=== PATIENT | female | born 1940 | race Caucasian/White ===

== ENCOUNTER → 2020-07-13 12:58 | Outpatient (BNVA) | payer MEDICARE, SELFPAY | PROVIDERS: PCP Pediatrics; Visit Provider Hospitalist | DX: J44.9 Chronic obstructive pulmonary disease, unspecified (principal); J96.10 Chronic respiratory failure, unspecified whether with hypoxia or hypercapnia; J92.0 Pleural plaque with presence of asbestos; K44.9 Diaphragmatic hernia without obstruction or gangrene | CPT/HCPCS: 99212 ==

== ENCOUNTER → 2021-01-11 15:05 | Outpatient (BNVA) | payer MEDICARE, SELFPAY | PROVIDERS: PCP Pediatrics; Visit Provider Hospitalist | DX: J96.11 Chronic respiratory failure with hypoxia (principal); J43.2 Centrilobular emphysema; J92.0 Pleural plaque with presence of asbestos; K44.9 Diaphragmatic hernia without obstruction or gangrene | CPT/HCPCS: 99212 ==

== ENCOUNTER → 2021-03-05 14:40 | Outpatient (BNVA) | payer MEDICARE, SELFPAY | PROVIDERS: PCP Pediatrics; Visit Provider Hospitalist | DX: K44.9 Diaphragmatic hernia without obstruction or gangrene (principal); J92.0 Pleural plaque with presence of asbestos; J96.11 Chronic respiratory failure with hypoxia; J43.2 Centrilobular emphysema | CPT/HCPCS: 99212 ==

== ENCOUNTER 2021-04-13 13:26 | Outpatient (REF) | payer MEDICARE, SELFPAY ==
--- NOTE | ~2021-04-13 | CT_ITS ---
EXAMINATION: CT CHEST WITHOUT CONTRAST CLINICAL INFORMATION: Asbestos-related pleural disease. COMPARISON: Previous chest CT scan September 2019 and chest x-ray December 2019 TECHNIQUE: Multidetector volumetric CT imaging of the chest was done. Axial MIP volume rendering provided. Sagittal and coronal reformatted images were obtained. This CT examination was performed using dose optimization techniques as appropriate, variously including the following: *Automated exposure control *Adjustment of mA and/or kV according to patient size (this includes techniques or standardized protocols for targeted exams where dose is matched to indication/reason for exam; i.e. extremities or head) *Use of iterative reconstruction technique DLP: 160 mGy-cm FINDINGS: LUNGS: There is evidence of emphysema. There is linear calcification in the left upper lobe and along the left pleural fissure that is unchanged. There is a 4 mm semisolid noncalcified left upper lobe nodule axial image 50 series 11 that is stable. There is a 4 mm calcified left lower lobe nodule axial image 1:30 series 11 that is stable. There is a 4 mm calcified right lower lobe nodule axial image 122 series 11. There is mild increased interstitial markings peripherally and at the lung bases with increased peripheral reticulation and some traction bronchiolectasis. MEDIASTINUM: The thyroid gland is unremarkable. There is no mediastinal or hilar adenopathy. The heart does not appear enlarged. There is coronary artery and aortic valve calcification. There is no pericardial effusion. The thoracic aorta is normal in caliber. There is an esophageal hernia. PLEURA: There is no pleural effusion. There is linear left pleural calcification along the diaphragmatic pleural surface. No pleural mass is seen. AXILLA: No lymphadenopathy. UPPER ABDOMEN: There are small calcifications in the spleen probably related to old granulomatous disease. There is diverticulosis of the colon. There is evidence of atherosclerotic disease. OSSEOUS STRUCTURES: There is scoliosis and degenerative changes of the spine. There is a right shoulder replacement. CT/CT chest wo con IMPRESSION: Stable calcified and noncalcified pulmonary nodules. Mild emphysema. Question developing mild peripheral interstitial lung disease. Stable left diaphragmatic pleural calcification.
== END 2021-04-13 13:27 | disposition home or self-care (01) ==
LOC: HO.CT 13:26
PROVIDERS: PCP Pediatrics; Visit Provider Hospitalist
DX: J92.0 Pleural plaque with presence of asbestos (principal); J96.11 Chronic respiratory failure with hypoxia; K44.9 Diaphragmatic hernia without obstruction or gangrene
CPT/HCPCS: 71250

== ENCOUNTER → 2021-07-13 13:11 | Outpatient (BNVA) | payer MEDICARE, SELFPAY | PROVIDERS: PCP Pediatrics; Visit Provider Hospitalist | DX: J92.0 Pleural plaque with presence of asbestos (principal); J96.11 Chronic respiratory failure with hypoxia; J43.2 Centrilobular emphysema; K44.9 Diaphragmatic hernia without obstruction or gangrene; D64.9 Anemia, unspecified | CPT/HCPCS: 99212 ==

== ENCOUNTER 2021-12-21 10:59 | Outpatient (REF) | payer MEDICARE, SELFPAY ==
--- NOTE | ~2021-12-21 | XR_ITS ---
EXAMINATION: XR CHEST CLINICAL INFORMATION: Dorsalgia. COMPARISON: 04/13/2021 and 12/18/2019. TECHNIQUE: 2 views of the chest were obtained. FINDINGS: There is no evidence of acute parenchymal disease, pneumothorax, or pleural effusion. Heart normal size. No evidence of pulmonary edema. There is bibasilar scarring present as well as small calcified plaque involving the left hemidiaphragm. Suture line is seen about the mid lateral left hemithorax. Patient status post previous right shoulder arthroplasty. There is diffuse osteopenia within the thoracic spine. XR/XR chest 2V IMPRESSION: No acute disease.
== END 2021-12-21 11:00 | disposition home or self-care (01) ==
LOC: HO.XRAY 10:59
PROVIDERS: PCP Pediatrics; Visit Provider Hospitalist
DX: J92.0 Pleural plaque with presence of asbestos (principal); J96.11 Chronic respiratory failure with hypoxia; J43.2 Centrilobular emphysema; R07.81 Pleurodynia; M54.9 Dorsalgia, unspecified; K44.9 Diaphragmatic hernia without obstruction or gangrene
CPT/HCPCS: 71046; 99212; Q3014

== ENCOUNTER → 2022-01-25 13:43 | Outpatient (BNVA) | payer MEDICARE, SELFPAY | PROVIDERS: PCP Pediatrics; Visit Provider Hospitalist | DX: J43.2 Centrilobular emphysema (principal); J92.0 Pleural plaque with presence of asbestos; J96.11 Chronic respiratory failure with hypoxia; R07.81 Pleurodynia; M54.9 Dorsalgia, unspecified; K44.9 Diaphragmatic hernia without obstruction or gangrene; Z79.899 Other long term (current) drug therapy; Z99.81 Dependence on supplemental oxygen | CPT/HCPCS: 99212 ==

== ENCOUNTER 2022-03-14 13:14 | Outpatient (REF) | payer MEDICARE, SELFPAY ==
--- NOTE | ~2022-03-14 | CT_ITS ---
EXAMINATION: CT CHEST WITHOUT CONTRAST CLINICAL INFORMATION: Pleural plaque with presence of asbestosis. COMPARISON: CT chest 04/13/2021. TECHNIQUE: Multidetector volumetric CT imaging of the chest was done. Axial MIP volume rendering provided. Sagittal and coronal reformatted images were obtained. This CT examination was performed using dose optimization techniques as appropriate, variously including the following: *Automated exposure control *Adjustment of mA and/or kV according to patient size (this includes techniques or standardized protocols for targeted exams where dose is matched to indication/reason for exam; i.e. extremities or head) *Use of iterative reconstruction technique DLP: 153 mGy-cm FINDINGS: LINUX ARCHITECT: Unremarkable chest exam. LUNGS: There is diffuse centrilobular emphysema with loss of left lung volume. Linear calcification is likely a suture line in the left midlung from postsurgical changes. There is a 3 mm nodule left upper lobe surrounding small pulmonary cyst subpleural location left upper lobe image 53/6, previously measured 4 mm, a 3 mm calcified nodule right lower lobe axial image 112/6. There are punctate 1 mm calcifications scattered throughout the right lower lobe. There are prominent interstitial markings in both lungs and right middle lobe. There is subpleural parenchymal thickening left lower lobe axial image 130/6 and right lower lobe axial image 129/6, likely chronic scarring. There is a pleural-based 4 mm nodular thickening right lower lobe axial image 132/6. MEDIASTINUM: The thyroid lobes are symmetric and normal. The central trachea and the bronchi are widely patent. The heart size and the great vessels are normal caliber. There are coronary artery and cardiac valvular calcifications. No pericardial effusion seen. There is a small hiatal hernia with mild mural thickening distal esophagus and GE junction. PLEURA: There are calcified left diaphragmatic pleural plaques. No pleural effusion seen. There is minimal bilateral posterior pleural thickening. No effusion seen. AXILLA: No abnormal axillary lymph nodes seen. The chest wall is unremarkable. UPPER ABDOMEN: The visualized liver, spleen, pancreas, and bilateral adrenal glands are unremarkable. OSSEOUS STRUCTURES: There are moderate degenerative disc changes and ventral spondylosis throughout the dorsal spine. No aggressive lytic or sclerotic process seen. CT/CT chest wo con IMPRESSION: Diffuse emphysema with likely postsurgical changes left midlung with loss of left lung volume and ipsilateral mediastinal shift. Left diaphragmatic pleural calcifications, noncalcified and calcified solid nodules are essentially stable. Mild cystic changes and peripheral reticular parenchymal thickening in both lower lobes and left upper lobe are stable. No new nodules seen at this time. No abnormal lymphadenopathy. Fleischner guidelines were followed.
== END 2022-03-14 13:15 | disposition home or self-care (01) ==
LOC: HO.CT 13:14
PROVIDERS: Visit Provider Hospitalist
DX: J92.0 Pleural plaque with presence of asbestos (principal); J43.2 Centrilobular emphysema; R07.81 Pleurodynia; M54.9 Dorsalgia, unspecified
CPT/HCPCS: 71250

== ENCOUNTER → 2022-05-27 14:31 | Outpatient (BNVA) | payer MEDICARE, SELFPAY | PROVIDERS: PCP Pediatrics; Visit Provider Hospitalist | DX: J44.1 Chronic obstructive pulmonary disease with (acute) exacerbation (principal); J92.0 Pleural plaque with presence of asbestos; J96.11 Chronic respiratory failure with hypoxia; R07.81 Pleurodynia; M54.9 Dorsalgia, unspecified; K44.9 Diaphragmatic hernia without obstruction or gangrene; Z99.81 Dependence on supplemental oxygen | CPT/HCPCS: 99212 ==

== ENCOUNTER → 2022-09-08 14:52 | Outpatient (BNVA) | payer MEDICARE, SELFPAY | PROVIDERS: PCP Pediatrics; Visit Provider Hospitalist | DX: J44.1 Chronic obstructive pulmonary disease with (acute) exacerbation (principal); J96.11 Chronic respiratory failure with hypoxia; J92.0 Pleural plaque with presence of asbestos; K44.9 Diaphragmatic hernia without obstruction or gangrene | CPT/HCPCS: 99212 ==

== ENCOUNTER 2022-12-15 15:45 | Outpatient (REF) | payer MEDICARE, SELFPAY ==
--- NOTE | ~2022-12-15 | XR_ITS ---
EXAMINATION: XR CHEST CLINICAL INFORMATION: R05.9 - Cough, unspecified COMPARISON: Chest radiographs 12/21/2021, 12/18/2019, 06/04/2019; CT chest noncontrast 03/14/2022. TECHNIQUE: 2 views of the chest were obtained. FINDINGS: There are old postsurgical changes with fine chain len periphery left midlung zone, mild left volume loss, partly exacerbated by slight patient rotation. There is no lobar or segmental airspace consolidation, vascular congestion, or effusion. The costophrenic sulci are clear. Lateral view shows 5 mm nodule overlying the anterior lung base, not seen with certainty on frontal view. Finding not noted on prior exams or CT. Heart size normal. Vascularity normal. There is tortuous thoracic aorta are again seen in small sliding hiatal hernia. No acute bony abnormality. Prior right shoulder prosthesis and multilevel degenerative changes thoracic spine. XR/XR chest 2V IMPRESSION: -5 mm nodule anterior lung base on lateral view. This may be further assessed with noncontrast CT chest. -No airspace consolidation or effusion. Postsurgical changes.
== END 2022-12-15 15:46 | disposition home or self-care (01) ==
LOC: HO.XRAY 15:45
PROVIDERS: PCP Pediatrics; Visit Provider Hospitalist
DX: J44.0 Chronic obstructive pulmonary disease with (acute) lower respiratory infection (principal); R05.9 Cough, unspecified; J92.0 Pleural plaque with presence of asbestos; J96.11 Chronic respiratory failure with hypoxia; K44.9 Diaphragmatic hernia without obstruction or gangrene
CPT/HCPCS: 71046; 99212

== ENCOUNTER → 2023-01-31 13:03 | Outpatient (BNVA) | payer MEDICARE, SELFPAY | PROVIDERS: PCP Pediatrics; Visit Provider Nurse Practitioner Family | DX: J44.0 Chronic obstructive pulmonary disease with (acute) lower respiratory infection (principal); J92.0 Pleural plaque with presence of asbestos; R91.1 Solitary pulmonary nodule | CPT/HCPCS: 99212 ==

== ENCOUNTER 2023-03-06 12:57 | Outpatient (REF) | payer MEDICARE, SELFPAY ==
--- NOTE | ~2023-03-06 | CT_ITS ---
EXAMINATION: CT CHEST WITHOUT CONTRAST CLINICAL INFORMATION: Solitary pulmonary nodule COMPARISON: 03/14/2022 TECHNIQUE: Multidetector volumetric CT imaging of the chest was done. Axial MIP volume rendering provided. Sagittal and coronal reformatted images were obtained. This CT examination was performed using dose optimization techniques as appropriate, variously including the following: *Automated exposure control *Adjustment of mA and/or kV according to patient size (this includes techniques or standardized protocols for targeted exams where dose is matched to indication/reason for exam; i.e. 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 There are changes of granulomatous disease with calcified 0.3 cm right lower lobe. There is areas of honeycombing seen subpleural in the right lower lobe and left upper lobe. Central airways are patent. MEDIASTINUM: The mediastinum is normal. CORONARY ARTERY CALCIFICATION: Heavily calcified coronary arteries. PLEURA: There is no pleural effusion. No pleural mass or thickening. AXILLA: No lymphadenopathy. UPPER ABDOMEN: Visualized loops of bowel reveals changes of diverticulosis in the transverse colon. There are atherosclerotic calcifications in the abdominal aorta, visualized celiac artery. There is moderate hiatal hernia. OSSEOUS STRUCTURES: There are multilevel degenerative changes in thoracic and upper lumbar spine and dextroscoliosis. CT/CT chest wo IV con IMPRESSION: 1. Changes of centrilobular emphysema and chronic interstitial lung disease. 2. Heavily calcified coronary arteries. 3. Diverticulosis in the transverse colon. 4. Hiatal hernia. Fleischner guidelines were followed.
--- NOTE | ~2023-03-06 | XR_ITS ---
EXAMINATION: XR CHEST CLINICAL INFORMATION: Cough, unspecified COMPARISON: Chest 12/15/2022 TECHNIQUE: 2 views of the chest were obtained. FINDINGS: There are old postsurgical changes with fine chain len in the periphery of the left midlung. There is mild left lung volume loss. There is no lobar or segmental airspace consolidation, interstitial pulmonary edema or effusion. Previously noted 5 mm nodule overlying the anterior lung base on the lateral view is similar in appearance though less conspicuous. The cardiomediastinal silhouette is within normal limits. Again noted is a hiatal hernia. No acute bony abnormality. Prior right shoulder prosthesis and multilevel degenerative changes of the thoracic spine are again noted. XR/XR chest 2V IMPRESSION: No acute cardiopulmonary disease.
== END 2023-03-06 12:58 | disposition home or self-care (01) ==
LOC: HO.CT 12:57
PROVIDERS: PCP Pediatrics; Visit Provider Nurse Practitioner Family
DX: R91.1 Solitary pulmonary nodule (principal); R05.9 Cough, unspecified
CPT/HCPCS: 71046; 71250

== ENCOUNTER 2023-05-23 12:52 | Outpatient (AMB) | payer MEDICARE, SELFPAY ==
[2023-05-23 12:52] VITALS: BMI 30.1
--- NOTE | 2023-05-23 12:52 | A.OFFVIS_ITS ---
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 latex [LATEX] Allergy (Severe, Verified 05/23/23 12:53) RASH Penicillins [PENICILLINS] Allergy (Severe, Verified 05/23/23 12:53) HIVES Domperidone Allergy (Severe, Uncoded 05/23/23 12:53) Rash and Hives NSAIDS Allergy (Severe, Uncoded 05/23/23 12:53) Rash and Hives HPI HPI Comments History of Present Illness Details The patient is a 82 year-old woman with a known history of COPD o2 dependent, asbestos related lung disease and chronic cough, hiatal hernia status post fundoplication. Continues to have significant shortness of breath. On chest x-ray the patient also has asbestos plaques from when she was a child. More recently the patient had significant fall fracturing both wrists in also injury to her face. [facility] That was back in February. She has now recovered significantly. She continues to use the oxygen with good effect. She has been describing worsening cough in the last few weeks and also more shortness of breath. She was wondering about increasing her oxygen from 2 L pulse to 3. A total that was okay as long as she did only with activity and brought back down to 2 when she rested recovered. She is upset about the CT scan of the chest with postsurgical changes following left upper lobe lobectomy and potential radiation changes . However, she never had radiation nurse surgery. I did call the radiologist to a done that report and will make sure to have send a copy with the addendum stating that she never had radiation. She has been depressed because he has been indoors now for several weeks. Otherwise no other complaints. She does have moderate emphysema and now with bibasilar areas of scarring. This brings up the question interstitial lung disease related to asbestos or related to her underlying COPD emphysema. It could also be micro aspirations with her reflux disease and hiatal hernia. 09/08/2022 the patient is here for a pulmonary follow-up visit. Overall the patient has been feeling poorly. She started developing significant abdominal pain and diarrhea. she has felt weak. Although, having hard time sleeping. She has been using Ambien 5 mg daily. Patient did follow-up with GI. Her stool studies were positive for Campylobacter jejuni. she was given a couple courses of antibiotics. She is still having significant diarrhea and bloating. She is passing a lot of gas and is uncomfortable. The patient is scheduled to undergo CT scan of the abdomen. The patient did undergo a CT scan of the chest in March 2022 which was otherwise stable with her extensive emphysema and also pulmonary fibrosis likely from asbestos. she continues use her oxygen with good effect. She has not required any additional oxygen. At this point will going to continue with current respiratory regimen. I will go ahead and provide her with the higher dose Ambien with dullness tendons that she would only use it during this month and then hopefully we can wean her down again to 5 mg. 12/15/2022 the patient is here for a pulmonary follow-up visit. She is not feeling well. Significant amount of stress right now the family and she feels that she is holding onto that stress. The patient has been noticing increasing nasal congestion and also productive cough. She has been waking up with significant chest congestion and difficulty breathing. Moderate severity. Denies any fevers or chills. She denies any chest pains or pressure at this time although she does have episodic episodes. She has issues with anemia. Currently on iron. She recently saw her primary care doctor for that. In r egards of her ongoing respiratory symptoms she does have some increased crackles in the left lung base. Therefore will go ahead and treated for bronchopneumonia with doxycycline and also give her some prednisone for COPD exacerbation. She has a hard time tolerating albuterol because it makes her have too much tremors. Therefore I will give him some mix samples of Xopenex that she can try and will send a prescription over to the pharmacy. 05/23/2023 the patient is here for a telehealth visit. The patient complains of progressive dyspnea on exertion. Moderate severity. She does have her oxygen supplementation. She has a POC that reaches up to 3 L pulse rate. Right now she has required 2 L pulse. She also has a concentrator at home that she can use continuously. She does use it at 2 L continuously at nighttime. She continues use respiratory therapy. No need for prednisone or antibiotics. We did review her most recent CT scan from the summer demonstrating asbestos related lung disease likely with some degree of asbestosis and emphysema. At this point the changes are stable and she does not require any additional serial CT scans unless she has any worsening symptoms. We talked about pulmonary rehabilitation. The patient is not interested in in person rehab. I did give her information about online rehab. [facility] Medical History (Updated 05/23/23 @ 12:57 by Vic Shen MD) Anemia Asbestos-induced pleural plaque Diverticulitis Chronic respiratory failure Esophageal dysmotilities Hiatal hernia COPD (chronic obstructive pulmonary disease) Family History (Updated 07/13/20 @ 19:42 by Vic Shen MD) Other Heart & renal disease, hypertensive, with chronic kidney disease Social History Patient Tobacco Use Status: Former Tobacco user Tobacco use type: Cigarette Years Smoked: 60 years Review of Systems Const Denies chills, Denies excessive sweating, Denies fever(s), Denies night sweats and Reports weight loss ENT Reports Normal hearing present Card Denies chest pain, Denies chest pain at rest, Denies chest pain with activity, Denies leg edema and Denies dyspnea Resp Denies chest congestion, Denies excessive phlegm production, Denies pain on inspiration, Denies pain with cough, Denies dyspnea, Denies stridor and Denies wheezing GI Reports early satiety and Reports dyspepsia Musc Denies myalgias Neuro Reports Normal hearing present Endo Denies excessive sweating Manpreet/Lymph Denies lymphadenopathy Aller/Immun Denies seasonal rhinorrhea and Denies wheezing Physical Exam Vital Signs: BMI result Body Mass Index 30.1 Const General: comfortable Orientation/consciousness: patient oriented x3 Resp Effort & Inspection: able to speak in complete sentences Neuro General: patient oriented x3 Cranial nerves: Yes Normal hearing present Assessment & Plan Assessment & Plan (1) COPD (chronic obstructive pulmonary disease): Code(s): J44.9 - Chronic obstructive pulmonary disease, unspecified Qualifiers: COPD type: COPD with acute lower respiratory infection Qualified Code(s): J44.0 - Chronic obstructive pulmonary disease with (acute) lower respiratory infection (2) Asbestos-induced pleural plaque: Code(s): J92.0 - Pleural plaque with presence of asbestos (3) Chronic respiratory failure: Code(s): J96.10 - Chronic respiratory failure, unspecified whether with hypoxia or hypercapnia Qualifiers: Respiratory failure complication: hypoxia Qualified Code(s): J96.11 - Chronic respiratory failure with hypoxia (4) Hiatal hernia: Code(s): K44.9 - Diaphragmatic hernia without obstruction or gangrene (5) Cough: Code(s): R05.9 - Cough, unspecified Qualifiers: Cough type: chronic Qualified Code(s): R05.3 - Chronic cough Plan Continue oxygen supplementation maintain a pulse ox above 90% continue Anoro daily nebulized therapy once a day in the morning and also as needed short-acting beta agonist as needed, switch to Xopenex reflux diet F/U 6 months Telehealth Telehealth Location of provider rendering services: practice address Location of patient: address on file Patient Identification confirmed using: Name, : Yes Telehealth method: voice only Patient verbally consented to treatment: Yes Patient verbally consented to billing insurance company: Yes Patient informed of any privacy concerns related to visit: Yes Coding Level of Care Code Tele Est Pt Level 4 (01134) Diagnoses Chronic obstructive pulmonary disease with acute lower respiratory infection J44.0 COPD type: COPD with acute lower respiratory infection Asbestos-induced pleural plaque J92.0 Chronic respiratory failure with hypoxia J96.11 Respiratory failure complication: hypoxia Hiatal hernia K44.9 Chronic cough R05.3 Cough type: chronic Time Spent (min) 14
== END 2023-05-23 13:21 | disposition home or self-care (01) ==
LOC: HO.HPS 12:52
PROVIDERS: PCP Pediatrics; Visit Provider Hospitalist
DX: J44.0 Chronic obstructive pulmonary disease with (acute) lower respiratory infection (principal); J92.0 Pleural plaque with presence of asbestos; J96.11 Chronic respiratory failure with hypoxia; R05.3 Chronic cough
CPT/HCPCS: G2252

== ENCOUNTER → 2023-05-23 12:52 | Outpatient (BNVA) | payer MEDICARE, SELFPAY | PROVIDERS: PCP Pediatrics; Visit Provider Hospitalist ==

== ENCOUNTER 2023-11-28 14:07 | Outpatient (AMB) | payer MEDICARE, SELFPAY ==
--- NOTE | 2023-11-28 14:17 | MHC.OFFVIS ---
Vital Signs 11/28/23 14:19 Height 4 ft 11 in Weight 139 lb BMI 28.1 BP 128/60 Blood Pressure Location Lt brachial Position Sitting Pulse 92 Pulse Source Pulse Oximeter Pulse Oximetry (%) 93 Oxygen Delivery Method Room Air Comment 3 Liters Oxygen([employer]) Intake Visit Reasons: COPD follow-up Network Security Analyst Required: No Allergies clopidogrel [From PLAVIX] Allergy (Severe, Verified 11/28/23 14:17) MUSCLE WEAKNESS. latex [LATEX] Allergy (Severe, Verified 11/28/23 14:17) RASH Penicillins [PENICILLINS] Allergy (Severe, Verified 11/28/23 14:17) HIVES Domperidone Allergy (Severe, Uncoded 11/28/23 14:17) Rash and Hives NSAIDS Allergy (Severe, Uncoded 11/28/23 14:17) Rash and Hives HPI Comments Details: The patient is a 82 year-old woman with a known history of COPD o2 dependent, asbestos related lung disease and chronic cough, hiatal hernia status post fundoplication. Continues to have significant shortness of breath. On chest x-ray the patient also has asbestos plaques from when she was a child. More recently the patient had significant fall fracturing both wrists in also injury to her face. [facility] That was back in February. She has now recovered significantly. She continues to use the oxygen with good effect. She has been describing worsening cough in the last few weeks and also more shortness of breath. She was wondering about increasing her oxygen from 2 L pulse to 3. A total that was okay as long as she did only with activity and brought back down to 2 when she rested recovered. She is upset about the CT scan of the chest with postsurgical changes following left upper lobe lobectomy and potential radiation changes . However, she never had radiation nurse surgery. I did call the radiologist to a done that report and will make sure to have send a copy with the addendum stating that she never had radiation. She has been depressed because he has been indoors now for several weeks. Otherwise no other complaints. She does have moderate emphysema and now with bibasilar areas of scarring. This brings up the question interstitial lung disease related to asbestos or related to her underlying COPD emphysema. It could also be micro aspirations with her reflux disease and hiatal hernia. 09/08/2022 the patient is here for a pulmonary follow-up visit. Overall the patient has been feeling poorly. She started developing significant abdominal pain and diarrhea. she has felt weak. Although, having hard time sleeping. She has been using Ambien 5 mg daily. Patient did follow-up with GI. Her stool studies were positive for Campylobacter jejuni. she was given a couple courses of antibiotics. She is still having significant diarrhea and bloating. She is passing a lot of gas and is uncomfortable. The patient is scheduled to undergo CT scan of the abdomen. The patient did undergo a CT scan of the chest in March 2022 which was otherwise stable with her extensive emphysema and also pulmonary fibrosis likely from asbestos. she continues use her oxygen with good effect. She has not required any additional oxygen. At this point will going to continue with current respiratory regimen. I will go ahead and provide her with the higher dose Ambien with dullness tendons that she would only use it during this month and then hopefully we can wean her down again to 5 mg. 12/15/2022 the patient is here for a pulmonary follow-up visit. She is not feeling well. Significant amount of stress right now the family and she feels that she is holding onto that stress. The patient has been noticing increasing nasal congestion and also productive cough. She has been waking up with significant chest congestion and difficulty breathing. Moderate severity. Denies any fevers or chills. She denies any chest pains or pressure at this time although she does have episodic episodes. She has issues with anemia. Currently on iron. She recently saw her primary care doctor for that. In regards of her ongoing respiratory symptoms she does have some increased crackles in the left lung base. Therefore will go ahead and treated for bronchopneumonia with doxycycline and also give her some prednisone for COPD exacerbation. She has a hard time tolerating albuterol because it makes her have too much tremors. Therefore I will give him some mix samples of Xopenex that she can try and will send a prescription over to the pharmacy. 05/23/2023 the patient is here for a telehealth visit. The patient complains of progressive dyspnea on exertion. Moderate severity. She does have her oxygen supplementation. She has a POC that reaches up to 3 L pulse rate. Right now she has required 2 L pulse. She also has a concentrator at home that she can use continuously. She does use it at 2 L continuously at nighttime. She continues use respiratory therapy. No need for prednisone or antibiotics. We did review her most recent CT scan from the summer of 2022 demonstrating asbestos related lung disease likely with some degree of asbestosis and emphysema. At this point the changes are stable and she does not require any additional serial CT scans unless she has any worsening symptoms. We talked about pulmonary rehabilitation. The patient is not interested in in person rehab. I did give her information about online rehab. 11/28/2023 the patient is here for hospital follow-up visit. She has not been feeling well. She states that her having some difficulties after having a knee to replacement. The surgery did not taking therefore he was mobilized initially for 6 weeks and then immobilized again for 6 weeks. Therefore, she has been doing most of the housework. She has had increased amount of stress because of the health issues going on. She went to the ER developing some back pain and shortness of breath. She was treated and released. She was also seen by urgent care. The patient ultimately developed elevations in the blood pressure up to about 190/100 and she felt kind of ?funny?. She ended up going to the ER. They treated her for low oxygen but they did not bother to tolerate anything about the blood pressure. It has not documented in any of the blood work. She was briefly admitted to the hospital with COPD exacerbation. Her blood pressure stabilized. Heart rate was also stable. She does take Coumadin and also takes blood pressure medications. The patient has been having issues with her significant hiatal hernia. Having significant nausea. She is also having issues with swallowing dysphagia. The patient is willing to try small dose of a promotility agent, Reglan. This way we can try to improve her motility. Although she understands that high dose this could result in irreversible tremors. Therefore will put him on a small dose of medications if helps with the nausea and dysphagia. If it does not she can always stop it. The patient also has been coughing up some secretions. She also some blood-tinged secretions. I did review her recent CT scan of the chest that she had had [facility] demonstrating chronic changes including emphysema postoperative changes some scarring but no acute airspace disease. The patient has been using her oxygen with good effect. Today her oxygen was in the high 80s but also because her oxygen had accidentally turned off. [facility] Medical History (Updated 05/23/23 @ 12:57 by Vic Shen MD) Anemia Asbestos-induced pleural plaque Diverticulitis Chronic respiratory failure Esophageal dysmotilities Hiatal hernia COPD (chronic obstructive pulmonary disease) Family History (Updated 07/13/20 @ 19:42 by Vic Shen MD) Other Heart & renal disease, hypertensive, with chronic kidney disease Social History Patient Tobacco Use Status: Former Tobacco user Tobacco use type: Cigarette Years Smoked: 60 years Review of Systems Const Denies chills, Denies excessive sweating, Reports fatigue, Denies fever(s), Denies night sweats and Reports weight loss ENT Reports Normal hearing present and Reports dysphagia Card Denies chest pain, Denies chest pain at rest, Denies chest pain with activity, Denies leg edema, Denies dyspnea and Reports dyspnea on exertion Resp Denies chest congestion, Denies excessive phlegm production, Denies pain on inspiration, Denies pain with cough, Denies dyspnea, Reports dyspnea on exertion, Denies stridor and Denies wheezing GI Reports dysphagia, Reports early satiety, Reports dyspepsia and Reports nausea Musc Denies myalgias Neuro Reports Normal hearing present Endo Denies excessive sweating and Reports fatigue Manpreet/Lymph Denies lymphadenopathy Aller/Immun Denies seasonal rhinorrhea and Denies wheezing Physical Exam Vital Signs: Last Vital Signs Pulse 92 11/28/23 14:19 BP 128/60 11/28/23 14:19 Pulse Ox 93 11/28/23 14:19 Oxygen Delivery Method Room Air 11/28/23 14:19 BMI result Body Mass Index 28.1 Const General: alert Neck Neck: Yes normal visual inspection, Yes full ROM and Yes no lymphadenopathy Chest Chest palpation & inspection: normal inspection of the chest Resp Effort & Inspection: prolonged expiratory phase Auscultation: crackles on the left, no wheezes and diminished lung sounds Cardio Rate: regular rate Rhythm: regular rhythm Heart sounds: S1 normal heart sound present, S2 normal heart sound present and Murmur heart sound present systolic IV/ GI Palpation (GI): Soft to palpation and nontender Auscultation: normal bowel sounds Neuro Cranial nerves: Yes Normal hearing present Assessment & Plan Assessment & Plan (1) COPD (chronic obstructive pulmonary disease): Code(s): J44.9 - Chronic obstructive pulmonary disease, unspecified Category: Medical Qualifiers: COPD type: COPD with acute lower respiratory infection Qualified Code(s): J44.0 - Chronic obstructive pulmonary disease with (acute) lower respiratory infection (2) Asbestos-induced pleural plaque: Code(s): J92.0 - Pleural plaque with presence of asbestos Category: Medical (3) Chronic respiratory failure: Code(s): J96.10 - Chronic respiratory failure, unspecified whether with hypoxia or hypercapnia Category: Medical Qualifiers: Respiratory failure complication: hypoxia Qualified Code(s): J96.11 - Chronic respiratory failure with hypoxia (4) Hiatal hernia: Code(s): K44.9 - Diaphragmatic hernia without obstruction or gangrene Category: Medical (5) Cough: Code(s): R05.9 - Cough, unspecified Category: Medical Qualifiers: Cough type: chronic Qualified Code(s): R05.3 - Chronic cough Plan Continue oxygen supplementation maintain a pulse ox above 90% continue Anoro daily nebulized therapy once a day in the morning and also as needed short-acting beta agonist as needed, switch to Xopenex reflux diet srart reglan 5mg BID, stop if any tremors arise zofran as needed consider barium swallow if no better F/U with PCP regarding labile BP start Doxycycline for sinusitis F/U 3-4 months Medications: New metoclopramide HCl (Reglan) 5 mg PO BID 60 tabs 1RF 30 days doxycycline monohydrate 100 mg PO BID 28 tabs 0RF 14 days ondansetron 4 mg PO Q8H PRN 20 tabs 0RF nausea and vomiting 10 days Coding Level of Care Code Est Pt Level 4 (99759) Diagnoses Chronic obstructive pulmonary disease with acute lower respiratory infection J44.0 COPD type: COPD with acute lower respiratory infection Asbestos-induced pleural plaque J92.0 Chronic respiratory failure with hypoxia J96.11 Respiratory failure complication: hypoxia Hiatal hernia K44.9 Chronic cough R05.3 Cough type: chronic Time Spent (min) 21
[2023-11-28 14:19] VITALS: BP 128/60; PULSE 92; O2SAT 93; BMI 28.1
== END 2023-11-28 14:57 | disposition home or self-care (01) ==
PROVIDERS: PCP Pediatrics; Visit Provider Hospitalist
DX: J44.0 Chronic obstructive pulmonary disease with (acute) lower respiratory infection (principal); J92.0 Pleural plaque with presence of asbestos; J96.11 Chronic respiratory failure with hypoxia; K44.9 Diaphragmatic hernia without obstruction or gangrene; R05.3 Chronic cough
CPT/HCPCS: 99214

== ENCOUNTER → 2023-11-28 14:07 | Outpatient (BNVA) | payer MEDICARE, SELFPAY | PROVIDERS: PCP Pediatrics; Visit Provider Hospitalist | DX: J44.0 Chronic obstructive pulmonary disease with (acute) lower respiratory infection (principal); J92.0 Pleural plaque with presence of asbestos; J96.11 Chronic respiratory failure with hypoxia; R05.3 Chronic cough; K44.9 Diaphragmatic hernia without obstruction or gangrene | CPT/HCPCS: 99212 ==

== ENCOUNTER 2024-04-23 09:37 | Outpatient (AMB) | payer MEDICARE, SELFPAY ==
--- NOTE | 2024-04-23 09:43 | MHC.OFFVIS ---
Vital Signs 04/23/24 09:45 Height 4 ft 11 in Weight 129 lb BMI 26.1 BP 128/70 Blood Pressure Location Lt brachial Position Sitting Pulse 90 Pulse Source Pulse Oximeter Pulse Oximetry (%) 93 Oxygen Delivery Method Room Air Comment 2 Liters Oxygen(Inogen) Intake Visit Reasons: COPD [employer] Required: No Allergies clopidogrel [From PLAVIX] Allergy (Severe, Verified 04/23/24 09:44) MUSCLE WEAKNESS. latex [LATEX] Allergy (Severe, Verified 04/23/24 09:44) RASH Penicillins [PENICILLINS] Allergy (Severe, Verified 04/23/24 09:44) HIVES Domperidone Allergy (Severe, Uncoded 04/23/24 09:44) Rash and Hives NSAIDS Allergy (Severe, Uncoded 04/23/24 09:44) Rash and Hives HPI Comments Details: The patient is a 83 year-old woman with a known history of COPD o2 dependent, asbestos related lung disease and chronic cough, hiatal hernia status post fundoplication. Continues to have significant shortness of breath. On chest x-ray the patient also has asbestos plaques from when she was a child. More recently the patient had significant fall fracturing both wrists in also injury to her face. [facility] That was back in February. She has now recovered significantly. She continues to use the oxygen with good effect. She has been describing worsening cough in the last few weeks and also more shortness of breath. She was wondering about increasing her oxygen from 2 L pulse to 3. A total that was okay as long as she did only with activity and brought back down to 2 when she rested recovered. She is upset about the CT scan of the chest with postsurgical changes following left upper lobe lobectomy and potential radiation changes . However, she never had radiation nurse surgery. I did call the radiologist to a done that report and will make sure to have send a copy with the addendum stating that she never had radiation. She has been depressed because he has been indoors now for several weeks. Otherwise no other complaints. She does have moderate emphysema and now with bibasilar areas of scarring. This brings up the question interstitial lung disease related to asbestos or related to her underlying COPD emphysema. It could also be micro aspirations with her reflux disease and hiatal hernia. 09/08/2022 the patient is here for a pulmonary follow-up visit. Overall the patient has been feeling poorly. She started developing significant abdominal pain and diarrhea. she has felt weak. Although, having hard time sleeping. She has been using Ambien 5 mg daily. Patient did follow-up with GI. Her stool studies were positive for Campylobacter jejuni. she was given a couple courses of antibiotics. She is still having significant diarrhea and bloating. She is passing a lot of gas and is uncomfortable. The patient is scheduled to undergo CT scan of the abdomen. The patient did undergo a CT scan of the chest in March 2022 which was otherwise stable with her extensive emphysema and also pulmonary fibrosis likely from asbestos. she continues use her oxygen with good effect. She has not required any additional oxygen. At this point will going to continue with current respiratory regimen. I will go ahead and provide her with the higher dose Ambien with dullness tendons that she would only use it during this month and then hopefully we can wean her down again to 5 mg. 12/15/2022 the patient is here for a pulmonary follow-up visit. She is not feeling well. Significant amount of stress right now the family and she feels that she is holding onto that stress. The patient has been noticing increasing nasal congestion and also productive cough. She has been waking up with significant chest congestion and difficulty breathing. Moderate severity. Denies any fevers or chills. She denies any chest pains or pressure at this time although she does have episodic episodes. She has issues with anemia. Currently on iron. She recently saw her primary care doctor for that. In regards of her ongoing respiratory symptoms she does have some increased crackles in the left lung base. Therefore will go ahead and treated for bronchopneumonia with doxycycline and also give her some prednisone for COPD exacerbation. She has a hard time tolerating albuterol because it makes her have too much tremors. Therefore I will give him some mix samples of Xopenex that she can try and will send a prescription over to the pharmacy. 05/23/2023 the patient is here for a telehealth visit. The patient complains of progressive dyspnea on exertion. Moderate severity. She does have her oxygen supplementation. She has a POC that reaches up to 3 L pulse rate. Right now she has required 2 L pulse. She also has a concentrator at home that she can use continuously. She does use it at 2 L continuously at nighttime. She continues use respiratory therapy. No need for prednisone or antibiotics. We did review her most recent CT scan from the summer of 2022 demonstrating asbestos related lung disease likely with some degree of asbestosis and emphysema. At this point the changes are stable and she does not require any additional serial CT scans unless she has any worsening symptoms. We talked about pulmonary rehabilitation. The patient is not interested in in person rehab. I did give her information about online rehab. 11/28/2023 the patient is here for hospital follow-up visit. She has not been feeling well. She states that her having some difficulties after having a knee to replacement. The surgery did not taking therefore he was mobilized initially for 6 weeks and then immobilized again for 6 weeks. Therefore, she has been doing most of the housework. She has had increased amount of stress because of the health issues going on. She went to the ER developing some back pain and shortness of breath. She was treated and released. She was also seen by urgent care. The patient ultimately developed elevations in the blood pressure up to about 190/100 and she felt kind of ?funny?. She ended up going to the ER. They treated her for low oxygen but they did not bother to tolerate anything about the blood pressure. It has not documented in any of the blood work. She was briefly admitted to the hospital with COPD exacerbation. Her blood pressure stabilized. Heart rate was also stable. She does take Coumadin and also takes blood pressure medications. The patient has been having issues with her significant hiatal hernia. Having significant nausea. She is also having issues with swallowing dysphagia. The patient is willing to try small dose of a promotility agent, Reglan. This way we can try to improve her motility. Although she understands that high dose this could result in irreversible tremors. Therefore will put him on a small dose of medications if helps with the nausea and dysphagia. If it does not she can always stop it. The patient also has been coughing up some secretions. She also some blood-tinged secretions. I did review her recent CT scan of the chest that she had had [facility] demonstrating chronic changes including emphysema postoperative changes some scarring but no acute airspace disease. The patient has been using her oxygen with good effect. Today her oxygen was in the high 80s but also because her oxygen had accidentally turned off. 04/23/2024 the patient is here for a pulmonary follow-up visit. Overall she is doing fairly well from a respiratory status. She continues use her oxygen. Currently has a portable oxygen concentrator. She does have difficulties with her perforated nasal septum. This is causing her to have some bleeding. Will go ahead and send her Bactroban to see this provides her some relief. She has also has saline gel to provide her some relief as well. She can also take a break from the oxygen at times. In addition to that she still having issues with her hiatal hernia. Although she knows that is usually affected by certain things that she eats. We did talk about eating techniques to avoid significant dysphagia. The patient continues in the Anoro. She has not had to use her rescue inhaler which is reassuring. She recently saw her labor representative and she was told that she has worsening valvular disease. Likely aortic stenosis among others. She is scheduled to undergo a cardiac catheterization. I did explain to her the cardiac catheterization will give her better information about the degree of the severity of the valves and at that point she can decide how to move forward. She continues on the Coumadin. She is tolerating well. Recently she did have a fall and she did not follow-up in the ER. She also had some massage down to lower extremities causing some bruising. So therefore she needs to be careful based on the fact that she is on anticoagulation. Also to note the patient is aware that she can not be without anticoagulation because of risk of blood clots is high. Therefore she definitely needs bridging with Lovenox for any time off the Coumadin. [facility] Medical History (Updated 04/23/24 @ 20:03 by Vic Shen MD) Valvular heart disease Anemia Asbestos-induced pleural plaque Diverticulitis Chronic respiratory failure Esophageal dysmotilities Hiatal hernia COPD (chronic obstructive pulmonary disease) Family History (Updated 07/13/20 @ 19:42 by Vic Shen MD) Other Heart & renal disease, hypertensive, with chronic kidney disease Social History Patient Tobacco Use Status: Former Tobacco user Tobacco use type: Cigarette Years Smoked: 60 years Review of Systems Const Denies chills, Denies excessive sweating, Reports fatigue, Denies fever(s) and Denies night sweats ENT Reports dysphagia Card Denies chest pain, Denies chest pain at rest, Denies chest pain with activity, Denies leg edema, Denies dyspnea and Reports dyspnea on exertion Resp Denies chest congestion, Denies excessive phlegm production, Denies pain on inspiration, Denies pain with cough, Denies dyspnea, Reports dyspnea on exertion, Denies stridor and Denies wheezing GI Reports dysphagia, Reports early satiety, Reports dyspepsia and Reports nausea Musc Denies myalgias Endo Denies excessive sweating and Reports fatigue Manpreet/Lymph Denies lymphadenopathy Aller/Immun Denies seasonal rhinorrhea and Denies wheezing Physical Exam Vital Signs: Last Vital Signs Pulse 90 04/23/24 09:45 BP 128/70 04/23/24 09:45 Pulse Ox 93 04/23/24 09:45 Oxygen Delivery Method Room Air 04/23/24 09:45 BMI result Body Mass Index 26.1 Const General: alert Neck Neck: Yes normal visual inspection, Yes full ROM and Yes no lymphadenopathy Chest Chest palpation & inspection: normal inspection of the chest Resp Effort & Inspection: normal respiratory effort Auscultation: crackles on the left, no wheezes and diminished lung sounds Cardio Rate: regular rate Rhythm: regular rhythm Heart sounds: S1 normal heart sound present, S2 normal heart sound present and Murmur heart sound present systolic IV/ GI Palpation (GI): Soft to palpation and nontender Auscultation: normal bowel sounds Assessment & Plan Assessment & Plan (1) COPD (chronic obstructive pulmonary disease): Code(s): J44.9 - Chronic obstructive pulmonary disease, unspecified Category: Medical Qualifiers: COPD type: COPD with acute lower respiratory infection Qualified Code(s): J44.0 - Chronic obstructive pulmonary disease with (acute) lower respiratory infection (2) Asbestos-induced pleural plaque: Code(s): J92.0 - Pleural plaque with presence of asbestos Category: Medical (3) Chronic respiratory failure: Code(s): J96.10 - Chronic respiratory failure, unspecified whether with hypoxia or hypercapnia Category: Medical Qualifiers: Respiratory failure complication: hypoxia Qualified Code(s): J96.11 - Chronic respiratory failure with hypoxia (4) Hiatal hernia: Code(s): K44.9 - Diaphragmatic hernia without obstruction or gangrene Category: Medical (5) Cough: Code(s): R05.9 - Cough, unspecified Category: Medical Qualifiers: Cough type: chronic Qualified Code(s): R05.3 - Chronic cough (6) Valvular heart disease: Code(s): I38 - Endocarditis, valve unspecified Category: Medical Plan Continue oxygen supplementation maintain a pulse ox above 90% continue Anoro daily nebulized therapy once a day in the morning and also as needed short-acting beta agonist as needed, switch to Xopenex reflux diet stpped reglan zofran as needed bactroban to nares Awaiting cardiac cath to asses valvular disease F/U 6 months Medications: New mupirocin 2% 1 appl topical BID 22 grams 2RF 7 days Coding Level of Care Code Est Pt Level 4 (93266) Complex EM visit Add On G2211 Diagnoses Chronic obstructive pulmonary disease with acute lower respiratory infection J44.0 COPD type: COPD with acute lower respiratory infection Asbestos-induced pleural plaque J92.0 Chronic respiratory failure with hypoxia J96.11 Respiratory failure complication: hypoxia Hiatal hernia K44.9 Chronic cough R05.3 Cough type: chronic Valvular heart disease I38 Time Spent (min) 17
[2024-04-23 09:45] VITALS: BP 128/70; PULSE 90; O2SAT 93; BMI 26.1
== END 2024-04-23 10:12 | disposition home or self-care (01) ==
PROVIDERS: PCP Pediatrics; Visit Provider Hospitalist
DX: J44.0 Chronic obstructive pulmonary disease with (acute) lower respiratory infection (principal); J92.0 Pleural plaque with presence of asbestos; J96.11 Chronic respiratory failure with hypoxia; K44.9 Diaphragmatic hernia without obstruction or gangrene; R05.3 Chronic cough; I38 Endocarditis, valve unspecified
CPT/HCPCS: 99214; G2211

== ENCOUNTER → 2024-04-23 09:37 | Outpatient (BNVA) | payer MEDICARE, SELFPAY | PROVIDERS: PCP Pediatrics; Visit Provider Hospitalist | DX: J44.0 Chronic obstructive pulmonary disease with (acute) lower respiratory infection (principal); J92.0 Pleural plaque with presence of asbestos; J96.11 Chronic respiratory failure with hypoxia; R05.3 Chronic cough; I38 Endocarditis, valve unspecified; K44.9 Diaphragmatic hernia without obstruction or gangrene; Z99.81 Dependence on supplemental oxygen | CPT/HCPCS: 99212 ==

== ENCOUNTER 2024-10-24 13:56 | Outpatient (AMB) | payer MEDICARE, SELFPAY ==
[2024-10-24 14:00] VITALS: BP 124/72; PULSE 64; O2SAT 99; BMI 26.0
--- NOTE | 2024-10-24 14:00 | A.OFFVIS_ITS ---
Vital Signs 10/24/24 14:00 Height 4 ft 11 in Weight 128 lb 15.527 oz BMI 26.0 BP 124/72 Blood Pressure Location Lt brachial Position Sitting Pulse 64 Pulse Source Pulse Oximeter Pulse Oximetry (%) 99 Oxygen Delivery Method Nasal Cannula Oxygen Flow Rate 2 Intake Visit Reasons: COPD Allergies clopidogrel [From PLAVIX] Allergy (Severe, Verified 10/24/24 14:08) MUSCLE WEAKNESS. latex [LATEX] Allergy (Severe, Verified 10/24/24 14:08) RASH Penicillins [PENICILLINS] Allergy (Severe, Verified 10/24/24 14:08) HIVES Domperidone Allergy (Severe, Uncoded 10/24/24 14:08) Rash and Hives NSAIDS Allergy (Severe, Uncoded 10/24/24 14:08) Rash and Hives HPI Comments Details: The patient is a 83 year-old woman with a known history of COPD o2 dependent, asbestos related lung disease and chronic cough, hiatal hernia status post fundoplication. Continues to have significant shortness of breath. On chest x- ray the patient also has asbestos plaques from when she was a child. More recently the patient had significant fall fracturing both wrists in also injury to her face. [facility] That was back in February. She has now recovered significantly. She continues to use the oxygen with good effect. She has been describing worsening cough in the last few weeks and also more shortness of breath. She was wondering about increasing her oxygen from 2 L pulse to 3. A total that was okay as long as she did only with activity and brought back down to 2 when she rested recovered. She is upset about the CT scan of the chest with postsurgical changes following left upper lobe lobectomy and potential radiation changes . However, she never had radiation nurse surgery. I did call the radiologist to a done that report and will make sure to have send a copy with the addendum stating that she never had radiation. She has been depressed because he has been indoors now for several weeks. Otherwise no other complaints. She does have moderate emphysema and now with bibasilar areas of scarring. This brings up the question interstitial lung disease related to asbestos or related to her underlying COPD emphysema. It could also be micro aspirations with her reflux disease and hiatal hernia. 09/08/2022 the patient is here for a pulmonary follow-up visit. Overall the patient has been feeling poorly. She started developing significant abdominal pain and diarrhea. she has felt weak. Although, having hard time sleeping. She has been using Ambien 5 mg daily. Patient did follow-up with GI. Her stool studies were positive for Campylobacter jejuni. she was given a couple courses of antibiotics. She is still having significant diarrhea and bloating. She is passing a lot of gas and is uncomfortable. The patient is scheduled to undergo CT scan of the abdomen. The patient did undergo a CT scan of the chest in March 2022 which was otherwise stable with her extensive emphysema and also pulmonary fibrosis likely from asbestos. she continues use her oxygen with good effect. She has not required any additional oxygen. At this point will going to continue with current respiratory regimen. I will go ahead and provide her with the higher dose Ambien with dullness tendons that she would only use it during this month and then hopefully we can wean her down again to 5 mg. 12/15/2022 the patient is here for a pulmonary follow-up visit. She is not feeling well. Significant amount of stress right now the family and she feels that she is holding onto that stress. The patient has been noticing increasing nasal congestion and also productive cough. She has been waking up with significant chest congestion and difficulty breathing. Moderate severity. D enies any fevers or chills. She denies any chest pains or pressure at this time although she does have episodic episodes. She has issues with anemia. Currently on iron. She recently saw her primary care doctor for that. In regards of her ongoing respiratory symptoms she does have some increased crackles in the left lung base. Therefore will go ahead and treated for bronchopneumonia with doxycycline and also give her some prednisone for COPD exacerbation. She has a hard time tolerating albuterol because it makes her have too much tremors. Therefore I will give him some mix samples of Xopenex that she can try and will send a prescription over to the pharmacy. 05/23/2023 the patient is here for a telehealth visit. The patient complains of progressive dyspnea on exertion. Moderate severity. She does have her oxygen supplementation. She has a POC that reaches up to 3 L pulse rate. Right now she has required 2 L pulse. She also has a concentrator at home that she can use continuously. She does use it at 2 L continuously at nighttime. She continues use respiratory therapy. No need for prednisone or antibiotics. We did review her most recent CT scan from the summer of 2022 demonstrating asbestos related lung disease likely with some degree of asbestosis and emphysema. At this point the changes are stable and she does not require any additional serial CT scans unless she has any worsening symptoms. We talked about pulmonary rehabilitation. The patient is not interested in in person rehab. I did give her information about online rehab. 11/28/2023 the patient is here for hospital follow-up visit. She has not been feeling well. She states that her having some difficulties after having a knee to replacement. The surgery did not taking therefore he was mobilized initially for 6 weeks and then immobilized again for 6 weeks. Therefore, she has been doing most of the housework. She has had increased amount of stress because of the health issues going on. She went to the ER developing some back pain and shortness of breath. She was treated and released. She was also seen by urgent care. The patient ultimately developed elevations in the blood pressure up to about 190/100 and she felt kind of ?funny?. She ended up going to the ER. They treated her for low oxygen but they did not bother to tolerate anything about the blood pressure. It has not documented in any of the blood work. She was briefly admitted to the hospital with COPD exacerbation. Her blood pressure stabilized. Heart rate was also stable. She does take Coumadin and also takes blood pressure medications. The patient has been having issues with her significant hiatal hernia. Having significant nausea. She is also having issues with swallowing dysphagia. The patient is willing to try small dose of a promotility agent, Reglan. This way we can try to improve her motility. Although she understands that high dose this could result in irreversible tremors. Therefore will put him on a small dose of medications if helps with the nausea and dysphagia. If it does not she can always stop it. The patient also has been coughing up some secretions. She also some blood-tinged secretions. I did review her recent CT scan of the chest that she had had [facility] demonstrating chronic changes including emphysema postoperative changes some scarring but no acute airspace disease. The patient has been using her oxygen with good effect. Today her oxygen was in the high 80s but also because her oxygen had accidentally turned off. 04/23/2024 the patient is here for a pulmonary follow-up visit. Overall she is doing fairly well from a respiratory status. She continues use her oxygen. Currently has a portable oxygen concentrator. She does have d ifficulties with her perforated nasal septum. This is causing her to have some bleeding. Will go ahead and send her Bactroban to see this provides her some relief. She has also has saline gel to provide her some relief as well. She can also take a break from the oxygen at times. In addition to that she still having issues with her hiatal hernia. Although she knows that is usually affected by certain things that she eats. We did talk about eating techniques to avoid significant dysphagia. The patient continues in the Anoro. She has not had to use her rescue inhaler which is reassuring. She recently saw her slasher machine operator and she was told that she has worsening valvular disease. Likely aortic stenosis among others. She is scheduled to undergo a cardiac catheterization. I did explain to her the cardiac catheterization will give her better information about the degree of the severity of the valves and at that point she can decide how to move forward. She continues on the Coumadin. She is tolerating well. Recently she did have a fall and she did not follow-up in the ER. She also had some massage down to lower extremities causing some bruising. So therefore she needs to be careful based on the fact that she is on anticoagulation. Also to note the patient is aware that she can not be without anticoagulation because of risk of blood clots is high. Therefore she defini tely needs bridging with Lovenox for any time off the Coumadin. 10/24/2024 the patient is here for a pulmonary follow-up visit. Overall the patient has been doing okay. Since we last spoke she did have her trans vascular aortic valve replacement without any difficulties. Actually her breathing got a lot better. In addition to that she had a fall or to which she ended up fracturing her pelvis. She did not need surgery although she need rehabilitation. She is back using her walker and walking and she is doing okay. She is using her oxygen with good effect. She is also using her respiratory therapy with good effect. When she was at [facility] back in June she did undergo a CT scan of the chest which I personally reviewed with her. She does have a [id number] hiatal hernia and otherwise interstitial changes specially since she has been exposed to asbestos. But overall pretty stable and no significant findings to be concerned about. Will plan to follow-up in a year's time if the patient has any issues prior to that she will call for an earlier assessment. [facility] Medical History (Updated 10/24/24 @ 22:01 by Vic Shen MD) Valvular heart disease Anemia Asbestos-induced pleural plaque Diverticulitis Chronic respiratory failure Esophageal dysmotilities Hiatal hernia COPD (chronic obstructive pulmonary disease) Family History (Updated 07/13/20 @ 19:42 by Vic Shen MD) Other Heart & renal disease, hypertensive, with chronic kidney disease Social History Patient Tobacco Use Status: Former Tobacco user Tobacco use type: Cigarette Years Smoked: 60 years Review of Systems Const Denies chills, Denies excessive sweating, Reports fatigue, Denies fever(s) and Denies night sweats ENT Reports dysphagia Card Denies chest pain, Denies chest pain at rest, Denies chest pain with activity, Denies leg edema, Denies dyspnea and Reports dyspnea on exertion Resp Denies chest congestion, Denies excessive phlegm production, Denies pain on inspiration, Denies pain with cough, Denies dyspnea, Reports dyspnea on exertion, Denies stridor and Denies wheezing GI Reports dysphagia, Reports early satiety, Reports dyspepsia and Reports nausea Musc Reports abnormal gait and Reports myalgias Neuro Reports abnormal gait Endo Denies excessive sweating and Reports fatigue Manpreet/Lymph Denies lymphadenopathy Aller/Immun Denies seasonal rhinorrhea and Denies wheezing Physical Exam Vital Signs: Last Vital Signs Pulse 64 10/24/24 14:00 BP 124/72 10/24/24 14:00 Pulse Ox 99 10/24/24 14:00 Oxygen Delivery Method Nasal Cannula 10/24/24 14:00 Oxygen Flow Rate 2 10/24/24 14:00 BMI result Body Mass Index 26.0 Const General: alert Neck Neck: Yes normal visual inspection, Yes full ROM and Yes no lymphadenopathy Chest Chest palpation & inspection: normal inspection of the chest Resp Effort & Inspection: normal respiratory effort Auscultation: crackles on the left, no wheezes and diminished lung sounds Cardio Rate: regular rate Rhythm: regular rhythm Heart sounds: S1 normal heart sound present, S2 normal heart sound present and Murmur heart sound present systolic IV/ GI Palpation (GI): Soft to palpation and nontender Auscultation: normal bowel sounds Assessment & Plan Assessment & Plan (1) COPD (chronic obstructive pulmonary disease): Code(s): J44.9 - Chronic obstructive pulmonary disease, unspecified Category: Medical Qualifiers: COPD type: COPD with acute lower respiratory infection Qualified Code(s): J44.0 - Chronic obstructive pulmonary disease with (acute) lower respiratory infection (2) Asbestos-induced pleural plaque: Code(s): J92.0 - Pleural plaque with presence of asbestos Category: Medical (3) Chronic respiratory failure: Code(s): J96.10 - Chronic respiratory failure, unspecified whether with hypoxia or hypercapnia Category: Medical Qualifiers: Respiratory failure complication: hypoxia Qualified Code(s): J96.11 - Chronic respiratory failure with hypoxia (4) Hiatal hernia: Code(s): K44.9 - Diaphragmatic hernia without obstruction or gangrene Category: Medical (5) Cough: Code(s): R05.9 - Cough, unspecified Category: Medical Qualifiers: Cough type: chronic Qualified Code(s): R05.3 - Chronic cough (6) Valvular heart disease: Comment: S/P TVAR Code(s): I38 - Endocarditis, valve unspecified Category: Medical Plan Continue oxygen supplementation maintain a pulse ox above 90%, 2L/Pulse continue Anoro daily nebulized therapy once a day in the morning and also as needed short-acting beta agonist as needed, switch to Xopenex reflux diet F/U 12 months Medications: New nystatin 1 appl topical BID 60 grams 6RF 30 days Coding Level of Care Code Est Pt Level 4 (81401) Complex EM visit Add On G2211 Diagnoses Chronic obstructive pulmonary disease with acute lower respiratory infection J44.0 COPD type: COPD with acute lower respiratory infection Asbestos-induced pleural plaque J92.0 Chronic respiratory failure with hypoxia J96.11 Respiratory failure complication: hypoxia Hiatal hernia K44.9 Chronic cough R05.3 Cough type: chronic Valvular heart disease I38 Time Spent (min) 18
--- OUTSIDE RECORDS SUMMARY | 2024-10-24 16:37 | XMS_ITS | Encounter Summary ---
Author Organization [facility] Address [address] [place] [address] Care Team Providers Care Dispatcher Maintenance Service Name Role Phone Gamaliel Lemus MD Primary Care Provider [phone] Encounter Details Date Type Department Care Team (Late Contact Info) Description 06/11/[address] 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; Essential (primary) hypertension Social History Tobacco Use Types Packs/Day Years Used Date Smoking Tobacco: Former Cigarettes Q uit: 08/07/1985 Smokeless Tobacco: Never Alcohol Use Standard Drinks/Week Comments Not Currently 0 (1 standard drink = 0.6 oz pur e alcohol) Comments Unknown Sex and Gender Information Value Date Recorded Sex Assigned at Not on file Legal Sex Female 8:47 PM EST Gender Identity Not on file Sexual Orientation Not on file documented as of this encounter Plan of Treatment Upcoming Encounters Date Type Department Care Team (Late Contact Info) Description 10/25/2024 Lab [facility] - [facility] [address] [facility] [address] [place] [address] Stephanie Griffith MA Elevated INR; PFO (patent foramen ovale) 10/25/2024 Lab [facility]iology [facility] [address] [place] [address] Rich Gonzalez MD [address] [place] [address] Dr [address] [place] [address] PFO (patent foramen ovale) 05/07/2025 2:00 PM EDT Office Visit [facility] - [facility] 2 [facility] [address] [place] [address] Rich Gonzalez MD [address] [place] [address] Dr [address] [place] [address] Scheduled Orders Name Type Priority Associated Diagnoses Orde r Schedule Prothrombin time with INR Lab Routine USP (current) use of anticoagulants Essential (primary) hypertension Ordered: 06/11/2024 documented as of this encounter 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 Diagnosis 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
--- OUTSIDE RECORDS SUMMARY | 2024-10-24 16:37 | XMS_ITS | Encounter Summary ---
Author Organization [facility] Address [address] [place] [address] Care Team Providers Care Tail Puller Name Role Phone Gamaliel Lemus MD Primary Care Provider [phone] Encounter Details Date Type Department Care Team (Late Contact Info) Description 06/13/[address] 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 Social History Tobacco Use Types Packs/Day Years [...] Team (Late Contact Info) Description 10/25/2024 Lab [facility] - [facility] [address] [facility] [address] [place] [address] Stephanie Griffith MA Elevated INR; PFO (patent foramen ovale) 10/25/2024 Lab [facility]iology [facility] [address] [place] [address] Rich Gonzalez MD [address] [place] [address] Dr [address] [place] [address] PFO (patent foramen ovale) 05/07/2025 2:00 PM EDT Office Visit [facility]iology [facility] [address] [place] [address] Dr [address] [place] [address] Rich Gonzalez MD [address] [place] [address] Dr [address] [place] [address] documented as of this encounter 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 Diagnosis Essential (primary) hypertension Unspecified essential hypertension 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
--- OUTSIDE RECORDS SUMMARY | 2024-10-24 16:37 | XMS_ITS | Encounter Summary ---
Author Organization [facility] Address [address] [place] [address] Care Team Providers Care Metal Washing Machine Operator Name Role Phone Gamaliel Lemus MD Primary Care Provider [phone] Encounter Details Date Type Department Care Team (Late st Contact Info) Description 09/27/2024 [facility] - [facility] [address] [facility] [address] [place] [address] Rich Gonzalez MD [address] [place] [address] [place] [address] PFO (patent foramen ovale) Social History Tobacco Use Types Packs/Day Years [...] Encounters Date Type Department Care Team (Late st Contact Info) Description 10/25/2024 [facility] Cardiology [facility] - [facility] [address] [facility] [address] [place] [address] Stephanie Griffith MA Elevated INR; PFO (patent foramen ovale) 10/25/2024 [facility] Cardiology [facility] - [address] [place] [address] Rich Gonzalez MD [address] [place] [address] Dr [address] [place] [address] PFO (patent foramen ovale) 05/07/2025 2:00 PM EDT Office Visit [facility] Dr [address] [place] [address] Rich Gonzalez MD [address] [place] [address] Dr [address] [place] [address] documented as of this encounter 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 Diagnosis PFO (patent foramen ovale) Ostium secundum type atrial septal defect Elevated INR Abnormal coagulation profile PFO (patent foramen ovale) Ostium secundum type atrial septal defect PFO (patent foramen ovale) Ostium secundum type atrial septal defect documented in this encounter Orders Lab Orders Without Results Count Last Ordered D ate First Ordered Date PROTHROMBIN TIME WITH INR 1 09/20/2024 documented in this encounter Care Teams Metal Washing Machine Operator Relationship Specialty Start Date End Date Gamaliel Lemus MD [address] [place], [place] PCP - General Internal Medicine 08/15/24 documented as of this encounter
--- OUTSIDE RECORDS SUMMARY | 2024-10-24 16:37 | XMS_ITS | Encounter Summary ---
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; Essential [...] Team (Late Contact Info) Description 10/25/2024 Lab [facility] - [facility] [address] [facility] [address] [place] [address] Stephanie Griffith MA Elevated INR; PFO (patent foramen ovale) 10/25/2024 Lab [facility] Cardiology [facility] [address] [place] [address] Rich Gonzalez MD [address] [place] [address] Dr [address] [place] [address] PFO (patent foramen ovale) 05/07/2025 2:00 PM EDT Office Visit [facility] Cardiology [facility] [address] [place] [address] Dr [address] [place] [address] Rich Gonzalez MD [address] [place] [address] Dr [address] [place] [address] documented as of this encounter 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 Diagnosis 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
--- OUTSIDE RECORDS SUMMARY | 2024-10-24 16:37 | XMS_ITS | Encounter Summary ---
Author Organization [facility] Address [address] [place] [address] Care Team Providers Care Recordak Operator Name Role Phone Gamaliel Lemus MD Primary Care Provider [phone] Encounter Details Date Type Department Care Team (Late st Contact Info) Description 09/20/2024 [facility] - [facility] [address] [facility] [address] [place] [phone] Rich Gonzalez MD [address] [place] [address] [place] [address] PFO (patent foramen ovale) Social History Tobacco [...] Team (Late st Contact Info) Description 10/25/2024 [facility] - [facility] [address] [facility] [address] [place] [phone] Stephanie Griffith MA Elevated INR; PFO (patent foramen ovale) 10/25/2024 [facility] - [address] [place] [address] Rich Gonzalez MD [address] [place] [address] Dr [address] [place] [address] PFO (patent foramen ovale) 05/07/2025 2:00 PM EDT Office Visit [facility] [address] [place] [address] Rich Gonzalez MD [address] [place] [address] Dr Mcclendon [address] [place] [address] documented as of this encounter 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 [...] 09/20/2024 documented in this encounter Care Teams Recordak Operator Relationship Specialty Start Date End Date Gamaliel Lemus MD [address] [place], [place] PCP - General Internal Medicine 08/15/24 documented as of this encounter
--- OUTSIDE RECORDS SUMMARY | 2024-10-24 16:37 | XMS_ITS | Encounter Summary ---
Author Organization [facility] Address [address] [place] [address] Care Team Providers Care Prop And Effects Designer Name Role Phone Gamaliel Lemus MD Primary Care Provider [phone] Encounter Details Date Type Department Care Team (Latest Contact Info) Description 09/18/2024 Anticoagulation - Warfarin Visit [facility] - [facility] [address] [facility] [address] [place] [phone] Rich Gonzalez MD [address] [place] [address] [place] [address] PFO (patent foramen ovale) (Primary Dx) Social History Tobacco Use Types Packs/Day Years [...] on file documented as of this encounter Progress Notes * Stephanie Griffith MA - 09/18/2024 8:21 AM EST I notified patient. I left message with instructions and request for call back. documented in this encounter Plan of Treatment Upcoming Encounters Date Type Department Care Team (Late st Contact Info) Description 10/25/2024 Lab [facility] - [address] [place] [phone] Stephanie Griffith MA Elevated INR; PFO (patent foramen ovale) 10/25/2024 Lab [facility] - [address] [place] [phone] Rich Gonzalez MD [address] [place] [address] Dr [address] [place] [address] PFO (patent foramen ovale) 05/07/2025 2:00 PM EDT Office Visit [facility] [address] [place] [address] Dr Torres [address] [place] [phone] Rich Gonzalez MD [address] [place] [address] Dr [address] [place] [address] documented as of this encounter Procedures Procedure Name Priority Date/Time Associated Diagnosis Comments PROTHROMBIN TIME WITH INR Routine 09/17/2024 documented in this encounter Results * Prothrombin time with INR (09/17/2024) INR 2.9 Prothrombin Time POC Blood Venous blood specimen / Unknown 09/17/2024 us Historical Provider LAB BLOOD ORDERABLES Ruht l Result documented in this encounter 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 Diagnosis PFO (patent foramen ovale)- Primary Ostium secundum type atrial septal defect Elevated INR Abnormal coagulation profile PFO (patent foramen ovale) Ostium secundum type atrial septal defect PFO (patent foramen ovale) Ostium secundum type atrial septal defect documented in this encounter Care Teams Prop And Effects Designer Relationship Specialty Start Date End Date Gamaliel Lemus MD [address] [place], [place] PCP - General Internal Medicine 08/15/24 documented as of this encounter
--- OUTSIDE RECORDS SUMMARY | 2024-10-24 16:37 | XMS_ITS | Encounter Summary ---
Author Organization [facility] Address [address] [place] [address] Care Team Providers Care Grout Machine Operator Name Role Phone Gamaliel Lemus MD Primary Care Provider [phone] Reason for Visit * Reason Comments Follow-up Encounter Details Date Type Department Care Team (Latest Contact Info) Description 10/01/2024 11:10 AM EST Office [facility] [address] [facility] [address] [place] [phone] Vj Pritchett NP [address] [place] [address] Dr [address] [place] [address] S/p TAVR (transcatheter aortic valve replacement), bioprosthetic (Primary Dx); Chronic heart failure with preserved ejection fraction (CMS/HCC); Coronary artery disease involving [place] coronary artery of [place] heart without angina pectoris; Hypertension, unspecified type; Cerebrovascular accident (CVA), unspecified mechanism (CMS/HCC); Pure hypercholesterolemia Social History Tobacco Use Types Packs/Day Years [...] on file documented as of this encounter Last Filed Vital Signs Vital Sign Reading Time Taken Comments Blood Pressure 130/58 10/01/2024 11:25 AM EST Pulse 67 10/01/2024 11:25 AM EST Temperature - - Respiratory Rate - - Oxygen Saturation 98% 10/01/2024 11:25 AM EST Inhaled Oxygen Concentration - - Weight 57.6 kg (127 lb) 10/01/2024 11:25 AM EST Height 149.9 cm (4' 11 ) 10/01/2024 11:25 AM EST Body Mass Index 25.65 10/01/2024 11:25 AM EST documented in this encounter Progress Notes * Vj Pritchett NP - 10/01/2024 11:10 AM ESTAssociated Problem(s): S/p TAVR (transcatheter aortic valve replacement), bioprosthetic Successful TAVR using #23 Mandujano BRENDA 3 valve on 08/05/24 . No complications. She has had symptomatic improvement following her TAVR. She continues to have shortness of breath in the setting of her COPD. Her valve is working well on exam and by recent echocardiogram. Instructed patient about theneed for prophylactic antibiotics prior to dental work. Continue with warfarin. Orders: ECG 12 lead * Vj Pritchett NP - 10/01/2024 11:10 AM ESTAssociated Problem(s): (HFpEF) heart failure with preserved ejection fraction (CMS/HCC) Echocardiogram from September 2024 showed normal LV systolic function LVEF 60- 65%. She appears compensated on exam. Continue with furosemide. Consider adding SGLT2 inhibitor. We reviewed heart failuremanagement including low-sodium diet, symptom surveillance, daily weights and medication compliance. * Vj Pritchett NP - 10/01/2024 11:10 AM ESTAssociated Problem(s): CAD (coronary artery disease) Coronary CTA with mild to moderate disease. Continue with diltiazem, warfarin and rosuvastatin. We discussed risk reduction through lifestyle choices including healthy diet, routine exercise and weight management. * Vj Pritchett NP - 10/01/2024 11:10 AM ESTAssociated Problem(s): HTN (hypertension) Controlled. Continue with diltiazem and furosemide. * Vj Pritchett NP - 10/01/2024 11:10 AM ESTAssociated Problem(s): Cerebrovascular accident (CVA) (CMS/HCC) No further neurologic symptoms. Continue with diltiazem, warfarin and rosuvastatin. We discussed risk reduction through lifestyle choices including healthy diet, routine exercise and weight management. * Vj Pritchett NP - 10/01/2024 11:10 AM ESTAssociated Problem(s): Pure hypercholesterolemia July 2023 - LDL 89. Continue with rosuvastatin. Consider doubling to 20mg daily given LDL not at goal of 70. * Vj Pritchett NP - 10/01/2024 11:10 AM EST Images from the original note were not included. [facility] PRIMARY SPECIAL EDUCATION SUPERINTENDENT: Rich Gonzalez MD PCP: Gamaliel Lemus MD HPI: Mrs. Sanders is an 83-year-old female with a past medical history of patent foramen ovale (PFO) and cerebrovascular accident (CVA) on warfarin therapy, nonobstructive coronary artery disease, chronic obstructive pulmonary disease (COPD) on 2 L of chronic oxygen supplement therapy, and aortic stenosis. On August 05, 2024 she underwent a successful transcatheter aortic valve replacement using a #23 Mandujano BRENDA [address] Michelle at [facility]. There were no post operative complications and she was discharged on warfarin monotherapy. She reports feeling more energy and less shortness of breath since her TAVR. She is thankful for having the procedure and that it went well. Her residual shortness of breath is only with exertion andthat which she attributes to her COPD. She continues to use oxygen. No chest pain, palpitations, lightheadedness, presyncope or syncope. No orthopnea, paroxysmal nocturnal dyspnea, abdominal distention, cough or abrupt increases in weight. The patient reports adherence with their medications. ACTIVE MEDICATIONS: Outpatient Medications Marked as Taking for the 10/01/24 encounter (Office Visit) with Vj Pritchett NP Medication Sig Dispense Refill acetaminophen (TYLENOL 8 HOUR) 650 mg 8 hr tablet Take 1 tablet (650 mg total) by mouth 2 (two) times a day. Do not crush, chew, or split. albuterol 2.5 mg /3 mL (0.083 %) nebulizer solution Take 1 Vial by nebulization every 4 hours as needed. calcium carbonate-vitamin D3 600 mg-25 mcg (1,000 unit) capsule Take 1 Tablet by mouth daily. dilTIAZem (CARDIZEM) 30 mg immediate release tablet Take 1 Tablet by mouth 2 times daily. escitalopram (LEXAPRO) 10 mg tablet Take 10 mg by mouth daily. ferrous sulfate 325 mg (65 mg iron) EC tablet Take 1 tablet (325 mg total) by mouth 1 (one) time each day with breakfast. Do not crush, chew, or split. furosemide (LASIX) 20 mg tablet Take 1 Tablet by mouth daily. LORazepam (ATIVAN) 0.5 mg tablet Take 0.5 mg by mouth every 6 hours as needed. miscellaneous medical supply misc Oxygen Historical (HISTORICAL OXYGEN) Inhale 2 L into the lungs daily. multivit-min/iron/folic acid/K (ADULTS MULTIVITAMIN ORAL) Multiple Vitamins- Minerals (MULTIVITAMIN ADULT) Tab Take by mouth daily. omeprazole (PriLOSEC) [address] capsule Take 1 Capsule by mouth 2 times daily. potassium chloride (KLOR-CON M20) 20 mEq CR tablet Take 1 tablet (20 mEq total) by mouth 1 (one) time each day. Tablet may be swallowed whole (do not crush/chew/suck on) OR broken in half and each half swallowed separately OR dissolved (whole tablet) in ~4 ounces of water (allow ~2 minutes to dissolve, stir well and administer immediately). rosuvastatin (CRESTOR) 10 mg tablet Take 10 mg by mouth daily. umeclidinium-vilanteroL (ANORO ELLIPTA) 62.5-25 mcg/actuation inhaler Inhale into the lungs. warfarin (COUMADIN) 1 mg tablet TAKE 1-2 TABLETS BY MOUTH DAILY DIRECTED BY PVCA 180 tablet 3 zolpidem (AMBIEN) 5 mg tablet Take 1 Tablet by mouth at bedtime. PAST MEDICAL HISTORY: Patient Active Problem List Diagnosis Date Noted Date Diagnosed Cerebrovascular accident (CVA) ([facility]) 08/16/20242014 - warfarin interrupted prior to an elective procedure and she suffered a cerebral stroke S/p TAVR (transcatheter aortic valve replacement), bioprosthetic 08/15/2024 Successful TAVR using a #23 Mandujano BRENDA 3 valve on 08/05/[address] Michelle. No complications. (HFpEF) heart failure with preserved ejection fraction ([facility]) 01/03/2024 RV dysfunction in setting of COPD June 2022 - echocardiogram showed preserved left ventricular systolic function LVEF 55 to 60% with normal regional wall motion, discrete upper septal thickening of 2.2 cm, normal biatrial size, normal RV systolic function, moderate aortic stenosis April 2024 - echocardiogram showed low normal left ventricular systolic function LVEF 50-55%, normal regional wall motion, reduced right ventricular global systolic function, moderate-severe aortic stenosis Elevated INR 01/03/2024 CAD (coronary artery disease) 07/19/2023 - coronary CTA showed mild to moderate nonobstructive CAD with CT FFR analysis was normal No preTAVR catheterization done Palpitations 07/19/2023 Holter monitor showed a normal sinus rhythm, rare PACs, and occasional PVCs. She also had a brief episode of nonconducted P waves. April to May 2024 - 30-day ROCT showed sinus rhythm, occasional PACs, occasional PVCs and no sustained arrhythmias with 3 triggered events showing sinus rhythm at that time Fall 06/07/2022 PFO (patent foramen ovale) 05/26/2021 diagnosed in 2006 at which time started on warfarin HTN (hypertension) 05/26/2021 Dyspnea 12/16/2020 Obstructive sleep apnea 11/16/2018 [facility] Home Polysomnogram: Date 11/14/2018; Wt 177#; EARNEST 18, AI 6; HI 12; Unclassified apneas 1; Obstructive apneas 32; Central apneas 13; Mixed apneas 2; hypopneas 92; average oxygen saturation 94% (lowest 82% with saturations <88% for 5% or more of study) - Obstructive Sleep Apnea - moderate; mostly hypopneas with obstructive apneas and some central apneas; with sleep related hypoventilation by 2019 home polysomnogram. Chronic respiratory failure ([facility]) 08/08/2017 GERD (gastroesophageal reflux disease) 08/08/2017 Hiatal hernia 08/08/2017 S/p fundoplication Insomnia 08/08/2017 Pure hypercholesterolemia 08/08/2017 COPD (chronic obstructive pulmonary disease) ([facility]) 07/18/2017 Resolved Problems Diagnosis Date Diagnosed Aortic stenosis ALLERGIES: Allergies Allergen Reactions Clopidogrel Iodinated Contrast Media Diarrhea Nsaids (Non-Steroidal Anti-Inflammatory Drug) Penicillins SOCIAL HISTORY: Social History Tobacco Use Smoking status: Former Current packs/day: 0.00 Types: Cigarettes Quit date: 08/07/1985 Years since quittin.1 Smokeless tobacco: Never Substance Use Topics Alcohol use: Not Currently PHYSICAL EXAM: Vitals: 10/01/24 1125 BP: 130/58 BP Location: Left arm Patient Position: Sitting BP Cuff Size: Adult Pulse: 67 SpO2: 98% Weight: 57.6 kg (127 lb) Height: 1.499 m (59 ) Constitutional: General: She is not in acute distress. Appearance: Normal appearance. HENT: Head: Normocephalic and atraumatic. Right Ear: External ear normal. Left Ear: External ear normal. Nose: Nose normal. Mouth/Throat: Mouth: Mucous membranes are moist. Pharynx: No oropharyngeal exudate. Eyes: General: No scleral icterus. Conjunctiva/sclera: Conjunctivae normal. Pupils: Pupils are equal, round, and reactive to light. Neck: Vascular: No carotid bruit, hepatojugular reflux or JVD. Cardiovascular: Rate and Rhythm: Normal rate and regular rhythm. Pulses: Carotid pulses are 2+ on the right side and 2+ on the left side. Radial pulses are 2+ on the right side and 2+ on the left side. Dorsalis pedis pulses are 2+ on the right side and 2+ on the left side. Posterior tibial pulses are 2+ on the right side and 2+ on the left side. Heart sounds: No murmur heard. No friction rub. No gallop. Pulmonary: Effort: Pulmonary effort is normal. Breath sounds: Decreased air movement present. Comments: On supplemental oxygen Chest: Chest wall: No tenderness. Abdominal: General: Bowel sounds are normal. There is no distension. Palpations: Abdomen is soft. There is no hepatomegaly or pulsatile mass. Tenderness: There is no abdominal tenderness. Musculoskeletal: Cervical back: Neck supple. Comments: Procedure sites healed Lymphadenopathy: Cervical: No cervical adenopathy. Skin: General: Skin is warm and dry. Nails: There is no clubbing. Neurological: Mental Status: She is alert and oriented to person, place, and time. Gait: Gait is intact. Psychiatric: Mood and Affect: Mood normal. Behavior: Behavior normal. Behavior is cooperative. EKG: Encounter Date: 10/01/24 ECG 12 lead Result Value Ventricular Rate ECG 57 Atrial Rate 57 P-R Interval 208 QRS Duration 84 Q-T Interval 402 QTc 391 P Wave [place] 62 R [place] 43 T [place] 52 ECG Interpretation Sinus bradycardia with occasional Premature ventricular complexes Abnormal ECG When compared with ECG of 22-NOV-2023 14:48, Premature ventricular complexes are now Present Vent. rate has decreased BY 37 BPM Confirmed by JUAN OSBORNE ([id number]) on 10/01/2024 4:02:52 PM *Note: Due to a large number of results and/or encounters for the requested time period, some results have not been displayed. A complete set of results can be found in Results Review. TESTING: Labs available were reviewed. ASSESSMENT/PLAN: Assessment & Plan S/p TAVR (transcatheter aortic valve replacement), bioprosthetic Successful TAVR using #23 Mandujano BRENDA 3 valve on 08/05/24 . No complications. She has had symptomatic improvement following her TAVR. She continues to have shortness of breath in the setting of her COPD. Her valve is working well on exam and by recent echocardiogram. Instructed patient about theneed for prophylactic antibiotics prior to dental work. Continue with warfarin. Orders: ECG 12 lead Chronic heart failure with preserved ejection fraction (CMS/HCC) Echocardiogram from September 2024 showed normal LV systolic function LVEF 60- 65%. She appears compensated on exam. Continue with furosemide. Consider adding SGLT2 inhibitor. We reviewed heart failuremanagement including low-sodium diet, symptom surveillance, daily weights and medication compliance. Coronary artery disease involving [place] coronary artery of [place] heart without angina pectoris Coronary CTA with mild to moderate disease. Continue with diltiazem, warfarin and rosuvastatin. We discussed risk reduction through lifestyle choices including healthy diet, routine exercise and weight management. Hypertension, unspecified type Controlled. Continue with diltiazem and furosemide. Cerebrovascular accident (CVA), unspecified mechanism (CMS/HCC) No further neurologic symptoms. Continue with diltiazem, warfarin and rosuvastatin. We discussed risk reduction through lifestyle choices including healthy diet, routine exercise and weight management. Pure hypercholesterolemia July 2023 - LDL 89. Continue with rosuvastatin. Consider doubling to 20mg daily given LDL not at goal of 70. Thank you for allowing us to participate in the care of this patient. The patient will follow up insix months with [facility]. As per AHA guidelines and previously established plan of care by Dr. Rich Gonzalez MD, we discussed the following today: 1. S/p TAVR (transcatheter aortic valve replacement), bioprosthetic 2. Chronic heart failure with preserved ejection fraction (CMS/HCC) 3. Coronary artery disease involving [place] coronary artery of [place] heart without angina pectoris 4. Hypertension, unspecified type 5. Cerebrovascular accident (CVA), unspecified mechanism (CMS/HCC) 6. Pure hypercholesterolemia [facility] Cosigned by Juan Osborne MD at 10/03/2024 8:58 AM EST documented in this encounter Plan of Treatment Upcoming Encounters Date Type Department Care Team (Late st Contact Info) Description 10/25/2024 Lab [facility] - [address] [place] [address] Stephanie Griffith MA Elevated INR; PFO (patent foramen ovale) 10/25/2024 Lab [facility] Cardiology [facility] - [address] [place] [address] Rich Gonzalez MD [address] [place] [address] Dr Mcclendon [address] [place] [address] PFO (patent foramen ovale) 05/07/2025 2:00 PM EDT Office Visit [facility] 2 [facility] [address] [place] [address] Rich Gonzalez MD [address] [place] [address] Dr Mccl[address]on [address] [place] [address] documented as of this encounter Procedures Procedure Name Priority Date/Time Associated Diagnosis Comments ECG 12-LEAD Routine 10/01/2024 11:41 AM EST S/p TAVR (transcatheter aortic valve replacement), bioprosthetic documented in this encounter Results * ECG 12 lead (10/01/2024 11:41 AM EST) Ventricular Rate ECG 57 BPM GEMUSE Atrial Rate 57 BPM GEMUSE P-R Interval 208 ms GEMUSE QRS Duration 84 ms GEMUSE Q-T Interval 402 ms GEMUSE QTc 391 ms GEMUSE P Wave [place] 62 degrees GEMUSE R [place] 43 degrees GEMUSE T [place] 52 degrees GEMUSE ECG Interpretation Sinus bradycardia with occasional Premature ventricular complexes Abnormal ECG When compared with ECG of 22-NOV-2023 14:48, Premature ventricular complexes are now Present Vent. rate has decreased BY ??37 BPM Confirmed by JUAN OSBORNE ([id number]) on 10/01/2024 4:02:52 PM GEMUSE 10/01/2024 11:4 1 AM EST 10/01/2024 4:02 PM EST us Vj Pritchett NP ECG ORDERABLES Final Resul t GEMUSE documented in this encounter 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 Diagnosis S/p TAVR (transcatheter aortic valve replacement), bioprosthetic- Primary Chronic heart failure with preserved ejection fraction (CMS/HCC) Coronary artery disease involving [place] coronary artery of [place] heart without angina pectoris Hypertension, unspecified type Cerebrovascular accident (CVA), unspecified mechanism (CMS/HCC) Pure hypercholesterolemia Elevated INR Abnormal coagulation profile PFO (patent foramen ovale) Ostium secundum type atrial septal defect PFO (patent foramen ovale) Ostium secundum type atrial septal defect documented in this encounter Discontinued Medications Medication Sig Discontinue Reason Start Date End Da te enoxaparin (LOVENOX) 60 mg/0.6 mL syringe INJECT 0.6 ML (60 MG TOTAL) UNDER THE SKIN EVERY 12 (TWELVE) HOURS. Therapy completed 09/17/2024 10/01/2024 documented as of this encounter Historical Medications * This list may reflect changes made after this encounter. ferrous sulfate 325 mg (65 mg iron) EC tablet Take 1 tablet (325 mg total) by mouth 1 (one) time each day with breakfast. Do not crush, chew, or split. potassium chloride (KLOR-CON M20) 20 mEq CR tablet Take 1 tablet (20 mEq total) by mouth 1 (one) time each day. Tablet may be swallowed whole (do not crush/chew/suck on) OR broken in half and each half swallowed separately OR dissolved (whole tablet) in ~4 ounces of water (allow ~2 minutes to dissolve, stir well and administer immediately). added in this encounter Care Teams Grout Machine Operator Relationship Specialty Start Date End Date Gamaliel Lemus MD [address] PCP - General Internal Medicine 08/15/24 documented as of this encounter
--- OUTSIDE RECORDS SUMMARY | 2024-10-24 16:37 | XMS_ITS | Encounter Summary ---
Author Organization [facility] Address [address] [place] [address] Care Team Providers Care Hearing Aid Technician Name Role Phone Gamaliel Lemus MD Primary Care Provider [phone] Encounter Details Date Type Department Care Team (Latest Contact Info) Description 09/16/2024 Anticoagulation - Warfarin Visit [facility] - [facility] [address] [facility] [address] [place] [address] Rich Gonzalez MD [address] [place] [address] [place] [address] PFO (patent foramen ovale) (Primary Dx) Social [...] as of this encounter Progress Notes * Jennifer Griffith MA - 09/16/2024 8:08 AM ESTAddended by: JENNIFER GRIFFITH on: 09/17/2024 03:10 PM Modules accepted: Orders * Jennifer Griffith MA - 09/16/2024 8:08 AM EST Per [place] patient to take Coumadin and Lovenox and recheck INR tomorrow 09/17/24 * Katerina Urena MA - 09/16/2024 8:08 AM EST Patient went late afternoon to [facility] to have INR done, they did a BMP and CBC not PT INR. They stated the order was not in their system. A second order was sent, still not showing up on Lab's end.I spoke with Nichole at [facility], was explaining the issue and was hung up on. My Lead called back requesting the same info, they then stated they did draw PT INR. This was false. Jennifer called the patient, asking her to please go to a [facility] to ensure this doesn't happen in the future. * Jennifer Griffith MA - 09/16/2024 8:08 AM EST I called patient for an update on her lab draw for INR. She went back to the lab today and they arestill stating they are not seeing our order for the INR. I did tell her I could fax it to them. Shesaid that she is going to test at home and call us back with a number. I did not call in more Lovenox until we got an INR. documented in this encounter Plan of Treatment Upcoming Encounters Date Type Department Care Team (Late st Contact Info) Description 10/25/2024 Lab [facility] [address] [facility] [address] [place] [address] Jennifer Griffith MA Elevated INR; PFO (patent foramen ovale) 10/25/2024 Lab [facility] - [facility] [address] [place] [address] Rich Gonzalez MD [address] [place] [address] Dr Mccl[address]on [address] [place] [address] PFO (patent foramen ovale) 05/07/2025 2:00 PM EDT Office Visit [facility]iology [facility] [address] [place] [address] [place] [address] Rich Gonzalez MD [address] [place] [address] Dr Mcclendon [address] [place] [address] Scheduled Orders Name Type Priority Associated Diagnoses Orde r Schedule Prothrombin time with INR Lab Routine PFO (patent foramen ovale) Once a week for 52 Occurrences starting 09/17/2024 until 09/17/2025, 1 completed documented as of this encounter Procedures Procedure Name Priority Date/Time Associated Diagnosis Comments PROTHROMBIN TIME WITH INR Routine 09/17/2024 4:04 PM EST PFO (patent foramen ovale) documented in this encounter Results * (ABNORMAL) Prothrombin time with INR (09/17/2024 4:04 PM EST) International Normalized Ratio (INR) 2.9(H) 0.9 - 1.2 [facility] 1 Comment: Reference interval is for non-anticoagulated patients. Suggested INR therapeutic range for Vitamin K antagonist therapy: ?? Standard Dose (moderate intensity ?therapeutic range): ? 2.0 - 3.0 ?? Higher intensity therapeutic range ? 2.5 - 3.5 Prothrombin Time 29.2(H) 9.1 - 12.0 sec [facility] 1 Blood Venous blood specimen / Unknown 09/17/2024 4:04 PM EST 09/17/2024 Narrative [facility] 1 - 09/18/2024 4:05 AM EST Performed at: ??01 - [facility] [address] ??[id number] Rotary Derrick Operator: Charity Mccormack MD, Phone: ??[phone] us Luci Ortiz NURSE ASSESSOR LAB BLOOD ORDERABLES Final R esult [facility] 1 documented in this encounter 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 Diagnosis PFO (patent foramen ovale)- Primary Ostium secundum type atrial septal defect Elevated INR Abnormal coagulation profile PFO (patent foramen ovale) Ostium secundum type atrial septal defect PFO (patent foramen ovale) Ostium secundum type atrial septal defect documented in this encounter Care Teams Hearing Aid Technician Relationship Specialty Start Date End Date Gamaliel Lemus MD [address] PCP - General Internal Medicine 08/15/24 documented as of this encounter
--- OUTSIDE RECORDS SUMMARY | 2024-10-24 16:37 | XMS_ITS | Encounter Summary ---
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; Essential (primary) hypertension [...] Team (Late Contact Info) Description 10/25/2024 Lab [facility] - [facility] [address] [facility] [address] [place] [address] Stephanie Griffith MA Elevated INR; PFO (patent foramen ovale) 10/25/2024 Lab [facility] Cardiology [facility] [address] [place] [phone] Rich Gonzalez MD [address] [place] [address] Dr [address]clendon [address] [place] [address] PFO (patent foramen ovale) 05/07/2025 2:00 PM EDT Office Visit [facility] Cardiology [facility] [address] [place] [address] Rich Gonzalez MD [address] [place] [address] Dr Mcclendon [address] [place] [address] documented as of this encounter Procedures Procedure Name Priority Date/Time Associated Diagnosis Comments TRAVEL PHLEBOTOMY FEE Routine 06/10/2024 6:38 AM EST [facility] (current) use of anticoagulants Essential (primary) hypertension PROTHROMBIN TIME WITH INR Routine 06/10/2024 6:38 AM EST [facility] (current) use of anticoagulants Essential (primary) hypertension documented in this encounter Results * Travel phlebotomy fee (06/10/2024 6:38 AM EST) [facility] TRAVEL PHLEBOTOMY FEE Completed 06/10/2024 10:[address] [facility] Blood Venous blood specimen / Unknown Venipuncture / Unknown 06/10/2024 6:38 AM EST 06/10/2024 9:40 AM EST us Leelee Ramos MD LAB BLOOD ORDERABLES Fin al Result [facility] [address] [place] [address], * (ABNORMAL) Prothrombin time with INR (06/10/2024 6:38 AM EST) [facility] 22.8(H) 10.6 - 13.9 sec LAB COAGULATION METHOD 06/10/2024 11:[address] [facility] INR 1.8 LAB COAGULATION METHOD 06/10/2024 11:[address] [facility] Blood Venous blood specimen / Unknown Venipuncture / Unknown 06/10/2024 6:38 AM EST 06/10/2024 9:40 AM EST us Leelee Ramos MD LAB BLOOD ORDERABLES Fin al Result [facility] [address] [place] [address], documented in this encounter 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 Diagnosis [facility] (current) use of anticoagulants Long-term (current) use of anticoagulants Essential (primary) hypertension Unspecified essential hypertension Elevated INR Abnormal coagulation profile PFO (patent foramen ovale) Ostium secundum type atrial septal defect PFO (patent foramen ovale) Ostium secundum type atrial septal defect documented in this encounter Care Teams New Grad Rn Relationship Specialty Start Date End Date Gamaliel Lemus MD [address] [place] [address] PCP - General Internal Medicine 08/15/24 documented as of this encounter
--- OUTSIDE RECORDS SUMMARY | 2024-10-24 16:37 | XMS_ITS | Encounter Summary ---
Author Organization [facility] Address [address] [place] [address] Care Team Providers Care Cyber Policy And Strategy Planner Name Role Phone Gamaliel Lemus MD Primary Care Provider [phone] Encounter Details Date Type Department Care Team (Late Contact Info) Description 06/08/[address] 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; Emphysema, unspecified (CMS/HCC); Essential (primary) hypertension Social History Tobacco Use [...] Team (Late Contact Info) Description 10/25/2024 Lab [facility] - [facility] [address] [facility] [address] [place] [address] Stephanie Griffith [place] Elevated INR; PFO (patent foramen ovale) 10/25/2024 Lab [facility] Cardiology [facility] [address] [place] [address] Rich Gonzalez MD [address] [place] [address] Dr Mcclendon [address] [place] [address] PFO (patent foramen ovale) 05/07/2025 2:00 PM EDT Office Visit [facility] Cardiology [facility] [address] [place] [address] Rich Gonzalez MD [address] [place] [address] Dr Mcclendon [address] [place] [address] documented as of this encounter Procedures Procedure Name Priority Date/Time Associated Diagnosis Comments TRAVEL PHLEBOTOMY FEE Routine 06/11/2024 6:52 AM EST alf (current) use of anticoagulants Emphysema, unspecified (CMS/HCC) Essential (primary) hypertension COMPLETE BLOOD COUNT Routine 06/11/2024 6:52 AM EST 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 Emphysema, unspecified (CMS/HCC) Essential (primary) hypertension ASPARTATE AMINOTRANSFERASE Routine 06/11/2024 6:52 AM EST 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 Emphysema, unspecified (CMS/HCC) Essential (primary) hypertension RENAL FUNCTION PANEL Routine 06/11/2024 6:52 AM EST alf (current) use of anticoagulants Emphysema, unspecified (CMS/HCC) Essential (primary) hypertension COMPREHENSIVE METABOLIC PANEL Routine 06/11/2024 6:52 AM EST 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 Emphysema, unspecified (CMS/HCC) Essential (primary) hypertension documented in this encounter Results * Travel phlebotomy fee (06/11/2024 6:52 AM EST) [facility] TRAVEL PHLEBOTOMY FEE Completed 06/12/2024 3:01 PM EST [facility] Blood Venous blood specimen / Unknown 06/11/2024 6:52 AM EST 06/12/2024 2:09 PM EST Leelee Ramos MD LAB BLOOD ORDERABLES Fin al Result Performing Organization Address City/[facility]/ZIP Co de Phone Number [facility] [address] [place] [address], [place] [phone] * Aspartate aminotransferase (06/11/2024 6:52 AM EST) Pathologist [facility] AST (SGOT) 17 10 - 42 unit/L LAB CHEMISTRY METHOD 06/11/2024 10:22 AM [facility] Blood Venous blood specimen / Unknown Venipuncture / Unknown 06/11/2024 6:52 AM EST 06/11/2024 10:22 AM EST Leelee Ramos MD LAB BLOOD ORDERABLES Fin al Result Performing Organization Address [facility]/ZIP Co de Phone Number [facility] [address] [place] [address], [place] [phone] * (ABNORMAL) Renal function panel (06/11/2024 6:52 AM EST) Pathologist [facility] Sodium 139 133 - 145 mmol/L LAB CHEMISTRY METHOD 06/11/2024 10:22 AM [facility] Potassium 4.0 3.5 - 5.5 mmol/L LAB CHEMISTRY METHOD 06/11/2024 10:22 AM [facility] Chloride 106 96 - 110 mmol/L LAB CHEMISTRY METHOD 06/11/2024 10:22 AM [facility] CO2 28 21 - 32 mmol/L LAB CHEMISTRY METHOD 06/11/2024 10:22 AM [facility] Anion Gap 5 3 - 11 LAB CHEMISTRY METHOD 06/11/2024 10:22 AM [facility] Glucose 94 70 - 100 mg/dL LAB CHEMISTRY METHOD 06/11/2024 10:22 AM [facility] BUN 9 5 - 25 mg/dL LAB CHEMISTRY METHOD 06/11/2024 10:22 AM [facility] Creatinine 0.51 0.50 - 1.10 mg/dL LAB CHEMISTRY METHOD 06/11/2024 10:22 AM [facility] eGFR 94 >=60 mL/min/1. 73m2 LAB CHEMISTRY METHOD 06/11/2024 10:22 AM [facility] Comment: Calculation based on the??Chronic Kidney Disease Epidemiology Collaboration (CKD-EPI) equation refit??without adjustment for race. Calculation based on the??Chronic Kidney Disease Epidemiology Collaboration (CKD-EPI) equation refit??without adjustment for race. BUN/Creatinine Ratio 17.6 LAB CHEMISTRY METHOD 06/11/2024 10:22 AM [facility] Albumin 2.6(L) 3.2 - 5.0 g/dL LAB CHEMISTRY METHOD 06/11/2024 10:22 AM [facility] Calcium 8.4(L) 8.5 - 10.5 mg/dL LAB CHEMISTRY METHOD 06/11/2024 10:22 AM [facility] Phosphorus 4.0 2.5 - 4.5 mg/dL LAB CHEMISTRY METHOD 06/11/2024 10:22 AM [facility] Blood Venous blood specimen / Unknown Venipuncture / Unknown 06/11/2024 6:52 AM EST 06/11/2024 10:22 AM EST us Leelee Ramos MD LAB BLOOD ORDERABLES Fin al Result [facility] [address] [place] [address], * (ABNORMAL) Comprehensive metabolic panel (06/11/2024 6:52 AM EST) Sodium 139 133 - 145 mmol/L LAB CHEMISTRY METHOD 06/11/2024 10:22 AM [facility] Potassium 4.0 3.5 - 5.5 mmol/L LAB CHEMISTRY METHOD 06/11/2024 10:22 AM [facility] Chloride 106 96 - 110 mmol/L LAB CHEMISTRY METHOD 06/11/2024 10:22 AM [facility] CO2 28 21 - 32 mmol/L LAB CHEMISTRY METHOD 06/11/2024 10:22 AM [facility] Anion Gap 5 3 - 11 LAB CHEMISTRY METHOD 06/11/2024 10:22 AM [facility] Glucose 94 70 - 100 mg/dL LAB CHEMISTRY METHOD 06/11/2024 10:22 AM [facility] BUN 9 5 - 25 mg/dL LAB CHEMISTRY METHOD 06/11/2024 10:22 AM [facility] Creatinine 0.51 0.50 - 1.10 mg/dL LAB CHEMISTRY METHOD 06/11/2024 10:22 AM [facility] eGFR 94 >=60 mL/min/1. 73m2 LAB CHEMISTRY METHOD 06/11/2024 10:22 AM [facility] Comment:Calculation based on the??Chronic Kidney Disease Epidemiology Collaboration (CKD-EPI) equation refit??without adjustment for race. BUN/Creatinine Ratio 17.6 LAB CHEMISTRY METHOD 06/11/2024 10:22 AM [facility] Calcium 8.4(L) 8.5 - 10.5 mg/dL LAB CHEMISTRY METHOD 06/11/2024 10:22 AM [facility] AST (SGOT) 17 10 - 42 unit/L LAB CHEMISTRY METHOD 06/11/2024 10:22 AM [facility] ALT (SGPT) 13 10 - 60 unit/L LAB CHEMISTRY METHOD 06/11/2024 10:22 AM [facility] Alkaline Phosphatase 130(H) 42 - 121 unit/L LAB CHEMISTRY METHOD 06/11/2024 10:22 AM EST [facility] Total Protein 5.0(L) 6.0 - 8.0 g/dL LAB CHEMISTRY METHOD 06/11/2024 10:22 AM [facility] Albumin 2.6(L) 3.2 - 5.0 g/dL LAB CHEMISTRY METHOD 06/11/2024 10:22 AM [facility] Total Bilirubin 0.2 0.0 - 1.4 mg/dL LAB CHEMISTRY METHOD 06/11/2024 10:22 AM [facility] Blood Venous blood specimen / Unknown Venipuncture / Unknown 06/11/2024 6:52 AM EST 06/11/2024 10:22 AM EST us Leelee Ramos MD LAB BLOOD ORDERABLES Fin al Result [facility] [address] [place] [address], * (ABNORMAL) Complete blood count (06/11/2024 6:52 AM EST) WBC 5.4 4.8 - 10.8 K/mcL LAB HEMETOLOGY METHOD 06/11/2024 10:04 AM [facility] RBC 2.60(L) 3.80 - 4.80 M/mcL LAB HEMETOLOGY METHOD 06/11/2024 10:04 AM [facility] Hemoglobin 7.7(L) 11.5 - 16.0 g/dL LAB HEMETOLOGY METHOD 06/11/2024 10:04 AM [facility] Hematocrit 25.4(L) 35.0 - 47.0 % LAB HEMETOLOGY METHOD 06/11/2024 10:04 AM [facility] MCV 98.4(H) 79.0 - 98.0 FL LAB HEMETOLOGY METHOD 06/11/2024 10:04 AM [facility] MCH 29.8 27.0 - 32.0 pcg LAB HEMETOLOGY METHOD 06/11/2024 10:04 AM [facility] MCHC 30.3(L) 32.0 - 37.0 g/dL LAB HEMETOLOGY METHOD 06/11/2024 10:04 AM [facility] RDW 15.4(H) 11.0 - 15.0 % LAB HEMETOLOGY METHOD 06/11/2024 10:04 AM [facility] Platelets 275 130 - 400 K/mcL LAB HEMETOLOGY METHOD 06/11/2024 10:04 AM [facility] MPV 8.8 7.0 - 11.0 FL LAB HEMETOLOGY METHOD 06/11/2024 10:04 AM [facility] NRBC 0.0 <1.0 % LAB HEMETOLOGY METHOD 06/11/2024 10:04 AM [facility] NRBC Absolute 0.00 <0.10 K/mcL LAB HEMETOLOGY METHOD 06/11/2024 10:04 AM [facility] Blood Venous blood specimen / Unknown Venipuncture / Unknown 06/11/2024 6:52 AM EST 06/11/2024 10:03 AM EST us Leelee Ramos MD LAB BLOOD ORDERABLES Fin al Result [facility] [address] [place] [address], documented in this encounter 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
--- OUTSIDE RECORDS SUMMARY | 2024-10-24 16:37 | XMS_ITS | Encounter Summary ---
Author Organization [facility] Address [address] [place] [address] Care Team Providers Care Doughnut Fryer Name Role Phone Gamaliel Lemus MD Primary Care Provider [phone] Encounter Details Date Type Department Care Team (Latest Contact Info) Description 09/25/2024 Anticoagulation - Warfarin Visit [facility] [place] [address] [place] [phone] Nathan-Rich Ontiveros MD [address] [place] [address] Dr Mccl[address]on [address] [place], [place] [phone] PFO (patent foramen ovale) (Primary Dx) Social [...] as of this encounter Progress Notes * Padilla Acuna MA - 09/25/2024 2:49 PM EST Patient aware of instructions documented in this encounter Plan of Treatment Upcoming Encounters Date Type Department Care Team (Late st Contact Info) Description 10/25/2024 Lab [facility] [address] [place] [phone] Stephanie Griffith MA Elevated INR; PFO (patent foramen ovale) 10/25/2024 Lab [facility] - [address] [place] [address] Rich Gonzalez MD [address] [place] [address] Dr Mcclendon [address] [place] [address] PFO (patent foramen ovale) 05/07/2025 2:00 PM EDT Office Visit [facility] [address] [place] [address] Dr Torres [address] [place] [phone] Rich Gonzalez MD [address] [place] [address] Dr Mcclendon [address] [place] [address] documented as of this encounter Procedures Procedure Name Priority Date/Time Associated Diagnosis Comments PROTHROMBIN TIME WITH INR Routine 09/25/2024 documented in this encounter Results * Prothrombin time with INR (09/25/2024) INR 2.6 Prothrombin Time POC Blood Venous blood specimen / Unknown 09/25/2024 us Historical Provider LAB BLOOD ORDERABLES Ruth l Result documented in this encounter 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 Diagnosis PFO (patent foramen ovale)- Primary Ostium secundum type atrial septal defect Elevated INR Abnormal coagulation profile PFO (patent foramen ovale) Ostium secundum type atrial septal defect PFO (patent foramen ovale) Ostium secundum type atrial septal defect documented in this encounter Care Teams Doughnut Fryer Relationship Specialty Start Date End Date Gamaliel Lemus MD [address] [place] [address] [place], [place] PCP - General Internal Medicine 08/15/24 documented as of this encounter
--- OUTSIDE RECORDS SUMMARY | 2024-10-24 16:37 | XMS_ITS | Encounter Summary ---
Author Organization [facility] Address [address] [place] [address] Care Team Providers Care Utility Service Worker Name Role Phone Gamaliel Lemus MD Primary Care Provider [phone] Encounter Details Date Type Department Care Team (Latest Contact Info) Description 09/18/2024 Anticoagulation - Warfarin Visit [facility]iology [facility] [address] [facility] [address] [place] [address] Rich Gonzalez MD [address] [place] [address] [place] [address] PFO (patent foramen ovale) (Primary Dx) Social [...] (Late st Contact Info) Description 10/25/2024 Lab [facility] [address] [facility] [address] [place] [address] Stephanie Griffith [place] Elevated INR; PFO (patent foramen ovale) 10/25/2024 Lab [facility] [address] [place] [address] Rich Gonzalez MD [address] [place] [address] Dr Mccl[address]on [address] [place] [address] PFO (patent foramen ovale) 05/07/2025 2:00 PM EDT Office Visit [facility] Cardiology [facility] [address] [place] [address] Dr Brian [address] [place] [address] Rich Gonzalez MD [address] [place] [address] Dr Mccl[address]on [address] [place] [address] documented as of this encounter 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 Diagnosis PFO (patent foramen ovale)- Primary Ostium secundum type atrial septal defect Elevated INR Abnormal coagulation profile PFO (patent foramen ovale) Ostium secundum type atrial septal defect PFO (patent foramen ovale) Ostium secundum type atrial septal defect documented in this encounter Care Teams Utility Service Worker Relationship Specialty Start Date End Date Gamaliel Lemus MD 36[address] [facility] [address] [place], [place] PCP - General Internal Medicine 08/15/24 documented as of this encounter
--- OUTSIDE RECORDS SUMMARY | 2024-10-24 16:37 | XMS_ITS | Encounter Summary ---
Author Organization [facility] Address [address] [place] [address] Care Team Providers Care Manager Culinary Name Role Phone Gamaliel Lemus MD Primary Care Provider [phone] Encounter Details Date Type Department Care Team (Late Contact Info) Description 09/18/2024 Telephone [facility]iology [facility] [address] [place] [address] Stephanie Griffith MA Social History Tobacco Use Types Packs/Day Years [...] Description 10/25/2024 Lab [facility]iology [facility] [address] [place] [address] Stephanie Griffith MA Elevated INR; PFO (patent foramen ovale) 10/25/2024 Lab [facility]iology [facility] [address] [place] [address] Rich Gonzalez MD [address] [place] [address] Dr Mcclendon [address] [place] [address] PFO (patent foramen ovale) 05/07/2025 2:00 PM EDT Office Visit [facility] Cardiology [facility] [address] [place] [address] Dr Torres [address] [place] [address] Nathan-Rich Ontiveros MD [address] [place] [address] Dr Mcclendon [address] [place] [address] documented as of this encounter 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 Not on filedocumented in this encounter Care Teams Manager Culinary Relationship Specialty Start Date End Date Gamaliel Lemus MD 36[address] [facility] [address] [place], [place] PCP - General Internal Medicine 08/15/24 documented as of this encounter
--- OUTSIDE RECORDS SUMMARY | 2024-10-24 16:37 | XMS_ITS | Encounter Summary ---
[facility] Organization [facility] Address [address] [place] [address] Care Team Providers Care Rollout Manager Name Role Phone Gamaliel Lemus MD Primary Care Provider [phone] Reason for Visit * Imaging (Routine) - Closed Specialty Diagnoses / Procedures Referred By Contac t Referred To Contact Cardiology Diagnoses Aortic valve stenosis, etiology of cardiac valve disease unspecified Procedures Transthoracic echocardiogram (TTE) complete with PRN contrast, bubble, strain, and 3D order panel NV TTE W 2D IMAGE COMPLETE W DOPPLER ECHO & COLOR FLOW DOPPLER ECHO NV MONICA 2D COMPLETE W/CONTRAST OR W & WO CONTRAST WITH DOPPLER Martha Wright MD [address] [place] [address] Dr [address]cl[address]on [address] [place] [id number] Phone: tel: fax: [facility] Referral ID Status Reason Start Date Expiration Date Visits Re quested Visits Authorized [id number] Closed 07/15/2024 07/15/2025 1 1 Encounter Details Date Type Department Care Team (Latest Contact Info) Description 09/26/2024 2:30 PM EST Ancillary Procedure [facility] - [address] [place] [address] Aortic valve stenosis, etiology of cardiac valve disease unspecified Social History Tobacco Use Types Packs/Day Years [...] Sign Reading Time Taken Comments Blood Pressure 125/60 09/26/2024 3:32 PM EST Pulse - - Temperature - - Respiratory Rate - - Oxygen Saturation - - Inhaled Oxygen Concentration - - Weight 58.1 kg (128 lb) 09/26/2024 3:32 PM EST Height 149.9 cm (4' 11 ) 09/26/2024 3:32 PM EST Body Mass Index 25.85 09/26/2024 3:32 PM EST documented in this encounter Plan of Treatment Upcoming Encounters Date Type Department Care Team (Late st Contact Info) Description 10/25/2024 Lab [facility] Cardiology [facility] - [address] [place] [address] Stephanie Griffith MA Elevated INR; PFO (patent foramen ovale) 10/25/2024 Lab [facility] - [address] [place] [address] Rich Gonzalez MD [address] [place] [address] Dr [address] [place] [address] PFO (patent foramen ovale) 05/07/2025 2:00 PM EDT Office Visit [facility] Cardiology [facility] [address] [place] [address] Rich Gonzalez MD [address] [place] [address] Dr [address]on [address] [place] [address] documented as of this encounter Procedures Procedure Name Priority Date/Time Associated Diagnosis Comments TRANSTHORACIC ECHOCARDIOGRAM (TTE) COMPLETE Routine 09/26/2024 3:33 PM EST Aortic valve stenosis, etiology of cardiac valve disease unspecified documented in this encounter Results * (ABNORMAL) TRANSTHORACIC ECHOCARDIOGRAM (TTE) COMPLETE (09/26/2024 3:33 PM EST) Left Atrium [place] 5.3 cm CV PACS Left Atrium [place] 4.7 cm CV PACS LA Area Sys (A2C) 18 cm2 CV PACS LA Area Sys (A4C) 16 cm2 CV PACS LA Volume (BP) 48 mL CV PACS RA Area 12.1 cm2 CV PACS RA 2D Volume 30 mL CV PACS AV Mean Gradient 8 mmHg CV PACS Ao VTI 41.1 cm CV PACS AV Peak Emre 2.0 m/s CV PACS AV Peak Gradient 16 mmHg CV PACS AV Area Continuity Equation 1.4 cm2 CV PACS AV Area Peak Velocity 1.6 cm2 CV PACS Ascending Aorta 3.9 cm CV PACS IVC Proximal 0.9 cm CV PACS IVC Proximal 0.4 cm CV PACS IVSD 0.8 0.6 - 0.9 cm CV PACS LVIDD 5.3(A) 3.8 - 5.2 cm CV PACS LVIDS 3.2 2.2 - 3.5 cm CV PACS LVOT Diameter 1.8 cm CV PACS LVOT Mean Emre 0.8 m/s CV PACS LVOT Mean Grad 3 mmHg CV PACS LVOT Peak VTI 22.4 cm CV PACS LVOT Peak Emre 1.2 m/s CV PACS LVOT Peak Gradient 6 mmHg CV PACS LVPWD 0.8 0.6 - 0.9 cm CV PACS MV E' Tissue Velocity Lateral 4 cm/s CV PACS MV E' Tissue Velocity Septal 4 cm/s CV PACS LVOT Area 2.5 cm2 CV PACS LVOT Stroke Volume 57 mL CV PACS E Wave Deceleration Time 225 119 - 242 ms CV PACS MV Peak A Emre 1.29 m/s CV PACS MV Peak E Emre 0.67 m/s CV PACS PV Acceleration Time 92 ms CV PACS RV Diastolic Basal Dimension 2.7 2.5 - 4.1 cm CV PACS RV S' 14 cm/s CV PACS TAPSE 23 mm CV PACS E/E' Ratio Septal 17 CV PACS E/E' Ratio Averaged 17 CV PACS Relative Wall Thickness ratio 0.30 CV PACS LVOT:AV VTI Index 0.55 CV PACS FS 40 % CV PACS LV Mass 2D 150 g CV PACS LVOT flow 203 mL/s CV PACS AV Velocity Ratio 0.60 CV PACS E/A Ratio 0.5 CV PACS E/E' Ratio Lateral 17 CV PACS BSA 1.55 m2 CV PACS LA Volume Index (BP) 31 mL/m2 CV PACS LVIDD Index 3.46 cm/m2 CV PACS LVIDS Index 2.09 cm/m2 CV PACS LV Mass Index 2D 98(A) 44 - 88 g/m2 CV PACS LVOT Stroke Index 37 mL/m2 CV PACS RA 2D Volume Index 20 15 - 27 mL/m2 CV PACS MASON Index (VTI) 0.91 cm2/m2 CV PACS MASON Index (Pk Emre) 1.05 cm2/m2 CV PACS Ascending Aorta Index 2.55 cm/m2 CV PACS Est. RA Pressure 3 mmHg CV PACS Anatomical Region Laterality Modality Ultrasound Narrative 09/28/2024 3:55 PM EST ?Left??Ventricle: Left ventricle cavity size is normal. Wall thickness is normal. Systolic function is normal with an ejection fraction of 60-65%. There are no regional LV wall motion abnormalities. There is Grade I (mild) diastolic dysfunction. ?Left??Atrium: Left atrium cavity size is normal. ?Right??Ventricle: Right ventricle cavity appears normal. Systolic function is normal. ?Right??Atrium: Right atrium cavity is normal. ?Aortic??Valve: The prosthetic valve appears well-seated. There is mild paravalvular regurgitation. Mean PG 7mmHg. AT 60ms Left Ventricle Left ventricle cavity size is normal. Wall thickness is normal. Systolic function is normal with an ejection fraction of 60-65%. There are no regional LV wall motion abnormalities. There is Grade I (mild) diastolic dysfunction. Right Ventricle Right ventricle cavity appears normal. Systolic function is normal. Left Atrium Left atrium cavity size is normal. Right Atrium Right atrium cavity is normal. IVC/SVC Inferior vena cava structure is normal. RA pressures is estimated to be 3 mmHg (IVC diameter <21 mm and decreases >50% during inspiration). Mitral Valve The leaflets are mildly thickened. There is mild annular calcification. There is trace regurgitation. There is no evidence of mitral valve stenosis. Tricuspid Valve Tricuspid valve structure is normal. The leaflets exhibit probably normal excursion. There is trace regurgitation. There is no significant tricuspid valve stenosis. Aortic Valve Bioprosthetic aortic Valve (TAVR) is functioning normally. The prosthetic valve appears well-seated. There is mild paravalvular regurgitation. Mean PG 7mmHg. AT 60ms Pulmonic Valve The pulmonic valve was not well visualized. No significant pulmonic valve regurgitation. No significant pulmonary valve stenosis noted. Ascending Aorta The ascending aorta is (3.9 cm). Pericardium Pericardium appears normal. There is no pericardial effusion. Study Details Overall the study quality was adequate. us Martha Wright MD CV ECHO PROCEDURES Final Resul t documented in this encounter 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 Diagnosis Aortic valve stenosis, etiology of cardiac valve disease unspecified Elevated INR Abnormal coagulation profile PFO (patent foramen ovale) Ostium secundum type atrial septal defect PFO (patent foramen ovale) Ostium secundum type atrial septal defect documented in this encounter Care Teams Rollout Manager Relationship Specialty Start Date End Date Gamaliel Lemus MD [address] PCP - General Internal Medicine 08/15/24 documented as of this encounter
--- OUTSIDE RECORDS SUMMARY | 2024-10-24 16:37 | XMS_ITS | Encounter Summary ---
Author Organization [facility] Address [address] [place] [address] Care Team Providers Care Search And Rescue Officer Name Role Phone Gamaliel Lemus MD Primary Care Provider [phone] Encounter Details Date Type Department Care Team (Late st Contact Info) Description 09/20/2024 Lab [facility] Cardiology [facility] [address] [place] [address] Stephanie Griffith [place] Elevated INR; PFO (patent foramen ovale) Social History Tobacco [...] (Late st Contact Info) Description 10/25/2024 Lab [facility] - [address] [place] [address] Stephanie Griffith [place] Elevated INR; PFO (patent foramen ovale) 10/25/2024 Lab [facility] [address] [place] [address] Rich Gonzalez MD [address] [place] [address] Dr [address] [place] [address] PFO (patent foramen ovale) 05/07/2025 2:00 PM EDT Office Visit [facility] [address] [place] [address] Dr [address] [place] [address] Rich Gonzalez MD [address] [place] [address] Dr [address] [place] [address] documented as of this encounter 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 Diagnosis Elevated INR Abnormal coagulation profile PFO (patent [...] 09/20/2024 documented in this encounter Care Teams Search And Rescue Officer Relationship Specialty Start Date End Date Gamaliel Lemus MD [address] [facility] [address] [place], [place] PCP - General Internal Medicine 08/15/24 documented as of this encounter
--- OUTSIDE RECORDS SUMMARY | 2024-10-24 16:38 | XMS_ITS | Clinical Summary ---
Author Organization [address] Address [address] [place] [phone] Phone Care Team Providers Care Facility Manager Name Role Phone Gamaliel Lemus MD Primary Care Provider [phone] Allergies Active Allergy Reactions Criticality Noted Date Comments Clopidogrel 07/12/2017 Iodinated Contrast Media 10/01/2024 Diarrhea Nsaids (Non-Steroidal Anti-I nflammatory Drug) 07/12/2017 Penicillins 07/12/2017 Medications warfarin (COUMADIN) 1 mg tablet TAKE 1-2 TABLETS BY MOUTH DAILY DIRECTED BY PV[facility] 180 tablet 3 07/08/20 24 Active albuterol 2.5 mg /3 mL (0.083 %) nebulizer solution Take 1 Vial by nebulization every 4 hours as needed. Active calcium carbonate-vitami n D3 600 mg-25 mcg (1,000 unit) capsule Take 1 Tablet by mouth daily. Active dilTIAZem (CARDIZEM) 30 mg immediate release tablet Take 1 Tablet by mouth 2 times daily. 07/27/20 23 Active escitalopram (LEXAPRO) 10 mg tablet Take 10 mg by mouth daily. Active furosemide (LASIX) 20 mg tablet Take 1 Tablet by mouth daily. Active LORazepam (ATIVAN) 0.5 mg tablet Take 0.5 mg by mouth every 6 hours as needed. Active omeprazole (PriLOSEC) [address] capsule Take 1 Capsule by mouth 2 times daily. Active rosuvastatin (CRESTOR) 10 mg tablet Take 10 mg by mouth daily. Active zolpidem (AMBIEN) 5 mg tablet Take 1 Tablet by mouth at bedtime. Active multivit-min/iro n/folic acid/K (ADULTS MULTIVITAMIN ORAL) Multiple Vitamins-Mineral s (MULTIVITAMIN ADULT) Tab Take by mouth daily. Active miscellaneous medical supply misc Oxygen Historical (HISTORICAL OXYGEN) Inhale 2 L into the lungs daily. Active umeclidinium-aletha anteroL (ANORO ELLIPTA) 62.5-25 mcg/actuation inhaler Inhale into the lungs. Active acetaminophen (TYLENOL 8 HOUR) 650 mg 8 hr tablet Take 1 tablet (650 mg total) by mouth 2 (two) times a day. Do not crush, chew, or split. Active potassium chloride (KLOR-CON M20) 20 mEq CR tablet Take 1 tablet (20 mEq total) by mouth 1 (one) time each day. Tablet may be swallowed whole (do not crush/chew/suck on) OR broken in half and each half swallowed separately OR dissolved (whole tablet) in ~4 ounces of water (allow ~2 minutes to dissolve, stir well and administer immediately). Active ferrous sulfate 325 mg (65 mg iron) EC tablet Take 1 tablet (325 mg total) by mouth 1 (one) time each day with breakfast. Do not crush, chew, or split. Active warfarin (COUMADIN) 5 mg tablet Take 1-2 tablets a day As instructed by PVCA 60 tablet 1 10/19/19 25 Active enoxaparin (LOVENOX) 60 mg/0.6 mL syringe INJECT 0.6 ML (60 MG TOTAL) UNDER THE SKIN EVERY 12 (TWELVE) HOURS. 10 each 1 09/17/19 25 025 Discontin ued(Thera py completed ) Active Problems Problem Noted Date Diagnosed Date Cerebrovascular accident (CVA) 08/16/2024 Overview (08/16/2024): 2014 - warfarin interrupted prior to an elective procedure and she suffered a cerebral stroke Assessment & Plan (10/02/2024 4:49 PM EST): No further neurologic symptoms. Continue with diltiazem, warfarin and rosuvastatin. We discussed risk reduction through lifestyle choices including healthy diet, routine exercise and weight management. Assessment & Plan (08/16/2024 11:22 AM EST): No further neurologic symptoms. Continue with diltiazem, warfarin and rosuvastatin. We discussed risk reduction through lifestyle choices including healthy diet, routine exercise and weight management. S/p TAVR (transcatheter aort ic valve replacement), bioprosthetic 08/15/2024 Overview (10/02/2024): Successful TAVR using a #23 Mandujano BRENDA 3 valve on 08/05/[address] Michelle. No complications. September 2024 - 30 day status post TAVR echocardiogram preserved LV systolic function LVEF 60 to 65%, no regional LV wall motion abnormalities, normal biatrial size, normal RV systolic function, well-seated TAVR valve with mild paravalvular regurgitation Assessment & Plan (10/02/2024 4:49 PM EST): Successful TAVR using #23 Mandujano BRENDA 3 valve on 08/05/24 . No complications. She has had symptomatic improvement following her TAVR. She continues to have shortness of breath in the setting of her COPD. Her valve is working well on exam and by recent echocardiogram. Instructed patient about the need for prophylactic antibiotics prior to dental work. Continue with warfarin. Orders: ECG 12 lead Assessment & Plan (08/16/2024 11:22 AM EST): Successful TAVR using #23 Mandujano BRENDA 3 valve on 08/05/24 . No complications. The patient is having some symptomatic improvement following her TAVR. She continues to have shortness of breath in the setting of her COPD. Her valve is workup well on exam. Instructed patient about the need for prophylactic antibiotics prior to dental work. She is schedule for a one month TAVR echocardiogram and then one month TAVR follow up. (HFpEF) heart failure with preserved ejection fr action 01/03/2024 Overview (08/16/2024): RV dysfunction in setting of COPD June [...] ventricular global systolic function, moderate-severe aortic stenosis Assessment & Plan (10/02/2024 4:49 PM EST): Echocardiogram from September 2024 showed normal LV systolic function LVEF 60- 65%. She appears compensated on exam. Continue with furosemide. Consider adding SGLT2 inhibitor. We reviewed heart failure management including low-sodium diet, symptom surveillance, daily weights and medication compliance. Assessment & Plan (08/16/2024 11:22 AM EST): Echocardiogram from April 2024 showed low normal LV systolic function LVEF 50-55%. She appears compensated on exam. Continue with furosemide. Consider adding SGLT2 inhibitor. We reviewed heart failure management including low-sodium diet, symptom surveillance, daily weights and medication compliance. Elevated INR 01/03/2024 CAD (coronary artery disease) 07/19/2023 Overview (08/16/2024): July 2022 - coronary CTA showed mild to moderate nonobstructive CAD with CT FFR analysis was normal No preTAVR catheterization done Assessment & Plan (10/02/2024 4:49 PM EST): Coronary CTA with mild to moderate disease. Continue with diltiazem, warfarin and rosuvastatin. We discussed risk reduction through lifestyle choices including healthy diet, routine exercise and weight management. Assessment & Plan (08/16/2024 11:22 AM EST): Coronary CTA with mild to moderate disease. Continue with diltiazem, warfarin and rosuvastatin. We discussed risk reduction through lifestyle choices including healthy diet, routine exercise and weight management. Palpitations 07/19/2023 Overview (08/16/2024): Holter monitor showed a normal sinus rhythm, rare PACs, and occasional PVCs. She also had a brief episode of nonconducted P waves. April to May 2024 - 30-day ROCT showed sinus rhythm, occasional PACs, occasional PVCs and no sustained arrhythmias with 3 triggered events showing sinus rhythm at that time Assessment & Plan (08/16/2024 11:22 AM EST): No further palpitations. Workup negative. Continue with diltiazem. Fall 06/07/2022 PFO (patent foramen ovale) 05/26/2021 Overview (08/16/2024): diagnosed in 2006 at which time started on warfarin Assessment & Plan (08/16/2024 11:22 AM EST): Hx of PFO and CVA. No further neurologic symptoms. Continue with warfarin and rosuvastatin. HTN (hypertension) 05/26/2021 Assessment & Plan (10/02/2024 4:49 PM EST): Controlled. Continue with diltiazem and furosemide. Assessment & Plan (08/16/2024 11:22 AM EST): Controlled. Continue with diltiazem and furosemide. Dyspnea 12/16/2020 Obstructive sleep apnea 11/16/2018 Overview (07/16/2024): [facility] Home Polysomnogram: Date 11/14/2018; Wt 177#; EARNEST 18, AI 6; HI 12; Unclassified apneas 1; Obstructive apneas 32; Central apneas 13; Mixed apneas 2; hypopneas 92; average oxygen saturation 94% (lowest 82% with saturations <88% for 5% or more of study) - Obstructive Sleep Apnea - moderate; mostly hypopneas with obstructive apneas and some central apneas; with sleep related hypoventilation by 2018 home polysomnogram. Chronic respiratory failure 08/08/2017 GERD (gastroesophageal reflux disease) 8 Hiatal hernia 08/08/2017 Overview (07/16/2024): S/p fundoplication Insomnia 08/08/2017 Pure hypercholesterolemia 08/08/2017 Assessment & Plan (10/02/2024 4:49 PM EST): July 2023 - LDL 89. Continue with rosuvastatin. Consider doubling to 20mg daily given LDL not at goal of 70. Assessment & Plan (08/16/2024 11:22 AM EST): July 2023 - LDL 89. Continue with rosuvastatin. Consider doubling to 20mg daily given LDL not at goal of 70. COPD (chronic obstructive pulmonary disease) 07/2017 Resolved Problems Problem Noted Date Diagnosed Date Resolved Date Aortic stenosis 12/16/2020 08/15/2024 Encounters Date Type Department Care Team Description 10/18/2024 Lab [facility] [address] [place] [address] Rich Gonzalez MD PFO (patent foramen ovale) 10/18/2024 Lab [facility] [address] [place] [phone] Stephanie Griffith MA Elevated INR; PFO (patent foramen ovale) 10/16/2024 Anticoagulation - Warfarin Visit [facility] [address] [place] [address] Rich Gonzalez MD PFO (patent foramen ovale) (Primary Dx) 10/11/2024 Lab [facility] [address] [place] [address] Rich Gonzalez MD PFO (patent foramen ovale) 10/11/2024 Lab [facility] [address] [place] [address] Stephanie Griffith MA Elevated INR; PFO (patent foramen ovale) 10/10/2024 Anticoagulation - Warfarin Visit [facility] [address] [place] [phone] Rich Gonzalez MD PFO (patent foramen ovale) (Primary Dx) 10/09/2024 Anticoagulation - Warfarin Visit [facility] [address] [place] [address] Rich Gonzalez MD PFO (patent foramen ovale) (Primary Dx) 10/04/2024 Lab [facility] [address] [place] [address] Rich Gonzalez MD PFO (patent foramen ovale) 10/04/2024 Lab [facility] [address] [place] [address] Stephanie Griffith MA Elevated INR; PFO (patent foramen ovale) 10/02/2024 Anticoagulation - Warfarin Visit [facility] [address] [place] [address] Rich Gonzalez MD PFO (patent foramen ovale) (Primary Dx) 10/01/2024 11:10 AM EST Office Visit [facility] [address] [place] [address] Vj Pritchett NP S/p TAVR (transcatheter aortic valve replacement), bioprosthetic (Primary Dx); Chronic heart failure with preserved ejection fraction (CMS/HCC); Coronary artery disease involving shawnee coronary artery of shawnee heart without angina pectoris; Hypertension, unspecified type; Cerebrovascular accident (CVA), unspecified mechanism (CMS/HCC); Pure hypercholesterolemia 09/27/2024 Lab [facility] [address] [place] [address] Rich Gonzalez MD PFO (patent foramen ovale) 09/27/2024 Lab [facility] [address] [place] [phone] Stephanie Griffith [place] Elevated INR; PFO (patent foramen ovale) 09/26/2024 2:30 PM EST Ancillary Procedure [facility] [address] [place] [phone] Aortic valve stenosis, etiology of cardiac valve disease unspecified 09/25/2024 Anticoagulation - Warfarin Visit [facility] Cardiology [facility] [address] [place] [address] Rich Gonzalez MD PFO (patent foramen ovale) (Primary Dx) 09/20/2024 Lab [facility] [address] [place] [phone] Rich Gonzalez MD PFO (patent foramen ovale) 09/20/2024 Lab [facility] [address] [place] [phone] Stephanie Griffith MA Elevated INR; PFO (patent foramen ovale) 09/18/2024 Anticoagulation - Warfarin Visit [facility] [address] [place] [phone] Rich Gonzalez MD PFO (patent foramen ovale) (Primary Dx) 09/18/2024 Telephone [facility] [address] [place] [phone] Stephanie Griffith MA 09/18/2024 Anticoagulation - Warfarin Visit [facility] [address] [place] [phone] Rich Gonzalez MD PFO (patent foramen ovale) (Primary Dx) 09/16/2024 Telephone [facility] [address] [place] [phone] Stephanie Griffith MA Med Refill (INR) 09/16/2024 Anticoagulation - Warfarin Visit [facility] [address] [place] [phone] Rich Gonzalez MD PFO (patent foramen ovale) (Primary Dx) 09/12/2024 Anticoagulation - Warfarin Visit [facility] [address] [place] [address] Rich Gonzalez MD PFO (patent foramen ovale) (Primary Dx) 09/11/2024 Anticoagulation - Warfarin Visit [facility] [address] [place] [address] Rich Gonzalez MD PFO (patent foramen ovale) (Primary Dx) 09/06/2024 Anticoagulation - Warfarin Visit [facility] [address] [place] [address] Rich Gonzalez MD PFO (patent foramen ovale) (Primary Dx) 09/03/2024 Anticoagulation - Warfarin Visit [facility] [address] [place] [address] Rich Gonzalez MD PFO (patent foramen ovale) (Primary Dx) 08/30/2024 Anticoagulation - Warfarin Visit [facility] [address] [place] [address] Rich Gonzalez MD PFO (patent foramen ovale) (Primary Dx) 08/27/2024 Anticoagulation - Warfarin Visit [facility] [address] [place] [address] Rich Gonzalez MD PFO (patent foramen ovale) (Primary Dx) 08/19/2024 Anticoagulation - Warfarin Visit [facility] [address] [place] [address] Rich Gonzalez MD PFO (patent foramen ovale) (Primary Dx) 08/16/2024 Anticoagulation - Warfarin Visit [facility] [address] [place] [address] Rich Gonzalez MD PFO (patent foramen ovale) (Primary Dx) 08/16/2024 Telephone [facility] [address] [place] [address] Vj Pritchett NP OTHER (Standing order for INR.) 08/15/2024 12:40 PM EST Office Visit [facility] [address] [place] [address] Vj Pritchett NP S/p TAVR (transcatheter aortic valve replacement), bioprosthetic (Primary Dx); Chronic heart failure with preserved ejection fraction (CMS/HCC); Coronary artery disease involving shawnee coronary artery of shawnee heart without angina pectoris; PFO (patent foramen ovale); Hypertension, unspecified type; Cerebrovascular accident (CVA), unspecified mechanism (CMS/HCC); Palpitations; Pure hypercholesterolemia 08/14/2024 Anticoagulation - Warfarin Visit [facility] [address] [place] [address] Rich Gonzalez MD PFO (patent foramen ovale) (Primary Dx) 08/12/2024 Anticoagulation - Warfarin Visit [facility] [address] [place] [address] Vj Pritchett NP PFO (patent foramen ovale) (Primary Dx) 08/05/2024 Telephone [facility] [address] [place] [address] Vj Pritchett NP returning call (Returning call ) 08/05/2024 Anticoagulation - Warfarin Visit [facility] [address] [place] [address] Rich Gonzalez MD PFO (patent foramen ovale) (Primary Dx) 07/29/2024 Anticoagulation - Warfarin Visit [facility] [address] [place] [address] Rich Gonzalez MD PFO (patent foramen ovale) (Primary Dx) from Last 3 Months Surgical History Surgery Date Site/Laterality Comments HERNIA REPAIR 02/2015 PROCEDURE: HISTORICAL HERNIA REPAIR/ING; COMMENT: hiatal SHOULDER SURGERY 02/2013 Right PROCEDURE: HISTORICAL SHOULDER SURGERY; COMMENT: shoulder replacement TOTAL KNEE ARTHROPLASTY 2001 Bilateral PROCEDURE: HISTORICAL TOTAL KNEE REPLACE CHOLECYSTECTOMY 1967 PROCEDURE: HISTORICAL CHOLECYSTECTOMY APPENDECTOMY 1967 PROCEDURE: HISTORICAL APPENDECTOMY Medical History Medical History Date Comments COPD (chronic obstructive pu lmonary disease) ([facility]/HCC) 07/18/2017 DX:COPD (chronic obstructive pulmonary disease) ([facility]) Hiatal hernia 08/08/2017 DX:Hiatal hernia Pure hypercholesterolemia 08/08/2017 DX:Pur e hypercholesterolemia GERD (gastroesophageal reflu x disease) 08/08/2017 DX:GERD (gastroesophageal re flux disease) Insomnia 08/08/2017 DX:Insomnia Chronic respiratory failure 08/08/2017 DX:C hronic respiratory failure ([facility]) Supplemental oxygen dependent 10/10/2017 DX :Supplemental oxygen dependent Social History Tobacco Use Types Packs/Day Years Used Date Smoking Tobacco: Former Cigarettes Q uit: 08/07/1985 Smokeless Tobacco: Never Tobacco Cessation:Counseling Given: Not Answered Alcohol Use Standard Drinks/Week Comments Not Currently 0 (1 standard drink = 0.6 oz pur e alcohol) Comments Unknown Sex and Gender Information Value Date Recorded Sex Assigned at Not on file Legal Sex Female 8:47 PM EST Gender Identity Not on file Sexual Orientation Not on file Obstetrics History Last Filed Vital Signs Vital Sign Reading [...] Mass Index 25.65 10/01/2024 11:25 AM EST Plan of Treatment Upcoming Encounters Date Type Department Care Team (Late st Contact Info) Description 10/25/2024 Lab [facility] [address] [facility] [address] [place] [address] Stephanie Griffith MA Elevated INR; PFO (patent foramen ovale) 10/25/2024 Lab [facility] [address] [place] [phone] Rich Gonzalez MD [address] [place] [address] [address] [place] [address] PFO (patent foramen ovale) 05/07/2025 2:00 PM EDT Office Visit [facility] Cardiology [facility] [address] [place] [phone] Rich Gonzalez MD [address] [place] [address] [address] [place] [address] Health Maintenance Due Date Last Done Comments Hepatitis A Vaccines (1 of 2 - Risk 2-dose series) 1959 Cholesterol Screening (Lipid Panel) 07/09/2022 Depression Screening 07/09/2022 Falls Risk Assessment 07/09/2022 Medicare Annual Wellness Visit 07/09/2022 Social Influencers of Health Screening 07/09/2022 Hypertension/CHF/CAD Annual BMP Blood Test 09/16/2025 09/16/2024, 06/11/2024, 06/11/2024 Osteoporosis Screening (Bone Density Screening) 11/06/2028 11/06/2018, 11/06/2018 DTaP,Tdap,and Td Vaccines (4 - Td or Tdap) 08/31/2033 08/31/2023, 08/16/2012, 02/15/2008 Pneumococcal Vaccine: 50+ Years Completed 03/02/2016, 11/07/2013, 02/15/2008 Zoster Vaccines Completed 07/09/2020, 03/2020, 08/07/2019, Additional history exists RSV Immunization Patients 60+ Years Old Completed 06/08/2023 COVID-19 Vaccine Completed 04/19/2024, , 11/17/2021, Additional history exists Influenza Vaccine Completed 04/19/2024, , 04/19/2022, Additional history exists HIB Vaccines Aged Out No longer eligi ble based on patient's age to complete this topic HPV Vaccines Aged Out No longer eligi ble based on patient's age to complete this topic Hepatitis B Vaccines Aged Out No long er eligible based on patient's age to complete this topic IPV Vaccines Aged Out No longer eligi ble based on patient's age to complete this topic MMR Vaccines Aged Out No longer eligi ble based on patient's age to complete this topic Meningococcal ACWY Vaccine Aged Out N o longer eligible based on patient's age to complete this topic Meningococcal B Vacine Aged Out No lo nger eligible based on patient's age to complete this topic RSV Immunization Patients Under 20 months Aged Out No longer eligible based on patient's age to complete this topic Varicella Vaccines Aged Out No longer eligible based on patient's age to complete this topic Procedures Procedure Name Priority Date/Time Associated Diagnosis Comments PROTHROMBIN TIME WITH INR Routine 10/16/2024 PROTHROMBIN TIME WITH INR Routine 10/10/2024 PROTHROMBIN TIME WITH INR Routine 10/09/2024 PROTHROMBIN TIME WITH INR Routine 10/02/2024 ECG 12-LEAD Routine 10/01/2024 11:41 AM EST S/p TAVR (transcatheter aortic valve replacement), bioprosthetic TRANSTHORACIC ECHOCARDIOGRAM (TTE) COMPLETE Routine 09/26/2024 3:33 PM EST Aortic valve stenosis, etiology of cardiac valve disease unspecified PROTHROMBIN TIME WITH INR Routine 09/25/2024 PROTHROMBIN TIME WITH INR Routine 09/17/2024 4:04 PM EST PFO (patent foramen ovale) PROTHROMBIN TIME WITH INR Routine 09/17/2024 BASIC METABOLIC PANEL Routine 09/16/2024 3:12 PM EST CBC WITH AUTO DIFFERENTIAL Routine 09/16/2024 3:12 PM EST PROTHROMBIN TIME WITH INR Routine 09/13/2024 1:40 PM EST PFO (patent foramen ovale) S/p TAVR (transcatheter aortic valve replacement), bioprosthetic PROTHROMBIN TIME WITH INR Routine 09/12/2024 PROTHROMBIN TIME WITH INR Routine 09/12/2024 PROTHROMBIN TIME WITH INR Routine 09/11/2024 PROTHROMBIN TIME WITH INR Routine 09/06/2024 PROTHROMBIN TIME WITH INR Routine 09/03/2024 PROTHROMBIN TIME WITH INR Routine 08/30/2024 PROTHROMBIN TIME WITH INR Routine 08/27/2024 PROTHROMBIN TIME WITH INR Routine 08/19/2024 PROTHROMBIN TIME WITH INR Routine 08/16/2024 1:44 PM EST PFO (patent foramen ovale) S/p TAVR (transcatheter aortic valve replacement), bioprosthetic PROTHROMBIN TIME WITH INR Routine 08/14/2024 PROTHROMBIN TIME WITH INR Routine 08/12/2024 PROTHROMBIN TIME WITH INR Routine 08/05/2024 PROTHROMBIN TIME WITH INR Routine 07/29/2024 YESENIA DEXA AXIAL SKELETON Routine 11/06/2018 1:48 PM EDT Encounter for screening for osteoporosis from Last 3 Months or Most Recently Relevant to Health Maintenance Results * Prothrombin time with INR (10/16/2024) Only the most recent of21 resultswithin the time period is included. INR 2.2 Prothrombin Time POC Blood Venous blood specimen / Unknown 10/16/2024 Historical Provider MD LAB BLOOD ORDERABLES Ruth l Result * ECG 12 lead (10/01/2024 11:41 AM EST) Ventricular Rate ECG 57 BPM GEMUSE Atrial Rate 57 BPM GEMUSE P-R Interval 208 ms GEMUSE QRS Duration 84 ms GEMUSE Q-T Interval 402 ms GEMUSE QTc 391 ms GEMUSE P Wave [place] 62 degrees GEMUSE R [place] 43 degrees GEMUSE T [place] 52 degrees GEMUSE ECG Interpretation Sinus bradycardia with occasional Premature ventricular complexes Abnormal ECG When compared with ECG of 22-NOV-2023 14:48, Premature ventricular complexes are now Present Vent. rate has decreased BY ??37 BPM Confirmed by JUAN OSBORNE ([id number]) on 10/01/2024 4:02:52 PM GEMUSE 10/01/2024 11:4 1 AM EST 10/01/2024 4:02 PM EST Vj Pritchett FINANCIAL ANALYSIS CONSULTANT ECG ORDERABLES Final Resul t GEMUSE * (ABNORMAL) TRANSTHORACIC ECHOCARDIOGRAM (TTE) COMPLETE (09/26/2024 3:33 PM EST) Left Atrium Minor [place] 5.3 cm CV PACS Left Atrium Major [place] 4.7 cm CV PACS LA Area Sys [...] MD CV ECHO PROCEDURES Final Resul t * (ABNORMAL) CBC auto differential (09/16/2024 3:12 PM EST) WBC 7.0 3.4 - 10.8 x10E3/uL [facility] 1 RBC 3.43(L) 3.77 - 5.28 x10E6/uL [facility] 1 Hemoglobin 10.7(L) 11.1 - 15.9 g/dL [facility] 1 Hematocrit 32.9(L) 34.0 - 46.6 % [facility] 1 MCV 96 79 - 97 fL [facility] 1 MCH 31.2 26.6 - 33.0 pg [facility] 1 MCHC 32.5 31.5 - 35.7 g/dL [facility] 1 RDW 12.5 11.7 - 15.4 % [facility] 1 Platelets 193 150 - 450 x10E3/uL [facility] 1 Neutrophils 57 Not Estab. % [facility] 1 Lymphocytes 34 Not Estab. % [facility] 1 Monocytes 7 Not Estab. % [facility] 1 Eosinophils 1 Not Estab. % [facility] 1 Basophils 1 Not Estab. % [facility] 1 Neutrophils Absolute 4.0 1.4 - 7.0 x10E3/uL [facility] 1 Lymphocytes Absolute 2.4 0.7 - 3.1 x10E3/uL [facility] 1 Monocytes Absolute 0.5 0.1 - 0.9 x10E3/uL [facility] 1 Eosinophils Absolute 0.1 0.0 - 0.4 x10E3/uL [facility] 1 Basophils Absolute 0.0 0.0 - 0.2 x10E3/uL [facility] 1 Immature Granulocytes Relative 0 Not Estab. % [facility] 1 Immature Grans (Abs) 0.0 0.0 - 0.1 x10E3/uL [facility] 1 09/16/2024 3:12 PM EST 09/16/2024 Narrative [facility] 1 - 09/17/2024 2:05 AM EST Performed at: ??01 - [facility] [address] ??[id number] Termite Inspector: Charity Mccormack MD, Phone: ??[phone] us Martha Wright MD LAB BLOOD ORDERABLES Final Res ult [facility] 1 * Basic metabolic panel (09/16/2024 3:12 PM EST) Glucose 98 70 - 99 mg/dL [facility] 1 Blood Urea Nitrogen (BUN) 11 8 - 27 mg/dL [facility] 1 Creatinine 0.61 0.57 - 1.00 mg/dL [facility] 1 eGFR 90 >59 mL/min/1.7 3 [facility] 1 BUN/Creatinine Ratio 18 12 - 28 [facility] 1 Sodium 138 134 - 144 mmol/L [facility] 1 Potassium 3.8 3.5 - 5.2 mmol/L [facility] 1 Chloride 100 96 - 106 mmol/L [facility] 1 Carbon Dioxide 23 20 - 29 mmol/L [facility] 1 Calcium 9.2 8.7 - 10.3 mg/dL [facility] 1 09/16/2024 3:12 PM EST 09/16/2024 Narrative [facility] 1 - 09/17/2024 2:05 AM EST Performed at: ??01 - [facility] [address] ??[id number] Termite Inspector: Charity Mccormack MD, Phone: ??[phone] us Martha Wright MD LAB BLOOD ORDERABLES Final Res ult [facility] 1 * YESENIA DEXA AXIAL SKELETON (11/06/2018 1:48 PM EDT) Anatomical Region Laterality Modality Mammography 11/06/2018 12:4 5 PM EDT Narrative 11/06/2018 1:48 PM EDT [facility] Diagnostic Imaging Department [address] [place], [place] [id number] Patient: ??BETINA HURLEY ?/Age/Sex: 1940 - 77 - F Unit#: ??[id number] ? Location/Status: ??SPDIMAM/REG CLI ? Mnemonic/Ordering Site: ??MAMDEXAAX/SPMAM Ordering Physician: ??JUAREZ LIRIANO MD Yesenia Dexa Axial Skeleton - 11/06/182 HISTORY: ??The patient is a 77-year-old postmenopausal female with clinical concern for metabolic bone disease. FINDINGS: ??Dual energy x-ray absorptiometry of the lumbar spine and femurs is performed. The mean bone mineral density at L1-3 is 0.894 gm/cm2 which is 76% of that of young normals and 88% of that of age matched controls. This yields a T- score of -2.3 and a Z-score of -1.1 which is diagnostic of osteopenia. The mean bone mineral density of the femurs bilaterally is 0.627 gm/cm2 which is 62% of that of young normals and 75% of that of age matched controls. ??This yields a T-score of -3.0 and a Z-score of -1.6 which is diagnostic of osteoporosis. The T-score of the right femoral neck is -2.7 and that of the left femoral neck is -3.7 which is diagnostic of osteoporosis. IMPRESSION: 1. Osteoporosis. 2. FRAX analysis yields a 10-year probability of major osteoporotic fracture of 37.8% and a 10-year probability of hip fracture of 14.5%. Code 55761 Dictating Physician: ??COURTNEY HERMAN MD Electronically Signed by: ??COURTNEY HERMAN MD Dic Date/Time: ??11/06/18 1346 Sign date/Time: ??11/06/18 1348 Procedure Note Courtney Herman MD - 07/26/2022 [facility] Diagnostic Imaging Department [address] [place] [address] Patient: BETINA HURLEYO.B./Age/Sex: 1940 - 77 - F Unit#: [id number] Location/Status: SPDIMAM/REG CLI Mnemonic/Ordering Site: MAMDEXAAX/SPMAM Ordering Physician: JUAREZ LIRIANO MD Yesenia Dexa Axial Skeleton - 11/06/181331 HISTORY: The patient is a 77-year-old postmenopausal female withclinical concern for metabolic bone disease. FINDINGS: Dual energy x-ray absorptiometry of the lumbar spine and femursis performed. The mean bone mineral density at L1-3 is 0.894 gm/cm2 which is76% of that of young normals and 88% of that of age matched controls. This yieldsa T- score of -2.3 and a Z-score of -1.1 which is diagnostic of osteopenia. The mean bone mineral density of the femurs bilaterally is 0.627 gm/gf5hythl is 62% of that of young normals and 75% of that of age matched controls.This yields a T-score of -3.0 and a Z-score of -1.6 which is diagnostic of osteoporosis. The T-score of the right femoral neck is -2.7 and that ofthe left femoral neck is -3.7 which is diagnostic of osteoporosis. IMPRESSION: 1. Osteoporosis. 2. FRAX analysis yields a 10-year probability of major osteoporoticfracture of 37.8% and a 10-year probability of hip fracture of 14.5%. Code 60209 Dictating Physician: COURTNEY HERMAN MD Electronically Signed by: COURTNEY HERMAN MD Dic Date/Time: 11/06/18 1346 Sign date/Time: 11/06/18 1348 Juarez Liriano MD IMG BI PROCEDURES Final Res ult from Last 3 Months or Most Recently Relevant to Health Maintenance Insurance [employer] MED[employer]ARE Care Teams Facility Manager Relationship Specialty Start Date End Date Gamaliel Lemus MD [address] PCP - General Internal Medicine 08/15/24
--- OUTSIDE RECORDS SUMMARY | 2024-10-24 16:38 | XMS_ITS | Encounter Summary ---
Author Organization [facility] Address [address] [place] [address] Care Team Providers Care Office Service Coordinator Name Role Phone Gamaliel Lemus MD Primary Care Provider [phone] Encounter Details Date Type Department Care Team (Latest Contact Info) Description 10/02/2024 Anticoagulation - Warfarin Visit [facility] [place] [address] [place] [phone] Nathan-Rich Ontiveros MD [address] [place] [address] [address] [place], [place] [phone] PFO (patent foramen ovale) (Primary Dx) Social [...] Progress Notes * Padilla Acuna MA - 10/02/2024 10:19 AM EST Patient aware of instructions documented in this encounter Plan of Treatment Upcoming Encounters Date Type Department Care Team (Late st Contact Info) Description 10/25/2024 Lab [facility] [address] [place] [phone] Stephanie Griffith MA Elevated INR; PFO (patent foramen ovale) 10/25/2024 Lab [facility] - [address] [place] [address] Rich Gonzalez MD [address] [place] [address] Dr [address] [place] [address] PFO (patent foramen ovale) 05/07/2025 2:00 PM EDT Office Visit [facility] [address] [place] [address] Dr [address] [place] [phone] Rich Gonzalez MD [address] [place] [address] Dr [address] [place] [address] documented as of this encounter Procedures Procedure Name Priority Date/Time Associated Diagnosis Comments PROTHROMBIN TIME WITH INR Routine 10/02/2024 documented in this encounter Results * Prothrombin time with INR (10/02/2024) INR 2.3 Prothrombin Time POC Blood Venous blood specimen / Unknown 10/02/2024 us Historical Provider LAB BLOOD ORDERABLES Ruth l Result documented in this encounter 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 Diagnosis PFO (patent foramen ovale)- Primary Ostium secundum type atrial septal defect Elevated INR Abnormal coagulation profile PFO (patent foramen ovale) Ostium secundum type atrial septal defect PFO (patent foramen ovale) Ostium secundum type atrial septal defect documented in this encounter Care Teams Office Service Coordinator Relationship Specialty Start Date End Date Gamaliel Lemus MD [address] [place], [place] PCP - General Internal Medicine 08/15/24 documented as of this encounter
--- OUTSIDE RECORDS SUMMARY | 2024-10-24 16:38 | XMS_ITS | Continuity of Care Document ---
Author Organization [facility], Main Office Address [address] [facility] [address] [place] [address] Care Team Providers Care Squeak Rattle And Leak Repairer Name Role Phone GAMALIEL QUINONEZ Primary Care Provider SHOBHA STONE Access Nurse SHARONDA LOPEZ Bird Trapper [phone] ROSE CRAWFORD Steam Shovel Engineer JOSE DINH Orthopedist LULA GRIGGS Obstetrics Specialist [facility] Senior [employer] Network Engineer EVAN FLAHERTY Senior [employer] Network Engineer SETH ENCARNACION Driver License Agent [phone] FELTON WORRELL Senior [employer] Network Engineer Assessment No assessment recorded. Plan of Treatment Reminders Order Date Submit Date Provider Last Modified By Organization Details Last Modified Time Details Appointments FOLLOW UP 30MIN 2024 02:15P An Quinonez MD Not available Not available Not available Lab vitamin D, 25-hydro xy, total, serum 2024 025 [facility], [address], [address], 10/14/2024 15:40:09 lipid panel, serum 2024 025 [facility] (Centralized Electronic Ordering - All Locations), Patient Can Go To The Location Of Their Choice, [id number] 10/14/2024 17:05:37 CMP, serum or plasma 2024 025 [place] [facility] (Centralized Electronic Ordering - All Locations), Patient Can Go To The Location Of Their Choice, [address] 10/14/2024 17:05:38 CBC w/ auto diff 2024 025 [facility] (Centralized Electronic Ordering - All Locations), Patient Can Go To The Location Of Their Choice, [address] 10/14/2024 17:05:37 iron + total iron-bin ding capacity (TIBC), serum 2024 [place] [facility] (Centralized Electronic Ordering - All Locations), Patient Can Go To The Location Of Their Choice, [address] 10/14/2024 17:05:38 ferritin , serum or plasma 2024 025 [place] [facility] (Centralized Electronic Ordering - All Locations), Patient Can Go To The Location Of Their Choice, [address] 10/14/2024 17:05:38 Referral nutritio nist/ fitoian referral 2024 025 [email or web address] Not available 10/14/2024 15:44:06 Procedures None recorded . Surgeries None recorded . Imaging None recorded . Medication Orders polymyxi n B sulfate 10,000 unit-tri methopri m 1 mg/mL eye drops 2024 [id number], [address] [place] [address], [address], 10/14/2024 16:34:33 lorazepa m 0.5 mg tablet 2024 [facility], Located [facility], [place], [address], 10/14/2024 16:35:15 Patient TargetsNo targets recorded. Patient Instructions Encounter Date Encounter Id Patient Instructions Last Modified By Organization Details Last Modified Time 10/14/2024 [id number] osteoporosis: care instructions [email or web address] Not available 10/14/2024 15:40:00 high cholesterol: care instructions [email or web address] Not available 10/14/2024 17:05:33 anemia: care instructions [email or web address] Not available 10/14/2024 17:05:33 preventing falls: care instructions [email or web address] Not available 10/14/2024 15:40:00 well visit, over 65: care instructions [email or web address] Not available 10/14/2024 15:40:00 medicare preventive services guide (female 74yrs and under) [email or web address] Not available 10/14/2024 15:40:00 chronic obstructive pulmonary disease (COPD): care instructions [email or web address] Not available 10/14/2024 15:40:00 learning about copd and how to prevent lung infections awychowski Not available 10/14/2024 15:40:00 depression treatment: care instructions awychowski Not available 10/14/2024 17:05:33 When You Want to Lose Weight: Care Instructions [email or web address] Not available 10/14/2024 15:40:00 Nutrition Referral and Weight Management Follow-up Information [email or web address] Not available 10/14/2024 15:40:00 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 [address], [address], 10/14/2024 15:11:35 10/01/19 ECG 12-le ad No observ ation record ed. [address], [address], 10/14/2024 15:11:35 Result Notes None recorded. Problems Name Problem SNOMED Code Status Onset Date Resolution Date Notes Provider Name and Address Organization Details Recorded Time Cerebrov ascular accident 706340342 Completed 08/29/2022 Gamaliel Quinonez MD [address] [facility] [address], [place], [address] , [facility] 15:32:26 Hoarse 91948049 Completed 04/02/2018 Gamaliel Quinonez MD [address] [facility] [address], [place], [address] , [facility] 13:41:08 Recurren t anxiety 984679004 Completed 03/27/2017 Gamaliel Quinonez MD [address] [facility] [address], [place], [address] , [facility] 14:11:54 Left to right cardiac shunt 545998034 Active Not Available [facility] 4 12:04:18 Patent foramen ovale 883140580 Active Not Available [facility] 4 12:04:17 Left lower quadrant pain 705605496 Completed 201203/17/2014 IMPRESSI ON: SYMPTOMS , RISK FACTORS AND EXAM FINDINGS ARE C/W DIVERTIC ULITIS. WILL CHECK LABS AND IMAGING TO SEE IF CONFIRMS . WILL TRY HOLDING ABX UNTIL CT DONE BUT IF LEUKOCYT OSIS PRESENT OR SYMPTOMS WORSEN WILL START EMPIRICA LLY.; RECORDED 03/01/20 13 11:34AM BY FARIBA ALVAREZ MA, ANNOTATI ON/BROOK Quinonez MD [address] [facility] [address], [place], [address] , [facility] 15:29:09 Alcohol abuse 82203688 Completed 201303/17/2014 RECORDED 01/01/20 14 11:10AM BY RAMA VENTURA MA, ANNOTATI ON/ADDMARTÍN DUM Gamaliel Quinonez MD [address] [facility] [address], [place], [address] , [facility] 15:29:08 Drug therapy Completed 201303/17/2014 RECORDED 02/07/20 14 4:08PM BY GAMALIEL Pacheco MD, ANNOTATI ON/ADDMARTÍN DUM Gamaliel Quinonez MD [address] [facility] [address], [place], [address] , [facility] 15:29:09 Anxiety state 374489582 Completed 201303/17/2014 RECORDED 01/01/20 14 11:10AM BY RAMA VENTURA MA, TAISHAATI ON/BROOK Quinonez MD [address] [facility] [address], [place], [address] , [facility] 15:29:08 Tobacco user 192528333 Completed 201203/17/2014 RECORDED 03/01/20 13 11:34AM BY FARIBA ALVAREZ MA, KARSON ON/BROOK Quinonez MD [address] [facility] [address], [place], [address] , [facility] 15:29:08 History of clinical finding in subject 885657348 Completed 201211/06/2014 RECORDED 03/01/20 13 11:34AM BY FARIBA ALVAREZ MA, ANNOTATI ON/BROOK Quinonez MD [address] [facility] [address], [place], [address] , [facility] 15:29:09 Benign essentia l hyperten cristela 5985056 Completed 201303/17/2014 IMPRESSI ON: WELL CONTROLL ED, CONTINNU E CURRENT REGIMEN. LOW NA DIET, REGULAR EXERCISE AND WT LOSS ADVISED. ; RECORDED 01/01/20 14 11:12AM BY RAMA VENTURA MA, ANNOTATI ON/BROOK Quinonez MD [address] [facility] [address], [place], [address] , [facility] 15:29:08 Pain in limb 43697648 Completed 201103/17/2014 IMPRESSI ON: SEEMS LIKE MUSCLE PAIN BUT I WOULD LIKE TO RULE OUT ANY BONE ABNORMAL ITY. CHECK LABS SCREENIN G FOR MYOSITIS . OPIATE HAS HELPED SO WILL PRESCRIB E BUT IF LABS/XRA Y ARE NORMAL AND SYMPTOMS PERSIST THEN PMR CONSULT TO R/O COMPARTM ENT SYNDROME WOULD BE WARRANTE D.; RECORDED 06/07/20 12 1:22PM BY FARIBA ALVAREZ MA, ANNOTATI ON/BROOK Quinonez MD [address] [facility] [address], [place], [address] , [facility] 15:29:09 Screenin g for malignan t neoplasm of breast Completed 201103/17/2014 RECORDED 03/26/20 12 1:01PM BY FARIBA ALVAREZ MA, ANNOTATI ON/BROOK Quinonez MD [address] [facility] [address], [place], [address] , [facility] 15:29:09 Screenin g for malignan t neoplasm of colon Completed 201203/17/2014 RECORDED 09/21/19 13 11:26AM BY FARIBA ALVAREZ MA, ANNOTATI ON/BROOK Quinonez MD [address] [facility] [address], [place], [address] , [facility] 15:29:09 History of depressi on 881614167 Completed 201303/17/2014 RECORDED 01/01/20 14 11:10AM BY RAMA VENTURA MA, ANNOTMARY ON/BROOK Quinonez MD [address] [facility] [address], [place], [address] , [facility] 15:29:09 Respirat ory finding 412766963 Completed 201303/17/2014 IMPRESSI ON: ETIOLOGY UNCLEAR BUT DOES NOT APPEAR TO BE CARDIAC SO NEED TO PURSUE PULMONAR Y EVALUATI ON FURTHER. TRY RESCUE INHALER EVEN THOUGH PFT IN THE PAST DID NOT SHOW REVERSIB LE DISEASE. ; RECORDED 02/07/20 14 3:40PM BY RAMA VENTURA MA, OFFICE VISIT Gamaliel Quinonez MD [address] [facility] [address], [place], [address] , [facility] 15:29:09 Dysuria 21400281 Completed 201103/17/2014 IMPRESSI ON: UA NL, POSSIBLE THAT SYMPTOMS ARE FROM A NOW TREATED VAGINITI S. CALL IF PERSISTA NT/WORSE .; RECORDED 07/05/20 12 4:29PM BY FARIBA ALVAREZ MA, ANNOTATI ON/ADDEN DUM Gamaliel Quinonez MD [address], [place], [address] , [facility] 15:29:09 Emphysem a Completed 201303/17/2014 RECORDED 01/01/20 14 11:10AM BY RAMA VENTURA MA, TAISHAATI ON/ADDEN DUM Gamaliel Quinonez MD [address], [place], [address] , [facility] 15:29:08 Follow-u p encounte r Completed 201203/17/2014 RECORDED 03/01/20 13 11:34AM BY FARIBA ALVAREZ MA, ANNOTATI ON/ADDEN DUM Gamaliel Quinonez MD [address], [place], [address] , [facility] 15:29:09 Influenz a vaccine needed 49084478797 06 Completed 201103/17/2014 RECORDED 03/26/20 12 1:41PM BY GAMALIEL Pacheco MD, OFFICE VISIT Gamaliel Quinonez MD [address], [place], [address] , [facility] 15:29:09 Ostium secundum type atrial septal defect 383653132 Completed 201303/17/2014 RECORDED 01/01/20 14 11:11AM BY RAMA VENTURA MA, ANNOTATI ON/ADDEN DUM Gamaliel Quinonez MD [address] [facility] [address], [place], [address] , [facility] 15:29:09 Adult health examinat ion Completed 201203/17/2014 IMPRESSI ON: WILL UPDATE IMMUNIZA TION STATUS AND SCREEN BASED ON RISK FACTORS. REGULAR DENTAL CARE AND SEATBELT USE ADVISED. DISTRACT ED DRIVING LEYDA MONET OPY LATER THIS MONTH; RECORDED 09/21/19 13 11:26AM BY FARIBA ALVAREZ MA, TAISHAATI ON/BROOK Quinonez MD [address], [place], [address] , [facility] 15:29:09 Renewal of prescrip tion Completed 201103/17/2014 RECORDED 07/05/20 12 4:29PM BY FARIBA ALVAREZ MA, TAISHAATI ON/BROOK Quinonez MD [address] [facility] [address], [place], [address] , [facility] 15:29:09 Multiple joint pain 77648491 Completed 201203/17/2014 IMPRESSI ON: SUSPECT INFECTIO N MAY BE THE ISSUE SUPERIMP OSED ON ARTHRITI S. WILL FOLLOW WITH MARY Mauro.; RECORDED 03/01/20 13 11:34AM BY FARIBA ALVAREZ MA, TAISHAATI ON/BROOK Quinonez MD [address], [place], [address] , [facility] 15:29:09 Screenin g for malignan t neoplasm of cervix Completed 201103/17/2014 RECORDED 03/26/20 12 1:01PM BY FARIBA ALVAREZ MA, KARSON ON/BROOK Quinonez MD [address], [place], [address] , [facility] 15:29:09 Herpes zoster 5163559 Active Not Available [facility] 4 12:04:18 Shoulder joint pain 558830080 Completed 201203/17/2014 IMPRESSI ON: LIKEY MUSCLE STRAIN, VS BURSITIS VS ARTHRITI S VS ROTATOR CUFF INJURY. XRAY UNREMARA KBEL. HAS ORTHO APPT NEXT WEEK.; RECORDED 03/01/20 13 11:34AM BY FARIBA ALVAREZ MA, ANNOTATI ON/ DUM Gamaliel Quinonez MD [address] [address], [place], [address] , [facility] 15:29:09 Cerebrov ascular disease 62716574 Active 2014 Not Available [facility] 4 12:04:18 Administ ration of diphther ia and tetanus vaccine Completed 201203/17/2014 RECORDED 09/21/19 13 11:26AM BY FARIBA ALVAREZ MA, ANNOTATI ON/ Gamaliel Quinonez MD [address] [address], [place], [address] , [facility] 15:29:09 Administ ration of viral vaccine Completed 201303/17/2014 RECORDED 01/01/20 14 11:10AM BY RAMA VENTURA MA, ANNOTATI ON/ Gamaliel Quinonez MD [address] [address], [place], [address] , [facility] 15:29:09 Insomnia 656865118 Active Not Available [facility] 4 12:04:17 Cerebral artery occlusio n 12437235 Active Not Available [facility] 4 12:04:17 Late effects of cerebrov ascular disease 254012976 Completed 03/02/2016 Gamaliel Quinonez MD [address] [address], [place], [address] , [facility] 15:29:09 Disorder of vocal cord 29569907 Completed 03/27/2017 Gamaliel Quinonez MD [address] [address], [place], [address] , [facility] 14:13:36 Osteopen ia 581553369 Completed 11/11/2016 Gamaliel Quinonez MD [address], [place], [address] , [facility] 08:17:31 Pneumoni a 931242631 Completed 08/11/2015 Gamaliel Quinonez MD [address], [place], [address] , [facility] 15:29:08 Osteopor osis 58760862 Active On reclast via rheum Not Available [facility] 4 12:04:18 Calcific ation of coronary artery 941795970 Active Not Available [facility] 4 12:04:18 Hiatal hernia 61014731 Active type 3 Not Available [facility] 4 12:04:18 Breast lump 55927000 Completed 03/27/2017 Gamaliel Quinonez MD [address], [place], [address] , [facility] 14:14:56 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 Active 2014 Not Available [facility] 4 12:04:17 Major depressi on in remissio n 82521542 Completed 04/02/2018 Gamaliel Quinonez MD [address], [place], [address] , [facility] 13:40:57 Vertigo 157301593 Completed 03/27/2017 Gamaliel Quinonez MD [address], [place], [address] , [facility] 14:14:28 Follow-u p encounte r Completed 06/23/2015 Gamaliel Quinonez MD [address], [place], [address] , [facility] 15:29:09 Benign paroxysm al position al vertigo 640464260 Active Not Available [facility] 4 12:04:17 Candidia sis of mouth 74510334 Completed 08/11/2015 Gamaliel Quinonez MD [address], [place], [address] , [facility] 15:29:08 Palpitat ions 34759510 Completed 07/18/2019 Gamaliel Quinonez MD [address], [place], [address] , [facility] 14:01:15 Olecrano n bursitis 628920407 Completed 03/02/2016 elbow Gamaliel Quinonez MD [address], [place], [address] , [facility] 15:29:09 Fatigue 47455314 Completed 08/10/2021 Gamaliel Quinonez MD [address], [place], [address] , [facility] 14:00:23 Pyuria 0656202 Completed 08/11/2015 Gamaliel Quinonez MD [address], [place], [address] , [facility] 15:29:09 Cough 64719899 Completed 03/02/2016 Gamaliel Quinonez MD [address], [place], [address] , [facility] 15:29:09 Left atrial enlargem ent 77659082880 109 Active Not Available [facility] 4 12:04:18 Diastoli c dysfunct ion 4977002 Active Not Available [facility] 4 12:04:17 Right atrial enlargem ent 70969600955 106 Active Not Available [facility] 4 12:04:18 Aortic valve regurgit ation 96294818 Completed 10/14/2024 Gamaliel Quinonez MD [address], [place], [address] , [facility] 17:03:56 Degenera tive joint disease of hand 78536466 Active Not Available [facility] 4 12:04:17 Subacrom ial bursitis 18572780 Completed 04/02/2018 Gamlaiel Quinonez MD [address], [place], [address] , [facility] 13:41:41 Anxiety state 416986284 Active Not Available [facility] 4 12:04:17 Postoper ative vomiting 78942532 Completed 03/27/2017 Gamaliel Quinonez MD [address] [facility] [address], [place], [address] , [facility] 14:12:25 Hemorrho ids 33806359 Active 2015 Not Available [facility] 4 12:04:18 Divertic ular disease 461563920 Completed 201508/29/2022 Gamaliel Quinonez MD [address], [place], [address] , [facility] 15:22:27 Subacrom ial bursitis 19612235 Completed 201503/27/2017 Gamaliel Quinonez MD [address], [place], [address] , [facility] 14:12:52 Chronic obstruct lucila pulmonar y disease 50051467 Active 2016 Not Available [facility] 4 12:04:17 Bursitis of right shoulder 26711700749 9107 Active 2016 Not Available [facility] 4 12:04:17 Bursitis of left shoulder 16787487364 9104 Active 2016 Not Available [facility] 4 12:04:17 Hypoxia 855145061 Active 2017 Not Available [facility] 4 12:04:17 Chronic hypoxemi c respirat ory failure 273109642 Active 2017 Not Available [facility] 4 12:04:18 Pulmonar y emphysem a 92725762 Active 2017 Not Available [facility] 4 12:04:18 Esophage al dysmotil ity 000349176 Active 2017 Not Available [facility] 4 12:04:17 Small vessel cerebrov ascular disease 374739653 Active 2018 Not Available [facility] 4 12:04:18 Obstruct lucila sleep apnea syndrome 49960934 Active 2018 Not Available [facility] 4 12:04:18 Right ventricu lar hypertro phy 16913151 Active 2018 Not Available [facility] 4 12:04:18 Aortic valve stenosis 60354966 Completed 201810/14/2024 moderate /severe Gamaliel Quinonez MD [address], [place], [address] , [facility] 17:03:43 Fracture of distal end of radius 545046846 Completed 201807/18/2019 dis[address] d on right Gamaliel Quinonez MD [address], [place], [address] , [facility] 13:45:42 Fracture of distal end of ulna 922421588 Completed 201807/18/2019 Gamaliel Quinonez MD [address], [place], [address] , [facility] 13:45:47 Hammer toe 610627158 Active 2018 Not Available [facility] 4 12:04:17 Dependen ce on suppleme ntal oxygen 50536677423 7 Active 2018 Not Available [facility] 4 12:04:18 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 2018 Not Available [facility] 4 12:04:17 Obesity 948511740 Active Not Available [facility] 4 12:04:17 Depressi ve disorder 70025700 Active Not Available [facility] 4 12:04:17 Osteopen ia Active Not Available [facility] 4 12:04:18 Hyperten sive disorder 27256311 Active Not Available [facility] 4 12:04:17 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 l) 748788032 Active Not Available [facility] 4 12:04:17 Dyspnea on exertion 18357612 Active 2004 Not Available [facility] 4 12:04:18 Occult blood detected in feces 08686100 Completed 201903/08/2021 Gamaliel Quinonez MD [address] [facility] [address], [place], [address] , [facility] 09:35:02 Cyst of kidney 250064015 Active 2019 right Not Available [facility] 4 12:04:18 Recurren t major depressi on in partial remissio n 09228544 Active 2019 Not Available [facility] 4 12:04:17 Centriac inar emphysem a 49714955 Active 2020 Not Available [facility] 4 12:04:18 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 Not Available [facility] 4 12:04:17 Levoscol iosis 31863067249 4102 Active 2021 moderate /severe Not Available [facility] 4 12:04:18 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 48750334029 083497 Active 2021 Not Available [facility] 4 12:04:17 Spinal stenosis of lumbar region 53062464 Active 2021 Not Available [facility] 4 12:04:17 Iron deficien cy anemia 80077636 Completed 202203/16/2023 Gamaliel Quinonez MD [address] [address], [place], [address] , [facility] 14:58:47 Irritabl e bowel syndrome with diarrhea 531812510 Active 2022 Not Available [facility] 4 12:04:17 Vitamin D deficien cy 06801319 Active 2023 Gamaliel Quinonez MD [address] [facility] [address], [place], [address] , [facility] 07:12:23 Lumbar radiculo shruthi 677596583 Active 2023 Brenna Juan [facility] [address] [address], [place], [address] , [facility] 14:24:55 Hypokale josé 11694544 Completed 202310/14/2024 Gamaliel Quinonez MD [address] [address], [place], [address] , [facility] 16:59:06 Intersti tial lung disease 850399449 Active 2023 Gamaliel Quinonez MD [address] [facility] [address], [place], [address] , [facility] 12:52:58 Drug-ind uced hypokale josé 330931705 Active 2023 Gamaliel Quinonez MD [address] [address], [address] , [facility] 16:24:43 Compress ion fracture of lumbar spine 952824284 Completed 202310/14/2024 L1 Gamaliel Quinonez MD [address] [address], [place], [address] , [facility] 15:23:24 24 Hour ECG Active 2023 rare PACs, occ PVCs Gamaliel Quinonez MD [address] [facility] [address], [place], [address] , [facility] 4 15:15:[address] Active 2021 no PFO, <50%CAD Gamaliel Quinonez MD [address], [place], [address] , [facility] 15:18:03 Anemia 422262752 Active Gamaliel Quinonez MD [address], [place], [address] , [facility] 06:26:16 Multiple pelvic fracture s 727433595 Active 2023 right superior /inferio r pubic rami Gamaliel Quinonez MD [address], [place], [address] , [facility] 06:27:28 Antibiot ic prophyla xis indicate d 765926300 Active 2024 Gamaliel Quinonez MD [address], [place], [address] , [facility] 10:51:40 Body mass index 25-29 - overweig ht 019417258 Active 2024 Gamaliel Quinonez MD [address], [place], [address] , [facility] 17:00:12 Long-ter m current use of anticoag ulant 238753902 Active 2024 Gamaliel Quinonez MD [address], [place], [address] , [facility] 17:00:20 History of aortic valve replacem ent 49339368638 00 Active 2023 transcat heter AVR Gamaliel Quinonez MD [address], [place], [address] , [facility] 17:04:46 Left lower quadrant pain 978681805 Completed 201202/18/2014 IMPRESSI ON: SYMPTOMS , RISK FACTORS AND EXAM FINDINGS ARE C/W DIVERTIC ULITIS. WILL CHECK LABS AND IMAGING TO SEE IF CONFIRMS . WILL TRY HOLDING ABX UNTIL CT DONE BUT IF LEUKOCYT OSIS PRESENT OR SYMPTOMS WORSEN WILL START EMPIRICA LLY.; RECORDED 03/01/20 13 11:34AM BY FARIBA ALVAREZ MA, TAISHAATI ON/BROOK Quinonez MD [address], [place], [address] , [facility] 15:29:09 Alcohol abuse [id number] Completed 201302/24/2014 RECORDED 11/01/19 14 2:35PM BY FARIBA ALVAREZ MA, OFFICE VISIT Gamaliel Quinonez MD [address], [place], [address] , [facility] 15:29:08 Alcohol abuse [id number] Completed 201202/18/2014 RECORDED 07/19/20 13 3:15PM BY FARIBA ALVAREZ MA, TAISHAATI ON/BROOK DUM Gamaliel Quinonez MD [address], [place], [address] , [facility] 15:29:08 Anemia [id number] Completed 03/27/2017 Gamaliel Quinonez MD [address], [place], [address] , [facility] 06:26:16 Anxiety state [id number] Completed 08/11/2015 Gamaliel Quinonez MD [address], [place], [address] , [facility] 15:29:08 Arthropa thy 133918001 Completed 04/02/2018 Gamaliel Quinonez MD [address] [facility] [address], [place], [address] , [facility] 13:40:52 Tobacco user [id number] Completed 201202/18/2014 RECORDED 03/01/20 13 11:34AM BY FARIBA ALVAREZ MA, TAIHSAATI ON/ADDEN DUM Gamaliel Quinonez MD [address] [facility] [address], [place], [address] , [facility] 15:29:08 Benign essentia l hyperten cristela [id number] Active Not Available [facility] 4 12:04:17 Pain in limb 80664836 Completed 201102/18/2014 IMPRESSI ON: SEEMS LIKE MUSCLE PAIN BUT I WOULD LIKE TO RULE OUT ANY BONE ABNORMAL ITY. CHECK LABS SCREENIN G FOR MYOSITIS . OPIATE HAS HELPED SO WILL PRESCRIB E BUT IF LABS/XRA Y ARE NORMAL AND SYMPTOMS PERSIST THEN PMR CONSULT TO R/O COMPARTM ENT SYNDROME WOULD BE WARRANTE D.; RECORDED 06/07/20 12 1:22PM BY FARIBA ALVAREZ MA, KARSON ON/TAMIKOEN DUM Gamaliel Quinonez MD [address] [facility] [address], [place], [address] , [facility] 15:29:09 Screenin g for malignan t neoplasm of breast Completed 201102/18/2014 RECORDED 03/26/20 12 1:01PM BY FARIBA ALVAREZ MA, KARSON ON/BROOK Quinonez MD [address] [facility] [address], [place], [address] , [facility] 15:29:09 Cataract [id number] Completed 07/18/2019 Gamaliel Quinonez MD [address] [facility] [address], [place], [address] , [facility] 13:43:36 Screenin g for malignan t neoplasm of colon Completed 201202/18/2014 RECORDED 09/21/19 13 11:26AM BY FARIBA ALVAREZ MA, ANNOTATI ON/ADDEN DUM Gamaliel Quinonez MD [address] [address], [place], [address] , [facility] 15:29:09 Cough [id number] Completed 201301/23/2015 IMPRESSI ON: NOT TYPICAL FOR PNEUMONI A BUT POSSIBLE . WILL COVER EMPIRICA LLY FOR CA BACTERIA L PROCESS. AND SEE IF STEROID AFFORDS SOME RELIEF.; RECORDED 02/07/20 14 3:40PM BY RAMA VENTURA MA, OFFICE VISIT Gamaliel Quinonez MD [address] [address], [place], [address] , [facility] 15:29:09 Depressi ve disorder 57261512 Completed 201305/19/2015 IMPRESSI ON: WELL CONTROLL ED, DID NOT TOLERATE DOSE WEAN IN THE RECENT PAST. WILL CONTINUE CURRENT REGIMEN. ; RECORDED 02/07/20 14 3:40PM BY RAMA VENTURA MA, OFFICE VISIT Gamaliel Quinonez MD [address] [address], [place], [address] , [facility] 15:29:08 History of depressi on [id number] Completed 201305/21/2014 RECORDED 11/01/19 14 2:35PM BY FARIBA ALVAREZ MA, OFFICE VISIT Gamaliel Quinonez MD [address] [address], [place], [address] , [facility] 15:29:09 Divertic ular disease of colon 144524043 Active Not Available [facility] 4 12:04:17 Dysuria 50935588 Completed 201102/18/2014 IMPRESSI ON: UA NL, POSSIBLE THAT SYMPTOMS ARE FROM A NOW TREATED VAGINITI S. CALL IF PERSISTA NT/WORSE .; RECORDED 07/05/20 12 4:29PM BY FARIBA ALVAREZ MA, KARSON ON/BROOK Quinonez MD [address] [facility] [address], [place], [address] , [facility] 15:29:09 Emphysem a Active Not Available [facility] 4 12:04:18 Follow-u p encounte r Completed 201202/18/2014 RECORDED 03/01/20 13 11:34AM BY FARIBA ALVAREZ MA, ANNOTATI ON/BROOK Quinonez MD [address] [facility] [address], [place], [address] , [facility] 15:29:09 Malaise and fatigue 754420559 Completed 201301/23/2015 IMPRESSI ON: SEEMED TO WORSEN WITH LEXAPRO DOSE INCREASE WILL SEE IF GOING BACK TO PRIOR DOSE HELPS AT ALL.; RECORDED 02/07/20 14 3:40PM BY RAMA VENTURA MA, OFFICE VISIT Gamaliel Quinonez MD [address] [facility] [address], [place], [address] , [facility] 15:29:09 Influenz a vaccine needed [id number] 06 Completed 201102/18/2014 RECORDED 03/26/20 12 1:41PM BY GAMALIEL Pacheco MD, OFFICE VISIT Gamaliel Quinonez MD [address] [facility] [address], [place], [address] , [facility] 15:29:09 Ostium secundum type atrial septal defect 763257426 Active STORY: LVEF: 55-60% 12/2013, LARGER RIGHT TO LEFT SHUNTING ON BUBBLE STUDY 2006 Not Available [facility] 4 12:04:17 Gastroes ophageal reflux disease 099610666 Active Not Available [facility] 4 12:04:17 Adult health examinat ion Completed 201202/18/2014 IMPRESSI ON: WILL UPDATE IMMUNIZA TION STATUS AND SCREEN BASED ON RISK FACTORS. REGULAR DENTAL CARE AND SEATBELT USE ADVISED. DISTRACT ED DRIVING LEYDA MONET OPY LATER THIS MONTH; RECORDED 09/21/19 13 11:26AM BY FARIBA ALVAREZ MA, TAISHAATI ON/BROOK Quinonez MD [address] [address], [place], [address] , [facility] 15:29:09 Diaphrag matic hernia 73668713 Completed 03/02/2016 Gamaliel Quinonez MD [address] [address], [place], [address] , [facility] 15:29:09 Essentia l hyperten cristela 48115381 Completed 03/27/2017 Gamaliel Quinonez MD [address] [facility] [address], [place], [address] , [facility] 14:12:16 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 WILL CONTINUE .; RECORDED 07/19/20 13 3:16PM BY FARIBA ALVAREZ MA, ANNOTATI ON/BROOK Quinonez MD [address] [facility] [address], [place], [address] , [facility] 14:12:16 Renewal of prescrip tion Completed 201102/18/2014 RECORDED 07/05/20 12 4:29PM BY FARIBA ALVAREZ MA, ANNOTATI ON/ADDEN DUM Gamaliel Quinonez MD [address], [place], [address] , [facility] 15:29:09 Obesity 378184727 Completed 03/02/2016 Gamaliel Quinonez MD [address] [facility] [address], [place], [address] , [facility] 15:29:09 Osteoart hritis 334898995 Active Heri Not Available [facility] 4 12:04:17 Disorder of bone and articula r cartilag e 936506061 Completed 04/02/2018 Gamaliel Quinonez MD [address] [facility] [address], [place], [address] , [facility] 13:40:43 Multiple joint pain 96624092 Completed 201202/18/2014 IMPRESSI ON: SUSPECT INFECTIO N MAY BE THE ISSUE SUPERIMP OSED ON ARTHRITI S. WILL FOLLOW WITH TREATMEN T.; RECORDED 03/01/20 13 11:34AM BY FARIBA ALVAREZ MA, ANNOTATI ON/ADDEN DUM Gamaliel Quinonez MD [address] [facility] [address], [place], [address] , [facility] 15:29:09 Screenin g for malignan t neoplasm of cervix Completed 201102/18/2014 RECORDED 03/26/20 12 1:01PM BY FRAIBA ALVAREZ MA, ANNOTATI ON/ADDEN DUM Gamaliel Quinonez MD [address] [facility] [address], [place], [address] , [facility] 15:29:09 Herpes zoster 7873974 Completed 201302/24/2014 RECORDED 11/01/19 14 2:35PM BY FARIBA ALVAREZ MA, OFFICE VISIT Gamaliel Quinonez MD [address] [facility] [address], [place], [address] , [facility] 15:29:08 Shoulder joint pain 263548133 Completed 201202/18/2014 IMPRESSI ON: LIKEY MUSCLE STRAIN, VS BURSITIS VS ARTHRITI S VS ROTATOR CUFF INJURY. XRAY UNREMARA KBEL. HAS ORTHO APPT NEXT WEEK.; RECORDED 03/01/20 13 11:34AM BY FARIBA ALVAREZ MA, ANNOTATI ON/ADDEN DUM Gamaliel Quinonez MD [address] [address], [place], [address] , [facility] 15:29:09 Primary malignan t neoplasm of skin 92689798 Completed 04/02/2018 Gamaliel Quinonez MD [address] [address], [place], [address] , [facility] 13:42:48 Sleep apnea 32969300 Completed 04/02/2018 Gamaliel Quinonez MD [address] [address], [place], [address] , [facility] 13:43:46 Administ ration of diphther ia and tetanus vaccine Completed 201202/18/2014 RECORDED 09/21/19 13 11:26AM BY FARIBA ALVAREZ MA, ANNOTATI ON/ADDEN DUM Gamaliel Quinonez MD [address] [address], [address] , [facility] 15:29:09 Disorder of function of stomach 075920951 Completed 03/27/2017 Gamaliel Quinonez MD [address] [address], [address] , [facility] 14:13:11 Administ ration of viral vaccine Completed 201301/23/2015 RECORDED 11/01/19 14 2:35PM BY FARIBA ALVAREZ MA, OFFICE VISIT Gamaliel Quinonez MD [address] [address], [address] , [facility] 15:29:09 Problem Notes None recorded. Procedures Surgical History Date Name Laterality Status Provider Name and Address Organization Details Recorded Time 09/26/19 25 echocardiography completed Gamaliel Quinonez MD [address] [address], [place], [address], [facility] 09/30/2024 06:21:49 08/05/20 24 transcatheter aortic valve implantation completed Gamaliel Quinonez MD [address] [address], [place], [address], [facility]/06/2024 21:31:56 04/15/20 24 echocardiography completed Gamaliel Quinonez MD [address], [address], [facility] 04/17/2024 15:14:27 06/27/20 22 Echo transthoracic completed Gamaliel Quinonez MD [address], [address], [facility] 11/29/2023 22:01:40 02/02/20 21 Echo transthoracic completed Gamaliel Quinonez MD [address], [address], [facility] 03/28/2021 21:52:12 01/19/20 21 radionuclide imaging of perfusion of myocardium under exercise stress completed Gamaliel Quinonez MD [address], [address], [facility] 03/28/2021 21:50:55 07/20/20 20 Six-Item Cognitive Test completed Ninfa Baca MA [facility] 07/20/2020 13:18:10 10/15/19 20 shoulder injection completed Gamaliel Quinonez MD [address], [address], [facility] 10/15/2019 21:49:07 07/18/20 19 Mini-Cog Test completed Evie wallace MA [facility] 07/18/2019 13:19:10 02/13/20 19 Echo transthoracic completed Gamaliel Quinonez MD [address], [address], [facility] 04/04/2019 13:41:26 11/07/19 19 Most Recent Bone Density completed Lesly Ocampo [facility] 08/31/2023 14:27:59 11/07/19 19 Dxa bone density jes vrt fx completed Pretty Litzy [facility] 11/13/2018 10:06:52 04/02/20 18 Mini-Cog Test completed Fariba Alvarez MA [facility] 04/02/2018 13:24:41 12/05/19 18 Most Recent Mammogram completed Prettyshanique Mcghee [facility] 12/05/2017 09:12:21 12/05/19 18 Mammogram screening completed Prettyshanique Mcghee [facility] 12/05/2017 09:12:01 03/27/20 17 Fall Risk Assessment completed Fariba Alvarez MA [facility] 03/27/2017 13:43:45 03/27/20 17 Mini-Cog Test completed Fariba Alvarez MA [facility] 03/27/2017 13:43:57 05/05/20 16 Egd diagnostic brush wash completed Gamaliel Quinonez MD [address], [address], [facility] 05/23/2016 05:52:40 05/04/20 16 Date of Last Colonoscopy completed Fariba Alvarez MA [facility] 03/27/2017 13:39:32 05/04/20 16 Egd diagnostic brush wash completed Gamaliel Quinonez MD [address], [address], [facility] 05/04/2016 18:43:17 05/04/20 16 Colonoscopy completed Gamaliel Quinonez MD [address] [place], [address], [facility] 06/02/2016 21:54:24 03/02/20 16 Fall Risk Assessment completed Fariba Alvarez [place] [facility] 03/02/2016 14:56:53 03/02/20 16 Mini-Cog Test completed Fariba Alvarez MA [facility] 03/02/2016 14:57:17 03/02/20 16 Advanced Care Planning completed Fariba Alvarez MA [facility] 03/02/2016 14:46:22 02/09/20 16 Laparoscopy fundoplasty completed Gamaliel Quinonez MD [address] [facility] [address] [facility], [place], [address], [facility] 03/17/2016 13:53:02 08/10/19 16 Echo Transthoracic completed Gamaliel Quinonez MD [address] [address], [place], [address], [facility] 08/18/2015 11:47:17 11/25/19 15 Bronchoscopy completed Gamaliel Quinonez MD [address] [facility] [address] [facility], [place], [address], [facility] 11/28/2014 17:01:13 09/18/19 15 Fall Risk Assessment completed Fariba Alvarez MA [facility] 09/18/2014 14:05:48 09/18/19 15 Mini-Cog Test completed Fariba Alvarez MA [facility] 09/18/2014 14:05:48 12/21/19 14 Echo Transthoracic completed Gamaliel Quinonez MD [address] [facility] [address] [facility], [place], [address], [facility] 09/18/2014 14:19:06 04/28/20 11 Date of Last Pap Smear completed Fariba Alvarez MA [facility] 09/18/2014 14:03:56 01/05/19 98 Cataract Surgery completed Fariba Alvarez MA [facility] 08/10/2021 13:07:59 02/04/19 95 Joint Replacement completed Fariba Alvarez MA [facility] 08/10/2021 13:07:59 12/05/18 67 Cholecystectomy completed Fariba Alvarez MA [facility] 08/10/2021 13:07:59 12/05/18 67 Appendectomy completed Fariba Alvarez MA [facility] 08/10/2021 13:07:59 Arthroscopic Surgery completed Lurdes Ch CPPM [facility] 04/09/2020 14:04:58 Cataract Surgery completed Fariba Alvarez MA [facility] 08/10/2021 13:07:59 Appendectomy completed Fariba Alvarez [facility] 08/10/2021 13:07:58 Imaging Results None recorded. Procedure Notes None recorded. Medical Equipment None Reported. Allergies Allergen ID Allergen Name Allergen Category Reaction Reaction Severity Criticality Documentation Date Start Date Code Code System Note Provider Name and Address Organization Details Recorded Time 61037 lovastati n medicatio n other Not available Not available 05/21/2014 6472 RxNorm Not Available [facility] 4 12:04:14 67108 Product containin g penicilli n (product) medicatio n hives Not available Not available 06/23/2015 99078 8001 SNOMED Not Available [facility] 4 12:04:14 75862 atorvasta tin medicatio n myalgias (muscle pain) Not available Not available 02/03/2016 46871 RxNorm Not Available [facility] 4 12:04:14 82572 pravastat in medicatio n myalgias (muscle pain) moderate Not available 06/27/2016 74573 RxNorm Not Available [facility] 4 12:04:14 32334 budesonid e medicatio n Not available Not available Not available 08/17/2017 59216 RxNorm Not Available [facility] 4 12:04:14 70315 clopidogr el medicatio n Not available Not available Not available 12/06/2019 69426 RxNorm Not Available [facility] 4 12:04:14 4051 clopidogr el bisulfate medicatio n other Not available Not available 02/18/20142013 92453 1 RxNorm Not Available [facility] 4 12:04:14 4052 Vaccine product containin g only Influenza virus antigen (medicina l product) medicatio n rash Not available Not available 02/18/20142013 62333 78540 105 SNOMED Nahomi Gutierrez, DURAN [facility], [facility] 4 15:24:33 Medications Name Sig Start Date Stop Date Status Note LastModified by Organization Details LastModified Time Prescript ion - Clarifica tion active MedAlert /Zolpide m Not Available Not Available Not Available Prescript ion - Prior Authoriza tion Request 01/15 completed Not Available Not Available Not Available correspon dence - pharmacy 06/11 completed Not Available Not Available Not Available fluconazo le 100 mg tablet 04/02 completed Not Available Not Available Not Available clotrimaz ole 10 mg rickey Take 1 tablet 5 times a day by oral route for 14 days. 04/02 completed Not Available Not Available Not Available Qvar 80 mcg/actua tion Metered Aerosol oral inhaler TWO TIMES DAILY active RECORDED 11/01/19 14 3:12PM BY GAMALIEL Pacheco MD, ANNOTATI ON/ADDEN DUM; Not Available Not Available Not Available nystatin 100,000 unit/mL oral suspensio n TAKE 5 ML 4 TIMES A DAY BY ORAL ROUTE SWISH AND SPIT FOR 14 DAYS. 01/15 completed Not Available Not Available Not Available prednison e 10 mg tablet TAKE 2 TABS DAILY X 7 DAYS, THEN 1 TAB DAILY X 7 DAYS 07/08 completed Not Available Not Available Not Available doxycycli ne hyclate 100 mg capsule TAKE 1 CAPSULE BY MOUTH TWICE A DAY FOR 10 DAYS 03/16 completed Not Available Not Available Not Available clindamyc in HCl 300 mg capsule TAKE 2 CAPSULES 1 HOUR PRIOR TO APPOINTM ENT active Not Available Not Available No t Available albuterol sulfate 2.5 mg/3 mL (0.083 %) solution for nebulizat ion Inhale 1 mL every 6 hours by inhalati on route for 30 days. active Not Available Not Available No t Available ciproflox acin 750 mg tablet TWO TIMES DAILY 11/19 completed RECORDED 11/23/19 13 10:18AM BY GAMALIEL Pacheco MD, MEDICATI ON AUTO-BEVERLEY CTIVATIO N; Not Available Not Available Not Available trazodone 50 mg tablet Take 1 tablet every day by oral route as directed . 04/04 completed Not Available Not Available Not Available atorvasta tin 10 mg tablet TAKE 1 TABLET BY MOUTH EVERY DAY 02/02 completed myalgia Not Available Not Available Not Available azithromy annabelle 250 mg tablet TAKE 2 TABLETS (500 MG) BY ORAL ROUTE ONCE DAILY FOR 1 DAY THEN 1 TABLET (250 MG) BY ORAL ROUTE ONCE DAILY FOR 4 DAYS 12/05 completed Not Available Not Available Not Available pravastat in 40 mg tablet Take 1 tablet every day by oral route for 30 days. 06/27 completed Not Available Not Available Not Available fluconazo le 150 mg tablet Take 1 tablet every day by oral route as directed for yeast vaginiti s. May repeat after 72 hours as needed. for 1 day. 04/02 completed Not Available Not Available Not Available valacyclo vir 1 gram tablet orally 01/11 completed Not Available Not Available Not Available hydrocodo ne 5 mg-acetam inophen 325 mg tablet TAKE 1 TABLET BY MOUTH TWICE A DAY NEEDED FOR 7 DAYS 12/13 completed Not Available Not Available Not Available ondansetr on HCl 8 mg tablet Take 1 tablet every day by oral route as needed. 03/27 completed Not Available Not Available Not Available diltiazem CD 240 mg capsule,e xtended release 24 hr Take 1 capsule every day by oral route. 07/08 completed stopped due to hypotens ion Not Available Not Available Not Available prednison e 20 mg tablet TAKE 2 TABLETS EVERY DAY BY ORAL ROUTE WITH MEAL(S) FOR 5 DAYS. 11/15 completed Not Available Not Available Not Available clonazepa m 0.5 mg tablet TAKE 1 TABLET BY MOUTH EVERY DAY NEEDED FOR 10 DAYS active Not Available Not Available No t Available lovastati n 40 mg tablet Take by oral route for 30 days. active Not Available Not Available No t Available fluoroura cil 5 % topical cream PLEASE SEE ATTACHED FOR DETAILED DIRECTIO NS 09/28 completed Not Available Not Available Not Available moxifloxa annabelle 400 mg tablet TAKE 1 TABLET BY MOUTH EVERY DAY FOR 10 DAYS active Not Available Not Available No t Available clindamyc in HCl 150 mg capsule 1 po qid 02/03 completed Not Available Not Available Not Available Katiana Low Dose Aspirin 81 mg tablet,de layed release Take 1 tablet every day by oral route for 30 days. 03/26 completed Not Available Not Available Not Available warfarin 2.5 mg tablet Take 1 tablet every day by oral route as directed . 11/06 completed Not Available Not Available Not Available valsartan 80 mg tablet Take 1 tablet every day by oral route for 30 days. 11/16 completed Not Available Not Available Not Available meclizine 12.5 mg tablet Take 1 tablet 3 times a day by oral route as directed for 10 days. active Not Available Not Available No t Available metronida zole 500 mg tablet Take 1 tablet 3 times a day by oral route for 10 days. 04/27 completed Not Available Not Available Not Available ciproflox acin 500 mg tablet TAKE 1 TABLET BY MOUTH TWICE A DAY 08/29 completed Not Available Not Available Not Available sulfameth oxazole 800 mg-trimet hoprim 160 mg tablet Take 1 tablet twice a day by oral route for 7 days. 04/02 completed Not Available Not Available Not Available omeprazol e 40 mg capsule,d elayed release Take 1 capsule twice a day by oral route for 90 days. active Not Available Not Available No t Available lovastati n 10 mg tablet active Not Available Not Available Not Available doxycycli ne monohydra te 100 mg tablet TAKE 1 TABLET BY MOUTH TWICE A DAY FOR 14 DAYS 01/15 completed Not Available Not Available Not Available tramadol 50 mg tablet Take 1 tablet every 6 hours by oral route as needed for 7 days. 10/14 completed Not Available Not Available Not Available acetamino phen 500 mg tablet THREE TIMES DAILY, NEEDED 12/30 completed RECORDED 01/08/20 13 8:36AM BY GAMALIEL Pacheco MD, MEDICATI ON AUTO-BEVERLEY CTIVATIO N; Not Available Not Available Not Available carvedilo l 3.125 mg tablet Take 1 tablet twice a day by oral route for 30 days. 09/21 completed Not Available Not Available Not Available ondansetr on 8 mg disintegr ating tablet Place 1 tablet every day by translin gual route as needed for 30 days. 03/27 completed Not Available Not Available Not Available valsartan 80 mg-hydroc hlorothia zide 12.5 mg tablet TAKE 1 TABLET BY MOUTH EVERY DAY 10/12 completed Not Available Not Available Not Available ciclopiro x 8 % topical solution PLEASE SEE ATTACHED FOR DETAILED DIRECTIO NS 10/14 completed Not Available Not Available Not Available hydrocort isone 2.5 % topical cream with perineal applicato r APPLY 1 APPLICAT ION THREE TIMES A DAY TOPICALL Y NEEDED FOR 14 DAYS. active prn Not Available Not Available No t Available lorazepam 0.5 mg tablet TAKE 1 TABLET DAILY NEEDED active Not Available Not Available No t Available metoclopr amide 5 mg tablet TAKE 1 TABLET BY MOUTH TWICE A DAY 01/15 completed Not Available Not Available Not Available dicyclomi ne 20 mg tablet orally 01/11 completed Not Available Not Available Not Available meclizine 25 mg tablet Take 1 tablet 3 times a day by oral route for 10 days. 03/22 completed Not Available Not Available Not Available cephalexi n 500 mg capsule Take 1 capsule every 8 hours by oral route for 5 days. 07/18 completed Not Available Not Available Not Available ferrous sulfate 325 mg (65 mg iron) tablet TAKE 1 TABLET BY MOUTH EVERY DAY 2024 active Not Available Not Available Not Avai lable ranitidin e 150 mg tablet 150 mg by oral route. 07/18 completed switched to omeprazo le Not Available Not Available Not Available lidocaine 5 % topical patch APPLY ONE PATCH TOPICALL Y EVERY DAY NEEDED active Not Available Not Available No t Available polymyxin B sulfate 10,000 unit-trim ethoprim 1 mg/mL eye drops INSTILL 1 DROP INTO AFFECTED EYE 6 TIMES A DAY FOR 7 DAYS active Not Available Not Available No t Available warfarin 5 mg tablet TAKE 1 TABLET DAILY DIRECTED active Not Available Not Available No t Available metronida zole 0.75 % topical cream 08/10 completed Not Available Not Available Not Available Calcium-6 00 600 mg (as calcium carbonate 1,500 mg) tablet Take 1 tablet every day by oral route. 07/18 completed Not Available Not Available Not Available gabapenti n 300 mg capsule TAKE 1 CAPSULE BY MOUTH TWICE A DAY DIRECTED active Not Available Not Available No t Available omeprazol e 20 mg capsule,d elayed release TAKE 1 CAPSULE TWICE A DAY DIRECTED active Not Available Not Available No t Available budesonid e 0.5 mg/2 mL suspensio n for nebulizat ion 08/17 completed Not Available Not Available Not Available diltiazem CD 120 mg capsule,e xtended release 24 hr Take 1 capsule every day by oral route. 03/16 completed Not Available Not Available Not Available enoxapari n 150 mg/mL subcutane ous syringe 07/20 completed Not Available Not Available Not Available monteluka st 10 mg tablet active Not Available Not Available Not Available morphine ER 15 mg tablet,ex tended release DAILY NEEDED 02/24 completed Not Available Not Available Not Available calcium 500 mg (as calcium carbonate 1,250 mg) chewable tablet Take 1 tablet every day by oral route. active Not Available Not Available No t Available mupirocin 2 % topical ointment APPLY A SMALL AMOUNT TO AFFECTED AREA 3 TIMES A DAY active prn Not Available Not Available No t Available zolpidem 5 mg tablet TAKE 1 TABLET DAILY NEEDED active Not Available Not Available No t Available furosemid e 20 mg tablet TAKE 1 TABLET DAILY active Not Available Not Available No t Available levalbute rol 1.25 mg/3 mL solution for nebulizat ion 08/31 completed Not Available Not Available Not Available warfarin 1 mg tablet TAKE 1-2 TABLETS BY MOUTH DAILY DIRECTED BY PVCA active Not Available Not Available No t Available levofloxa annabelle 500 mg tablet active Not Available Not Available No t Available lovastati n 20 mg tablet Take 1 tablet every day by oral route. 07/21 completed Not Available Not Available Not Available zolpidem 10 mg tablet Take 1 tablet every day by oral route as needed. 08/20 completed 08/05/24 THIS WAS ON D/C SUMM Not Available Not Available Not Available methylpre dnisolone 4 mg tablets in a dose pack 6 day taper using Medrol dose pack 6 tabs po day 1 and decrease by 1 tab daily until finished 11/22 completed Not Available Not Available Not Available albuterol sulfate HFA 90 mcg/actua tion aerosol inhaler INHALE 2 PUFFS BY MOUTH EVERY 6 HOURS NEEDED FOR SHORTNES S OF BREATH OR WHEEZING FOR 30 DAYS active Not Available Not Available No t Available diltiazem 30 mg tablet Take 1 tablet every day by oral route. active Not Available Not Available No t Available ondansetr on 4 mg disintegr ating tablet DISSOLVE 1 TABLET ORALLY EVERY 8 HOURS NEEDED FOR NAUSEA AND VOMITING FOR 10 DAYS active Not Available Not Available No t Available fluticaso ne propionat e 50 mcg/actua tion nasal spray,jayro pension Inhale 1 spray every day by intranas al route. 02/24 completed Not Available Not Available Not Available doxycycli ne hyclate 100 mg tablet TAKE 1 TABLET BY MOUTH TWICE A DAY FOR 7 DAYS 03/22 completed Not Available Not Available Not Available dicyclomi ne 10 mg capsule 10 mg by oral route. 01/07 completed Not Available Not Available Not Available Calcium + D 600 mg-5 mcg (200 unit) tablet Take 1 tablet every day by oral route. 11/15 completed Not Available Not Available Not Available amoxicill in 875 mg-potass ium clavulana te 125 mg tablet 07/20 completed Not Available Not Available Not Available neomycin 3.5 mg/g-poly myxin B 10,000 unit/g-de xameth 0.1 % eye oint APPLY A SMALL AMOUNT ON EYELID TWICE A DAY 04/09 completed Not Available Not Available Not Available albuterol (refill) 90 mcg/actua tion aerosol inhaler EVERY FOUR HOURS, NEEDED 12/31 completed RECORDED 01/01/20 14 11:17AM BY RAMA VENTURA MA, TRANSITI ON OF CARE; Not Available Not Available Not Available enoxapari n 60 mg/0.6 mL subcutane ous syringe INJECT 0.6 ML (60 MG TOTAL) UNDER THE SKIN EVERY 12 (TWELVE) HOURS. 10/14 completed Not Available Not Available Not Available enoxapari n 80 mg/0.8 mL subcutane ous syringe INJECT 1 SYRINGE (80 MG) SUBCUTAN EOUSLY EVERY 12 HOURS 11/15 completed Not Available Not Available Not Available ciclopiro x 0.77 % topical cream Apply 1 applicat ion every day by topical route as needed for 30 days. 04/02 completed Not Available Not Available Not Available azithromy annabelle 500 mg tablet active Not Available Not Available No t Available escitalop jayro 10 mg tablet TAKE 1 TABLET DAILY active Not Available Not Available No t Available escitalop jayro 20 mg tablet TAKE 1 TABLET DAILY DIRECTED 10/14 completed Not Available Not Available Not Available coenzyme Q10 100 mg capsule DAILY active RECORDED 02/07/20 14 3:41PM BY RAMA VENTURA MA, OFFICE VISIT; Not Available Not Available Not Available cyclobenz aprine 5 mg tablet TAKE 1 TABLET BY MOUTH THREE TIMES A DAY NEEDED FOR 10 DAYS 01/15 completed Not Available Not Available Not Available Restasis 0.05 % eye drops in a dropperet te INSTILL 1 DROP INTO BOTH EYES TWICE A DAY 03/22 completed Not Available Not Available Not Available Zovirax 5 % topical cream active Not Available Not Available Not Available rosuvasta tin 5 mg tablet TAKE 1 TABLET DAILY active Not Available Not Available No t Available Klor-Con M20 mEq tablet,ex tended release Take 1 tablet every day by oral route for 5 days. 03/08 completed Not Available Not Available Not Available metoprolo l tartrate 25 mg tablet Take 1 tablet every day by oral route for 30 days. 08/17 completed Not Available Not Available Not Available Readi-Cat 2 2.1 % (w/v), 2.0 % (w/w) oral suspensio n 06/27 completed Not Available Not Available Not Available Flovent HFA 110 mcg/actua tion aerosol inhaler Inhale 2 puffs twice a day by inhalati on route. 11/15 completed Not Available Not Available Not Available chlorhexi dine gluconate 0.12 % mouthwash swish and spit 02/16 completed Not Available Not Available Not Available Vicodin Q4H PRN FOR PAIN active RECORDED 12/01/19 13 1:45PM BY GAMALIEL Pacheco MD, TAISHAATI ON/ADDEN DUM; Not Available Not Available Not Available Imodium A-D DAILY active RECORDED 03/26/20 12 1:03PM BY FARIBA ALVAREZ MA, ANNOTATI ON/ADDEN DUM; Not Available Not Available Not Available ferrous sulfate DAILY 12/30 completed RECORDED 01/08/20 13 8:36AM BY GAMALIEL Pacheco MD, MEDICATI ON AUTO-BEVERLEY CTIVATIO N; Not Available Not Available Not Available Multivita min With Minerals one tablet by mouth DAILY active Not Available Not Available No t Available Glucosami ne Chondroit in DAILY 09/13 completed RECORDED 09/13/19 14 1:15PM BY FARIBA ALVAREZ MA, OFFICE VISIT; Not Available Not Available Not Available hydrocodo ne 7.5 mg-acetam inophen 300 mg tablet Take 1 tablet twice a day by oral route as needed for 30 days. active Not Available Not Available No t Available Zostavax (PF) 19,400 unit/0.65 mL subcutane ous suspensio n CRISTIAN X 1 active Not Available Not Available Not Available hydrochlo rothiazid e 12.5 mg tablet DAILY 09/21 completed RECORDED 09/21/19 13 1:48PM BY GAMALIEL Pacheco MD, OFFICE VISIT; Not Available Not Available Not Available esomepraz ole magnesium DR 20 mg granules delayed release for susp DAILY active RECORDED 03/26/20 12 1:03PM BY FARIBA ALVAREZ MA, ANNOTATI ON/ADDEN DUM; Not Available Not Available Not Available peg 3350-elec trolytes 236 gram-22.7 4 gram-6.74 gram-5.86 gram solution 06/27 completed Not Available Not Available Not Available diclofena c 1 % topical gel Apply 4 g 4 times a day by topical route for 30 days. active Not Available Not Available No t Available Alvesco 160 mcg/actua tion aerosol inhaler 04/02 completed Not Available Not Available Not Available domperido ne 10 mg tablet Take 1 tablet 3 times a day by oral route. 06/16 completed Not Available Not Available Not Available Breo Ellipta 100 mcg-25 mcg/dose powder for inhalatio n Inhale 1 inhalati on every day by inhalati on route for 30 days. 04/02 completed Not Available Not Available Not Available potassium chloride ER 20 mEq tablet,ex tended release TAKE 1 TABLET BY MOUTH EVERY DAY active Not Available Not Available No t Available Anoro Ellipta 62.5 mcg-25 mcg/actua tion powder for inhalatio n INHALE 1 PUFF DAILY FOR 30 DAYS active Not Available Not Available No t Available glucosam 500 mg-chondr oit 66.7 mg-msm 500 mg-boron 2 mg-hyalur o tablet Take 1 tablet every day by oral route. 02/16 completed Not Available Not Available Not Available Imodium A-D 2 mg capsule Take 1 capsule every day by oral route as needed. active Not Available Not Available No t Available Trelegy Ellipta 100 mcg-62.5 mcg-25 mcg powder for inhalatio n Inhale 1 puff every day by inhalati on route for 90 days. 04/02 completed Not Available Not Available Not Available Shingrix (PF) 50 mcg/0.5 mL intramusc ular suspensio n, kit PHARMACY ADMINIST ERED 07/20 completed Not Available Not Available Not Available Paxlovid 300 mg (150 mg x 2)-100 mg tablets in a dose pack TAKE 3 TABLETS BY MOUTH TWICE A DAY DIRECTED FOR 5 DAYS 10/23 completed Not Available Not Available Not Available Vitals Date Recorded Body height Body mass index (BMI) Body weight Heart rate Body temperature Oxygen saturation Oxygen saturation in Arterial blood by Pulse oximetry Systolic blood pressure Diastolic blood pressure Provider Name and Address Organization Details Last Updated DateTime 5 151.13 cm 25.7 kg/m2 59107.8 2 g 81 /min 98.1 [degF] 95 % 95 % 122 mm[Hg] 60 mm[Hg] Lesly Tyler [facility] 15:06:05 Social History Question Answer Notes LastModified by Organizat ion Details LastModified Time Tobacco Smoking Status Former Smoker 1988 [facility] 10/12/2024 08:41:59 Do You Have An Advance Directive? Yes HCP/ -Jonas ray And Son- Alex Chandra And Genoveva Information not available 06/09/2022 What Is Your Level Of Alcohol Consumption? None Quit 2007 [id number] Information not available 06/09/2020 Is Blood Transfusion Acceptable In An Emergency? Yes [id number] Information not available 06/09/2020 What Is Your Level Of Caffeine Consumption? Moderate 1 Cup Of Coffee Daily [id number] Information not available 06/09/2020 How Much Tobacco Do You Chew? None [id number] Information not available 06/09/2020 Are You Currently Employed? No Retired [id number] Information not available 06/09/2020 Are You Deaf Or Do You Have Serious Difficulty Hearing? No Information not available 06/09/2022 What Type Of Diet Are You Following? REGULAR Information not available 08/10/2021 Which Illicit Or Recreational Drugs Have You Used? None [id number] Information not available 06/09/2020 Do You Or Have You Ever Used E-cigarettes Or Vape? 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 16+yearssince lastcigarette [id number] Information not available 07/20/2020 Live Alone Or With Others? With Others (Satinder) Information not available 06/09/2022 Do You Take Precautions To Prevent Distracted Driving? Yes Information not available 03/02/2016 How Often Do You Need To Have Someone Help You When You Read Instructions, Pamphlets, Or Other Written Material From Your Doctor Or Pharmacy? Never Information not available 03/02/2016 Have You Served In The ? Yes Spouse Information not available 04/02/2018 Have You Or Anyone In Your Household Had Any Of The Following Symptoms In The Last 14 Days: Sore Throat, Cough, Chills, Body Aches For Unknown Reasons, Shortness Of Breath For Unknown Reasons, Loss Of Smell, Loss Of Taste, Fever At Or Greater Than 100 Degrees Fahrenheit? No [email or web address] Information not available 02/04/2020 Are You Or Anyone In Your Household A Health Care Provider Or Emergency Responder? No [email or web address] Information not available 02/04/2020 To The Best Of Your Knowledge Have You Been In Close Proximity To Any Individual Who Tested Positive For COVID-19? Yes Information not available 08/10/2021 *AWV ONLY* Are You Presently Prescribed Opioid Medication By PCP Or Specialist? If YES -Provider Assess The Benefit For Other, Non-opioid Pain Therapies Instead, Even If The Patient Does Not Have OUD But Is Possibly At Risk. No Information not available 08/10/2021 Have You Recently Traveled To A [place] [id number] High Risk Area Or Gathering In The Last 10 Days? No Information not available 11/17/2020 What Was The Date Of Your Most Recent Tobacco Screening? 04/12/2024 [email or web address] Information not available 04/12/2024 How Many Children Do You Have? 4 1 Son A 3 Dtr [id number] Information not available 06/09/2020 What Is Your Current Pack Years? 30ormorepacky ears Information not available 06/09/2022 Do You Use Protection During Sex? No Information not available 08/10/2021 Difficulty Reading? No Information not available 06/09/2022 Do You Use Your Seat Belt Or Car Seat Routinely? Yes Information not available 08/10/2021 Seat Belts Used Routinely Yes Information not available 06/09/2022 Are You Sexually Active? Yes Information not available 08/10/2021 Smoke Alarm In Home Yes Information not available 06/09/2022 Do You Have Smoke And Carbon Monoxide Detectors In Your Home? Yes Information not available 08/10/2021 At What Age Did You [facility] Smoking Tobacco? 16 1954 [facility] Information not available 10/12/2024 Are You Passively Exposed To Smoke? No Information not available 03/02/2016 Do You Or Have You Ever Used Smokeless Tobacco? Never Used Smokeless Tobacco [id number] Information not available 06/09/2020 How Much Tobacco Do You Smoke? 2 PPD [id number] Information not available 06/09/2020 Do You Use Any Illicit Or Recreational Drugs? No Information not available 06/09/2022 Do You Use Sunscreen Routinely? No Information not available 08/10/2021 How Many Years Have You Smoked Tobacco? 36 [id number] Information not available 06/09/2020 Difficulty Watching TV? No Information not available 06/09/2022 Do You Or Have You Ever Used Any Other Forms Of Tobacco Or Nicotine? No Information not available 06/09/2022 Sex: Unknown Functional Status Question Answer Note LastModified by Organizat ion Details LastModified Time Do you have difficulty walking or climbing stairs? No Information not available 06/09/2022 Difficulty driving at night? Yes Information not available 06/09/2022 Are you able to walk? YESASSIST Walker Information not available 10/14/2024 Do you have difficulty doing errands alone? No Information not available 06/09/2022 Are you able to care for yourself? Yes [id number] Information not available 06/09/2020 Do you have difficulty dressing or bathing? No Information not available 06/09/2022 What is your exercise level? None chair exercises and enjoys crocheting Information not available 10/14/2024 Mental Status Question Answer Note LastModified by Organization D etails LastModified Time Do you have difficulty concentrating, remembering or making decisions? No Information no t available 06/09/2022 Family History Relationship Description Onset Age of this Age Resolved Age Notes LastModified by Organization Details LastModified Time Sister Malignant tumor of breast abolcun Not available 2021 13:07:40 Sister Chronic obstructive pulmonary disease abolcun Not available 2021 13:07:40 Mother Hypertensive disorder awychowski Not available 03/08 10:53:26 Mother Anemia abolcun Not available 13:07:40 Mother Arthritis abolcun Not available 08/10/2021 13:07:40 Father Heart disease awychowski Not available 03/08 10:53:26 Father Hypertensive disorder awychowski Not available 03/08 10:53:26 Sister Malignant lymphoma brain Not available 2021 15:39:37 Son Well adult Not available 06/09/2022 15:39:37 Unspecified Relation Allergy abolcun Not available 13:07:40 Paternal Aunt Alcohol abuse abolcun Not available 2021 13:07:40 Medical History Condition Response Other N Gout N Blood Diseases N Kidney Stones N Hyperthyroidism N Breast Cancer N Hypothyroidism N Lung Disease N Depression Y COPD Y Defects or Inherited Disease N Anesthesia Complications N Headaches/Migraines N Varicose Veins N Anxiety Disorder N Obesity N Vision or Eye Problems N Arthritis N Head Injury/Concussion N Infertility N Polyps N Congenital Anomalies N Acid Reflux (GERD) N Cancer N Stroke N ADHD N Endometriosis N High Cholesterol Y Liver Disease N Fibromyalgia N Kidney Disease N Heart Problems N Ear or Hearing Problems N Hospitalizations N Thyroid Problems N GI Problems N Acne N Eating Disorder N Skin Problems N Anemia Y Constipation N Bladder Problems N Mental Illness N Diabetes N Ovarian Cancer N Blood Transfusions N Seizures/Epilepsy N Tuberculosis N AIDS/HIV N Congestive Heart Failure (CHF) N Eczema N Abuse/Domestic Violence N Diverticulitis N Asthma N Allergies N Reflux/GERD N Hepatitis N Pulmonary Embolism N Hypertension Y Chicken Pox N Autism Spectrum Disorder (ASD) N Osteoporosis N Gynecological History Statement/Question Response Date of Last Pap Smear 04/28/2011 Date of Last Colonoscopy 05/04/2016 Most Recent Mammogram 12/04/2017 Most Recent Bone Density 11/06/2018 Obstetrics History GPAL:G 0 P 0 0 0 0 Immunizations Vaccine Type Date Status Note Provider Nam e and Address Organization Details Recorded Time Influenza, split virus, quadrivalent, preservative 6 completed Not Available [facility] 08/31/2023 12:04:19 Influenza, split virus, quadrivalent, preservative 9 completed Not Available [facility] 08/31/2023 12:04:19 influenza, whole 6 completed Not Available [facility] 08/31/2023 12:04:19 influenza, whole 7 completed Not Available [facility] 08/31/2023 12:04:19 zoster recombinant 0 completed Not Available [facility] 08/31/2023 12:04:19 zoster recombinant 0 completed Not Available [facility] 08/31/2023 12:04:19 COVID-19, mRNA, LNP-S, PF, 30 mcg/0.3 mL dose 1 completed Not Available [facility] 08/31/2023 12:04:19 Influenza, adjuvanted, quadrivalent, PF 1 completed Not Available [facility] 08/31/2023 12:04:19 COVID-19, mRNA, LNP-S, PF, 30 mcg/0.3 mL dose 1 completed Not Available [facility] 08/31/2023 12:04:19 Pneumococcal conjugate PCV 13 4 completed Not Available [facility] 08/31/2023 12:04:19 COVID-19, mRNA, LNP-S, PF, 30 mcg/0.3 mL dose 1 completed Not Available [facility] 08/31/2023 12:04:19 zoster live 4 completed Not Available [facility] 08/31/2023 12:04:19 zoster recombinant 0 completed MEMO Kenney, [facility] 08/10/2021 13:10:45 zoster recombinant 0 completed MEMO Kenney, [facility] 08/10/2021 13:11:01 COVID-19, mRNA, LNP-S, PF, 30 mcg/0.3 mL dose, francois-sucrose 2 completed Not Available [facility] 08/31/2023 12:04:19 Influenza, high-dose, trivalent, PF 8 completed Not Available [facility] 08/31/2023 12:04:19 Influenza, high-dose, quadrivalent, PF 0 completed Not Available [facility] 08/31/2023 12:04:19 Influenza, split virus, trivalent, PF 4 completed Not Available [facility] 08/31/2023 12:04:19 Pneumococcal conjugate PCV 13 6 completed Not Available [facility] 08/31/2023 12:04:19 Influenza, high-dose, trivalent, PF 5 completed Not Available [facility] 08/31/2023 12:04:19 Influenza, high-dose, trivalent, PF 7 completed Not Available [facility] 08/31/2023 12:04:19 Influenza, high-dose, quadrivalent, PF 2 completed [facility] 12:04:19 Influenza, high-dose, quadrivalent, PF 3 completed MEMO Morton, [facility] 08/31/2023 14:19:14 RSV, recombinant, protein subunit RSVpreF, adjuvant reconstituted, 0.5 mL, PF 3 completed MEMO Morton, [facility] 08/31/2023 14:19:14 COVID-19, mRNA, LNP-S, PF, francois-sucrose, 30 mcg/0.3 mL 3 completed MEMO Morton, [facility] 08/31/2023 14:19:14 COVID-19, mRNA, LNP-S, PF, 50 mcg/0.5 mL 4 completed Lisa Cordova null, [facility] 04/22/2024 09:18:46 Influenza, high-dose, trivalent, PF 4 completed Lisa weinberg, [facility] 04/22/2024 09:18:46 Pneumococcal conjugate PCV20, polysaccharide [id number] conjugate, adjuvant, PF 5 completed Erlinda weinberg, [facility] 10/22/2024 13:39:36 pneumococcal polysaccharide PPV23 8 completed Not Available [facility] 08/31/2023 12:04:19 Td (adult), 2 Lf tetanus toxoid, preservative free, adsorbed 8 completed Not Available [facility] 08/31/2023 12:04:19 Influenza, split virus, trivalent, preservative 2 completed Not Available [facility] 08/31/2023 12:04:19 Tdap 3 completed Not Available [facility] 08/31/2023 12:04:19 Influenza, split virus, trivalent, preservative 3 completed Not Available [facility] 08/31/2023 12:04:19 Td (adult), 2 Lf tetanus toxoid, preservative free, adsorbed 4 completed Nahomi Gutierrez LPN null, [facility] 08/31/2023 15:28:37 Past Encounters Encounter ID Performer Location Encounter Start Date Encounter Closed Date Diagnosis/Indication Diagnosis SNOMED-CT Code Diagnosis ICD10 Code Diagnosis Note [id number] Gamaliel Quinonez MD Main Office [address] [facility] [address] [facility] [place] [id number] 10/14/2024 14:31:43 10/14/2024 15:43:52 Adult health examination 433836652 Z00.00 PCV20 advised via local pharmacy. Will screen based on risk factors. Breast, colon and cervical cancer screening are current. Regular dental and ophtho care advised as well as seat belt and sunscreen use. Distracted driving discussed. Pt currently demonstrat es risk for falls and no significan t cognitive decline. Pt reports having completed POLST form at home. Asked to bring in to update chart. Chronic hy poxemic respiratory failure 629207273 J96.11 Overall stable/at baseline. Followed by pulmonary. Anxiety state 852178689 F41.1 Well controlled on current ssri dose. Using benzo regularly but no evidence of adverse effects and pt feels that it helps her function. Body mass index 25-29 - overweight 671427650 E66.3 Z68.25 Administra tion of pneumococcal vaccine 00257177 Z23 Osteoporosis 61786149 M8 1.0 Declines follow up bone density. Hypoxia 214951920 R09.02 On supplement al O2 as per pulmonary. Chronic ob structive pulmonary disease 03329987 J44.9 Stable, following with pulmonary. Acute conjunctivitis 537 45734 H10.30 States that ophtho feels she has a blocked nasolacrim al duct. Has not been treated with abx so will try to see if it makes a difference . Long-term current use of anticoagulant 849167377 Z79.01 Currently therapeuti c and Pure hypercholesterolemia 232266277 E78.01 LDL at goal. Continue current dose. Reassess before next visit. Recurrent major depression in full remission 28849382 F33.42 Well controlled and med tolerated. Continue current dosing. Anemia 805109684 D64.9 Will monitor counts post op while on iron replacemme nt. Health Concerns Section Related Observation LastModified by Organization Detai ls LastModified Time None Recorded Concern Status LastModified by Organization Details LastModified Time None Recorded Payers Encounter Date Sequence Insurance Name Policy Number Policy Bonilla Covered Member ID Bonilla Member ID Guarantor Name 10/14/2024 1 [facility] (MEDICARE REPLACEMENT/A DVANTAGE - PPO) [id number] Betina Genoveva Tommy [id number] [phone] Betina Sanders Notes Date Note Type Note Provider Name and Address Organization Details Recorded Time 10/14/2024 text/html Medicare Annual Wellness VisitReported bypatient.Diet and Nutrition:healthy diet Fracture Risk:no recent explained fracture; no sudden unexplained fractures; no previous musculoskeletal injuries;history of fractures(wrist) Physical Activity:recent increase in physical activity; good physical condition;does not exercise on a regular basis;deconditioned due to sedentary lifestyle Depression Risk:never feels sad, empty, or tearful; no loss of interest in activities; no significant changes in weight; no agitation; no loss of energy; no feelings of worthlessness or guilt; no thoughts of suicide; no history of mood disorders;sleep disturbances or insomnia;history of depression Orientation:no disorientation to time; no disorientation to date; no disorientation to place Concentration and Memory:no decreased concentrating ability;memory lapses or loss;forgetting words Speech/Motor difficulties:no speech difficulties; no difficulty expressing formulated concepts; no difficulty with fine manipulative tasks; no difficulty writing/copying; no slowed reaction time; does not knock things over when trying to pick them up Hearing:loss of hearing in one ear only Vision:no vision problems Activities of Daily Living:able to dress with limited or no assistance; able to feed self with limited or no assistance; able to get out of chair or bed with limited or no assistance; able to groom with limited or no assistance; able to toilet with limited or no assistance;unable to bathe without assistance;unable to contol urination and bowels Instrumental Activities of Daily Living:able to manage medications with limited or no assistance; able to use the phone with limited or no assistance;unable to do house work without assistance;unable to grocery shop without assistance;unable to manage money without assistance;unable to to prepare meals without assistance Falls Risk Assessment:fall(s) in the past year 1;dizziness/vertigo Home Safety:no unsafe cameron hazzards; no unsafe stairs; working smoke/CO detectors; use of seatbelts; has hand bars in the bathroom/shower Gamaliel Quinonez MD [address], [address], [facility] [place]14/2024 17:08:02 OBGyn Episode No OBEpisode recorded.
--- OUTSIDE RECORDS SUMMARY | 2024-10-24 16:38 | XMS_ITS | Encounter Summary ---
Author Organization [facility] Address [address] [place] [address] Care Team Providers Care Manager Physical Name Role Phone Gamaliel Lemus MD Primary Care Provider [phone] Encounter Details Date Type Department Care Team (Late st Contact Info) Description 10/11/2024 [facility] - [facility] [address] [facility] [address] [place] [address] Rich Gonzalez MD [address] [place] [address] [place] [address] PFO (patent foramen ovale) Social History Tobacco [...] Team (Late st Contact Info) Description 10/25/2024 [facility] - [facility] [address] [facility] [address] [place] [address] Stephanie Griffith MA Elevated INR; PFO (patent foramen ovale) 10/25/2024 [facility] - [address] [place] [address] Rich Gonzalez MD [address] [place] [address] Dr Mc[address]on [address] [place] [address] PFO (patent foramen ovale) 05/07/2025 2:00 PM EDT Office Visit [facility] [address] [place] [address] Rich Gonzalez MD [address] [place] [address] Dr Mcclendon [address] [place] [address] documented as of this encounter 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 [...] Ordered Date PROTHROMBIN TIME WITH INR 1 10/04/2024 documented in this encounter Care Teams Manager Physical Relationship Specialty Start Date End Date Gamaliel Lemus MD [address] [place], [place] PCP - General Internal Medicine 08/15/24 documented as of this encounter
--- OUTSIDE RECORDS SUMMARY | 2024-10-24 16:38 | XMS_ITS | Encounter Summary ---
Author Organization [facility] Address [address] [place] [address] Care Team Providers Care Instrument Designer Name Role Phone Gamaliel Lemus MD Primary Care Provider [phone] Encounter Details Date Type Department Care Team (Late st Contact Info) Description 09/27/2024 Lab [facility]iology [facility] - [facility] [address] [place] [address] Stephanie Griffith MA Elevated INR; [...] (Late st Contact Info) Description 10/25/2024 Lab [facility]iology [facility] - [address] [place] [address] Stephanie Griffith MA Elevated INR; PFO (patent foramen ovale) 10/25/2024 Lab [facility] Cardiology [facility] - [facility] [address] [place] [address] Rich Gonzalez MD [address] [place] [address] Dr [address] [place] [address] PFO (patent foramen ovale) 05/07/2025 2:00 PM EDT Office Visit [facility] Cardiology [facility] [address] [place] [address] Dr Brian [address] [place] [address] Rich Gonzalez MD [address] [place] [address] Dr Mccl[address]on [address] [place] [address] documented as of this encounter 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 [...] 09/20/2024 documented in this encounter Care Teams Instrument Designer Relationship Specialty Start Date End Date Gamaliel Lemus MD [address] [facility] [address] [place], [place] PCP - General Internal Medicine 08/15/24 documented as of this encounter
--- OUTSIDE RECORDS SUMMARY | 2024-10-24 16:38 | XMS_ITS | Encounter Summary ---
Author Organization [facility] Address [address] [place] [address] Care Team Providers Care News Anchor Name Role Phone Gamaliel Lemus MD Primary Care Provider [phone] Encounter Details Date Type Department Care Team (Late st Contact Info) Description 10/11/2024 Lab [facility] Cardiology [facility] - [facility] [address] [place] [address] Stephanie Griffith MA Elevated INR; [...] st Contact Info) Description 10/25/2024 Lab [facility] Cardiology [facility] - [address] [place] [address] Stephanie Griffith [place] Elevated INR; PFO (patent foramen ovale) 10/25/2024 Lab [facility] Cardiology [facility] - [facility] [address] [place] [address] Rich Gonzalez MD [address] [place] [address] Dr [address]akan [address] [place] [address] PFO (patent foramen ovale) 05/07/2025 2:00 PM EDT Office Visit [facility] Cardiology [facility] [address] [place] [address] Dr Brian [address] [place] [address] Rich Gonzalez MD [address] [place] [address] Dr Mcclendon [address] [place] [address] documented as of this encounter 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 [...] 10/04/2024 documented in this encounter Care Teams News Anchor Relationship Specialty Start Date End Date Gamaliel Lemus MD [address] [facility] [address] [place], [place] PCP - General Internal Medicine 08/15/24 documented as of this encounter
--- OUTSIDE RECORDS SUMMARY | 2024-10-24 16:38 | XMS_ITS | Encounter Summary ---
Author Organization [facility] Address [address] [place] [address] Care Team Providers Care Environmental Engineering Intern Name Role Phone Gamaliel Lemus MD Primary Care Provider Encounter Details Date Type Department Care Team (Late st Contact Info) Description 10/04/2024 [facility] - [facility] [address] [facility] [address] [place] [address] Rich Gonzalez MD [address] [place] [address] [place] [address] PFO (patent foramen ovale) Social History Tobacco [...] Team (Late st Contact Info) Description 10/25/2024 [facility] [address] [facility] [address] [place] [address] Stephanie Griffith MA Elevated INR; PFO (patent foramen ovale) 10/25/2024 [facility] - [address] [place] [address] Rich Gonzalez MD [address] [place] [address] Dr [address] [place] [address] PFO (patent foramen ovale) 05/07/2025 2:00 PM EDT Office Visit [facility] Medical Center [address] [place] [address] Rich Gonzalez MD [address] [place] [address] Dr Mcclendon [address] [place] [address] documented as of this encounter 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 [...] 10/04/2024 documented in this encounter Care Teams Environmental Engineering Intern Relationship Specialty Start Date End Date Gamaliel Lemus MD [address] [place], [place] PCP - General Internal Medicine 08/15/24 documented as of this encounter
--- OUTSIDE RECORDS SUMMARY | 2024-10-24 16:38 | XMS_ITS | Encounter Summary ---
Author Organization [facility] Address [address] [place] [address] Care Team Providers Care Academic Physician Name Role Phone Gamaliel Lemus MD Primary Care Provider [phone] Encounter Details Date Type Department Care Team (Latest Contact Info) Description 10/09/2024 Anticoagulation - Warfarin Visit [facility] [place] [address] [place] [phone] Nathan-Rich Ontiveros MD [address] [place] [address] [address] [place], [place] [phone] PFO (patent foramen ovale) (Primary Dx) Social [...] Progress Notes * Padilla Acuna MA - 10/09/2024 1:39 PM EST Left voice message with instructions documented in this encounter Plan of Treatment Upcoming Encounters Date Type Department Care Team (Late st Contact Info) Description 10/25/2024 Lab [facility] Cardiology [facility] - [address] [place] [address] Stephanie Griffith [place] Elevated INR; PFO (patent foramen ovale) 10/25/2024 Lab [facility] - [address] [place] [address] Rich Gonzalez MD [address] [place] [address] Dr Mcclendon [address] [place] [address] PFO (patent foramen ovale) 05/07/2025 2:00 PM EDT Office Visit [facility] [address] [place] [address] Dr [address] [place] [phone] Rich Gonzalez MD [address] [place] [address] Dr Mcclendon [address] [place] [address] documented as of this encounter Procedures Procedure Name Priority Date/Time Associated Diagnosis Comments PROTHROMBIN TIME WITH INR Routine 10/09/2024 documented in this encounter Results * Prothrombin time with INR (10/09/2024) INR 1.9 Prothrombin Time POC Blood Venous blood specimen / Unknown 10/09/2024 Historical Provider LAB BLOOD ORDERABLES Ruth l Result documented in this encounter 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 Diagnosis PFO (patent foramen ovale)- Primary Ostium secundum type atrial septal defect Elevated INR Abnormal coagulation profile PFO (patent foramen ovale) Ostium secundum type atrial septal defect PFO (patent foramen ovale) Ostium secundum type atrial septal defect documented in this encounter Care Teams Academic Physician Relationship Specialty Start Date End Date Gamaliel Lemus MD [address] [place], [place] PCP - General Internal Medicine 08/15/24 documented as of this encounter
--- OUTSIDE RECORDS SUMMARY | 2024-10-24 16:38 | XMS_ITS | Encounter Summary ---
Author Organization [facility] Address [address] [place] [address] Care Team Providers Care Hydroelectric Station Chief Name Role Phone Gamaliel Lemus MD Primary Care Provider [phone] Encounter Details Date Type Department Care Team (Latest Contact Info) Description 10/10/2024 Anticoagulation - Warfarin Visit [facility] [place] [address] [place] [phone] Nathan-Rich Ontiveros MD [address] [place] [address] [address] [place], [place] [phone] PFO (patent foramen ovale) (Primary Dx) Social [...] Progress Notes * Padilla Acuna MA - 10/10/2024 11:19 AM EST Patient aware of instructions documented in this encounter Plan of Treatment Upcoming Encounters Date Type Department Care Team (Late st Contact Info) Description 10/25/2024 Lab [facility] Cardiology [facility] - [address] [place] [address] Stephanie Griffith [place] Elevated INR; PFO (patent foramen ovale) 10/25/2024 Lab [facility] - [address] [place] [address] Rich Gonzalez MD [address] [place] [address] Dr Mcclendon [address] [place] [address] PFO (patent foramen ovale) 05/07/2025 2:00 PM EDT Office Visit [facility] [address] [place] [address] Dr [address] [place] [phone] Rich Gonzalez MD [address] [place] [address] Dr Mcclendon [address] [place] [address] documented as of this encounter Procedures Procedure Name Priority Date/Time Associated Diagnosis Comments PROTHROMBIN TIME WITH INR Routine 10/10/2024 documented in this encounter Results * Prothrombin time with INR (10/10/2024) INR 2.3 Prothrombin Time POC Blood Venous blood specimen / Unknown 10/10/2024 Historical Provider LAB BLOOD ORDERABLES Ruth l Result documented in this encounter 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 Diagnosis PFO (patent foramen ovale)- Primary Ostium secundum type atrial septal defect Elevated INR Abnormal coagulation profile PFO (patent foramen ovale) Ostium secundum type atrial septal defect PFO (patent foramen ovale) Ostium secundum type atrial septal defect documented in this encounter Care Teams Hydroelectric Station Chief Relationship Specialty Start Date End Date Gamaliel Lemus MD [address] [place], [place] PCP - General Internal Medicine 08/15/24 documented as of this encounter
--- OUTSIDE RECORDS SUMMARY | 2024-10-24 16:38 | XMS_ITS | Encounter Summary ---
Author Organization [facility] Address [address] [place] [address] Care Team Providers Care Central Office Maintainer Name Role Phone Gamaliel Lemus MD Primary Care Provider [phone] Encounter Details Date Type Department Care Team (Late st Contact Info) Description 10/04/2024 Lab [facility] Cardiology [facility] - [facility] [address] [place] [address] [place] [address] Stephanie Griffith MA Elevated INR; [...] (Late st Contact Info) Description 10/25/2024 Lab [facility] Cardiology [facility] - [address] [place] [address] Stephanie Griffith MA Elevated INR; PFO (patent foramen ovale) 10/25/2024 Lab [facility] Cardiology [facility] - [facility] [address] [place] [address] Rich Gonzalez MD [address] [place] [address] Dr [address] [place] [address] PFO (patent foramen ovale) 05/07/2025 2:00 PM EDT Office Visit [facility] Cardiology [facility] [address] [place] [address] Dr Brian [address] [place] [address] Rich Gonzalez MD [address] [place] [address] Dr Mccl[address]on [address] [place] [address] documented as of this encounter 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 [...] 10/04/2024 documented in this encounter Care Teams Central Office Maintainer Relationship Specialty Start Date End Date Gamaliel Lemus MD [address] [facility] [address] [place], [place] PCP - General Internal Medicine 08/15/24 documented as of this encounter
--- OUTSIDE RECORDS SUMMARY | 2024-10-24 16:38 | XMS_ITS | Encounter Summary ---
Author Organization [facility] Address [address] [place] [address] Care Team Providers Care Nutrition Intern Name Role Phone Gamaliel Lemus MD Primary Care Provider [phone] Encounter Details Date Type Department Care Team (Late st Contact Info) Description 10/18/2024 [facility] - [facility] [address] [facility] [address] [place] [address] Rich Gonzalez MD [address] [place] [address] [place] [address] PFO (patent foramen ovale) Social History Tobacco [...] Team (Late st Contact Info) Description 10/25/2024 [facility]iology [facility] - [facility] [address] [facility] [address] [place] [address] Stephanie Griffith [place] Elevated INR; PFO (patent foramen ovale) 10/25/2024 [facility] Cardiology [facility] - [address] [place] [address] Rich Gonzalez MD [address] [place] [address] Dr [address]cl[address] [place] [address] PFO (patent foramen ovale) 05/07/2025 2:00 PM EDT Office Visit [facility] [address] [place] [address] Rich Gonzalez MD [address] [place] [address] Dr Mccl[address]on [address] [place] [address] documented as of this encounter 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 [...] Ordered Date PROTHROMBIN TIME WITH INR 1 10/18/2024 documented in this encounter Care Teams Nutrition Intern Relationship Specialty Start Date End Date Gamaliel Lemus MD [address] [place], [place] PCP - General Internal Medicine 08/15/24 documented as of this encounter
--- OUTSIDE RECORDS SUMMARY | 2024-10-24 16:38 | XMS_ITS | Encounter Summary ---
Author Organization [facility] Address [address] [place] [address] Care Team Providers Care Wig Sales Consultant Name Role Phone Gamaliel Lemus MD Primary Care Provider [phone] Encounter Details Date Type Department Care Team (Latest Contact Info) Description 10/16/2024 Anticoagulation - Warfarin Visit [facility] [place] [address] [place] [address] Nathan-Rich Ontiveros MD [address] [place] [address] [address] [place], [place] [phone] PFO (patent foramen ovale) (Primary Dx) Social [...] Progress Notes * Padilla Acuna MA - 10/16/2024 1:34 PM EDT Patient aware of instructions documented in this encounter Plan of Treatment Upcoming Encounters Date Type Department Care Team (Late st Contact Info) Description 10/25/2024 Lab [facility] Cardiology [facility] - [address] [place] [address] Stephanie Griffith MA Elevated INR; PFO (patent foramen ovale) 10/25/2024 Lab [facility] [address] [place] [address] Rich Gonzalez MD [address] [place] [address] Dr [address]cl[address] [place] [address] PFO (patent foramen ovale) 05/07/2025 2:00 PM EDT Office Visit [facility] [address] [place] [address] Dr [address] [place] [address] Rich Gonzalez MD [address] [place] [address] Dr [address]cl[address]on [address] [place] [address] documented as of this encounter Procedures Procedure Name Priority Date/Time Associated Diagnosis Comments PROTHROMBIN TIME WITH INR Routine 10/16/2024 documented in this encounter Results * Prothrombin time with INR (10/16/2024) INR 2.2 Prothrombin Time POC Blood Venous blood specimen / Unknown 10/16/2024 Historical Provider LAB BLOOD ORDERABLES Ruth l Result documented in this encounter 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 Diagnosis PFO (patent foramen ovale)- Primary Ostium secundum type atrial septal defect Elevated INR Abnormal coagulation profile PFO (patent foramen ovale) Ostium secundum type atrial septal defect PFO (patent foramen ovale) Ostium secundum type atrial septal defect documented in this encounter Care Teams Wig Sales Consultant Relationship Specialty Start Date End Date Gamaliel Lemus MD [address] [place], [place] PCP - General Internal Medicine 08/15/24 documented as of this encounter
--- OUTSIDE RECORDS SUMMARY | 2024-10-24 16:38 | XMS_ITS | Encounter Summary ---
Author Organization [facility] Address [address] [place] [address] Care Team Providers Care Rn Bariatric Name Role Phone Gamaliel Lemus MD Primary Care Provider [phone] Encounter Details Date Type Department Care Team (Late st Contact Info) Description 10/18/2024 Lab [facility] Cardiology [facility] - [facility] [address] [place] [address] Stephanie Griffith MA Elevated INR; [...] st Contact Info) Description 10/25/2024 Lab [facility] Cardiology [facility] - [address] [place] [address] Stephanie Griffith MA Elevated INR; PFO (patent foramen ovale) 10/25/2024 Lab [facility] Cardiology [facility] - [facility] [address] [place] [address] Rich Gonzalez MD [address] [place] [address] Dr [address] [place] [address] PFO (patent foramen ovale) 05/07/2025 2:00 PM EDT Office Visit [facility] Cardiology [facility] [address] [place] [address] Dr Brian [address] [place] [address] Rich Gonzalez MD [address] [place] [address] Dr [address] [place] [address] documented as of this encounter 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 [...] 10/18/2024 documented in this encounter Care Teams Rn Bariatric Relationship Specialty Start Date End Date Gamaliel Lemus MD [address] [facility] [address] [place], [place] PCP - General Internal Medicine 08/15/24 documented as of this encounter
== END 2024-10-24 14:31 | disposition home or self-care (01) ==
LOC: HO.HPS 13:57
PROVIDERS: PCP Pediatrics; Visit Provider Hospitalist
DX: J44.0 Chronic obstructive pulmonary disease with (acute) lower respiratory infection (principal); J92.0 Pleural plaque with presence of asbestos; J96.11 Chronic respiratory failure with hypoxia; K44.9 Diaphragmatic hernia without obstruction or gangrene; R05.3 Chronic cough; I38 Endocarditis, valve unspecified
CPT/HCPCS: 99214; G2211

== ENCOUNTER → 2024-10-24 13:56 | Outpatient (BNVA) | payer MEDICARE, SELFPAY | PROVIDERS: PCP Pediatrics; Visit Provider Hospitalist | DX: J44.0 Chronic obstructive pulmonary disease with (acute) lower respiratory infection (principal); J92.0 Pleural plaque with presence of asbestos; J96.11 Chronic respiratory failure with hypoxia; K44.9 Diaphragmatic hernia without obstruction or gangrene; R05.3 Chronic cough; I38 Endocarditis, valve unspecified; Z99.81 Dependence on supplemental oxygen; Z77.090 Contact with and (suspected) exposure to asbestos | CPT/HCPCS: 99212 ==